=== PATIENT | male | born 1945 | race Caucasian/White ===

== ENCOUNTER 2016-11-05 11:45 | Inpatient (IN) ==
--- NOTE | 2016-11-05 15:08 | Emergency Department Note ---
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 Return to the emergency department if there is bleeding of any type, fever, chest pain, shortness of breath, abdominal pain, increasing redness or swelling in your left foot or leg, coughing up blood, passing out, weakness, any trouble walking talking hearing seeing or speaking, coldness blueness numbness or weakness of any extremity, if the areas of redness in your foot are not improving within 24 hours, blistering of the skin or rapidly spreading redness on the leg, burke discolored toes, worsening or any other concern. Prescriptions: Levofloxacin [Levaquin] 750 mg PO DAILY #4 tablet Referrals: Jun Shah MD [Primary Care Provider] - Forms: ED Satisfaction Letter General Adult HPI - General Chief complaint: ED Extremity Problem,Nontraumatic Stated complaint: left foot/leg swelling Time Seen by Provider: 11/05/16 12:19 Source: patient Limitations: no limitations - History of Present Illness HPI Narrative: 71-year-old male with a history of diabetes mellitus reports emergency department complaining of left foot swelling and redness. His third and fourth toes have become more discolored and now his whole foot is somewhat reddened, he reports it feels hot. There is no history of trauma. There is no history of leg pain. The foot is not been cold blue numb or weak. The patient takes Coumadin for previous DVT, he reports his last INR is 1.7. There is been no calf swelling or tenderness. No chest pain shortness of breath or coughing up blood. No abdominal pain vomiting or bleeding of any type. No trouble walking talking hearing seeing or speaking there is no history of acute headache or back pain. The patient is worried about his left foot, there is concern for potential infection. Pain Scale: 0 - Related Data Home Medications Medication Instructions Recorded Confirmed Alprazolam [Xanax 0.25 MG Tablet] 0.25 mg PO TID PRN 11/16/15 11/05/16 Atenolol [Tenormin] 50 mg PO DAILY 11/16/15 11/05/16 Glimepiride [Amaryl] 2 mg PO DAILY 11/16/15 11/05/16 Indinavir Sulfate [Crixivan] 800 mg PO TID 11/16/15 11/05/16 Lamivudine/Zidovudine [Combivir] 1 tab PO BID 11/16/15 11/05/16 RX: Lisinopril [Zestril] 20 mg PO DAILY 11/16/15 11/05/16 RX: Omeprazole 20 mg PO DAILY 11/16/15 11/05/16 Venlafaxine HCl [Venlafaxine HCl 75 mg PO DAILY 11/16/15 11/05/16 ER] Ergocalciferol (VITAMIN D2) 50,000 unit PO WE 11/05/16 11/05/16 [Vitamin D2] Nut.tx.gluc.intoler,Lac-Fr,Soy 1 can PO BID 11/05/16 11/05/16 [Glucerna] Warfarin [Coumadin] 3 mg PO 1800 11/05/16 11/05/16 Previous Rx's Medication Instructions Recorded Levofloxacin [Levaquin] 750 mg PO DAILY #4 tablet 11/05/16 Allergies Allergy/AdvReac Type Severity Reaction Status Date / Time Sulfa (Sulfonamide Allergy Flushing Verified 11/05/16 12:06 Antibiotics) All systems ED: reviewed and negative except as stated. Past Medical History - Past Medical History Medical history: Reports: diabetes, HIV/AIDS, hypertension, myocardial infarction Surgical history: Reports: other Psychiatric history: Reports: anxiety - Social History Smoking Status: Never smoker Smokeless Tobacco Status: No Alcohol use: Reports: rarely Drug use: Reports: none Physical Exam - General Limitations: no limitations General appearance: alert, in no apparent distress - Head Head exam: atraumatic, normocephalic, normal inspection - Eye Eye exam: Present: normal appearance, PERRL, EOMI. Absent: scleral icterus, conjunctival injection, miosis, mydriasis - ENT ENT exam: normal exam, normal oropharynx, mucous membranes moist, TM's normal bilaterally, normal external ear exam - Neck Neck exam: Present: normal inspection, full ROM, trachea midline - Chest Chest inspection: Present: symmetric chest wall rise. Absent: tenderness - Respiratory Respiratory exam: Present: normal lung sounds bilaterally. Absent: respiratory distress, wheezes, accessory muscle use, prolonged expiratory phase - Cardiovascular Cardiovascular exam: Present: regular rate, normal rhythm, normal heart sounds - Abdominal Exam Abdominal exam: Present: soft, Non-Tender, normal bowel sounds. Absent: tenderness, distention, guarding, rebound, rigidity, pulsatile mass - Extremities Exam Extremities exam: Present: full ROM, normal capillary refill, other (The upper extremities and right lower extremities are supple and warm and well-perfused without acute trauma or acute defect. The left lower extremity shows a good range of motion of the hip knee and ankle, left foot is erythematous and warm to touch. No crepitance of the skin or blackening, toes 3 and 4 the left foot show edema with some slight flaky skin. The dorsalis pedis pulse is easily palpable. All 4 extremities are warm and well perfused without cyanosis.). Absent: tenderness, joint swelling, calf tenderness - Expanded Lower Extremity Exam Hip/Pelvis exam: Present: full ROM. Absent: tenderness Upper leg exam: Present: full ROM. Absent: tenderness Knee exam: Present: full ROM. Absent: tenderness Lower leg exam: Present: full ROM. Absent: tenderness, swelling, abrasion, Homans' sign Ankle exam: Present: full ROM. Absent: tenderness Foot/toe exam: Present: full ROM, tenderness, swelling, erythema. Absent: ecchymosis, deformity, amputation, puncture wound, foreign body, nail avulsion Neurovascular/Tendon exam: Present: normal capillary refill. Absent: pulse deficit, motor deficit, sensory deficit, tendon deficit, extremity cold to touch , pallor - Back Exam Back exam: Present: normal inspection, full ROM. Absent: tenderness, CVA tenderness (R), CVA tenderness (L), vertebral tenderness - Neurological Exam Neurological exam: Present: alert, oriented X3, CN II-XII intact. Absent: motor sensory deficit - Psychiatric Psychiatric exam: Present: normal affect - Skin Skin exam: Present: warm, dry, intact, normal color, other (Skin changes on left foot as described.). Absent: rash, cyanosis, diaphoresis, erythema, pallor , mottled Course Vital Signs Temperature 97.5 F L 11/05/16 12:01 Pulse Rate 84 11/05/16 12:01 Respiratory Rate 16 11/05/16 12:01 Blood Pressure 129/87 11/05/16 12:01 O2 Sat by Pulse Oximetry 95 11/05/16 12:01 Temperature 97.5 F L 11/05/16 12:01 Pulse Rate 84 11/05/16 12:01 Respiratory Rate 16 11/05/16 12:01 Blood Pressure 163/96 11/05/16 15:07 O2 Sat by Pulse Oximetry 95 11/05/16 12:01 Oxygen Delivery Oxygen Delivery Room Air Medical Decision Making - MDM Narrative Medical decision making narrative: The patient appears to be stable, he is known to have HIV, his CBC is normal, lactic acid negative, no evidence of osteomyelitis, acute neurovascular compromise, trauma, or teresa tissue necrosis. The patient preferred to go home and be treated with outpatient antibiotics versus be admitted. I did offer him admission for further evaluation and treatment but he declined. His INR is therapeutic. The patient had a dose of Levaquin IV here. A prescription for Levaquin 750 mg one by mouth daily beginning tomorrow #4 was given. He declined the need for pain medications. He is here with his male car tracer who can monitor him. The patient is ambulatory. He and his male car tracer seem very reliable, they were given detailed verbal and written instructions regarding cellulitis and precautions. He was discharged in stable condition with specific return to ER and follow-up instructions. - Lab Data Lab results reviewed: Yes I reviewed the patient's lab results. Result diagrams: 11/05/16 15:51 11/05/16 17:17 Lab Results 11/05/16 11/05/16 11/05/16 Range/Units 15:51 17:17 17:17 WBC 6.0 (4.3-11.1) K/mcL RBC 4.30 (4.19-5.50) M/mcL Hgb 14.1 (12.9-16.9) g/dL Hct 42.3 (37.5-50.1) % MCV 98.4 (83.0-100.0) fL MCH 32.8 (28.0-33.3) pg MCHC 33.3 (31.6-35.5) g/dL RDW 14.3 (11.5-14.5) % Plt Count 180 (140-400) K/mcL MPV 10.1 (9.4-12.4) fL Immature Gran % 0.2 (0-4) % Seg Neutrophils % 55.0 % Lymphocytes % 32.6 % Monocytes % 9.2 % Eosinophils % 2.7 % Basophils % 0.3 % Neutrophils # 3.3 (1.6-8.9) K/mcL Lymphocytes # 2.0 (0.6-4.6) K/mcL Monocytes # 0.6 (0.0-1.3) K/mcL Eosinophils # 0.2 (0.0-0.6) K/mcL Basophils # 0.0 (0.0-0.2) K/mcL Immature Plt Fraction 5.1 (1.1-6.1) % PT (9.4-12.1) Seconds INR APTT (26.0-36.0) Seconds Sodium 138 (136-145) mEq/L Potassium 4.0 (3.5-4.5) mEq/L Chloride 103 (98-109) mEq/L Carbon Dioxide 26 (19-29) mEq/L BUN 16 (8-26) mg/dL Creatinine 0.85 (0.72-1.25) mg/dL Est GFR ( Amer) > 60 (> 60) Est GFR (Non-Af Amer) > 60 (> 60) BUN/Creatinine Ratio 19 (6-26) Glucose 156 H (70-99) mg/dL Calculated Osmolality 290 (280-300) Lactic Acid 1.5 (0.5-2.2) mmol/L Calcium 9.1 (8.6-10.8) mg/dL C-Reactive Protein 37 H (Less than 5) mg/L 11/05/16 Range/Units 17:17 WBC (4.3-11.1) K/mcL RBC (4.19-5.50) M/mcL Hgb (12.9-16.9) g/dL Hct (37.5-50.1) % MCV (83.0-100.0) fL MCH (28.0-33.3) pg MCHC (31.6-35.5) g/dL RDW (11.5-14.5) % Plt Count (140-400) K/mcL MPV (9.4-12.4) fL Immature Gran % (0-4) % Seg Neutrophils % % Lymphocytes % % Monocytes % % Eosinophils % % Basophils % % Neutrophils # (1.6-8.9) K/mcL Lymphocytes # (0.6-4.6) K/mcL Monocytes # (0.0-1.3) K/mcL Eosinophils # (0.0-0.6) K/mcL Basophils # (0.0-0.2) K/mcL Immature Plt Fraction (1.1-6.1) % PT 21.7 H (9.4-12.1) Seconds INR 2.0 APTT 44.1 H (26.0-36.0) Seconds Sodium (136-145) mEq/L Potassium (3.5-4.5) mEq/L Chloride (98-109) mEq/L Carbon Dioxide (19-29) mEq/L BUN (8-26) mg/dL Creatinine (0.72-1.25) mg/dL Est GFR ( Amer) (> 60) Est GFR (Non-Af Amer) (> 60) BUN/Creatinine Ratio (6-26) Glucose (70-99) mg/dL Calculated Osmolality (280-300) Lactic Acid (0.5-2.2) mmol/L Calcium (8.6-10.8) mg/dL C-Reactive Protein (Less than 5) mg/L - Radiology Data Radiology results reviewed: Yes I reviewed the patient's radiology results.
[2016-11-05 16:06] LABS: Basophils % 0.3 %; Eosinophils # 0.2 K/mcL (0.0-0.6); Eosinophils % 2.7 %; Hematocrit 42.3 % (37.5-50.1); Hemoglobin 14.1 g/dL (12.9-16.9); Immature Granulocytes % 0.2 % (0-4); Immature Platelets 5.1 % (1.1-6.1); Lymphocytes % 32.6 %; Mean Corpuscular HGB Conc 33.3 g/dL (31.6-35.5); Mean Corpuscular Hemoglobin 32.8 pg (28.0-33.3); Mean Corpuscular Volume 98.4 fL (83.0-100.0); Mean Platelet Volume 10.1 fL (9.4-12.4); Monocytes # 0.6 K/mcL (0.0-1.3); Monocytes % 9.2 %; Neutrophils # 3.3 K/mcL (1.6-8.9); Platelet Count 180 K/mcL (140-400); Red Cell Distribution Width 14.3 % (11.5-14.5)
[2016-11-05 17:42] LABS: BUN/Creatinine Ratio 19 (6-26); Blood Urea Nitrogen 16 mg/dL (8-26); Calcium 9.1 mg/dL (8.6-10.8); Carbon Dioxide 26 mEq/L (19-29); Chloride 103 mEq/L (98-109); Glucose 156 mg/dL (70-99); Osmolality,Calculated 290 (280-300); Sodium 138 mEq/L (136-145); eGFR For African Americans > 60 (> 60); eGFR For Non-African Americans > 60 (> 60)
[2016-11-05 17:59] LABS: Prothrombin Time 21.7 Seconds (9.4-12.1)
[2016-11-05 18:05] LABS: C-Reactive Protein 37 mg/L (Less than 5)
[2016-11-05 18:07] LABS: Activated Partial Thrombo Time 44.1 Seconds (26.0-36.0)
[2016-11-05] MEDS ORDERED: Levofloxacin 750 MG/150 ML 750 MG/150 ML BAG IVPB ONE (18:39)
--- NOTE | 2016-11-05 22:12 | Internal Med History&Physical ---
Date of Encounter: 11/05/16 Time of Encounter: 22:11 Assessment and Plan (1) Cellulitis Current visit: Yes Status: Acute patient with a history of diabetes who comes in after self induced trauma to his toe starts off a cellulitis, we will admit for observation on Abx due to his multiple co-morbidities mostly HIV/DM, we will cover for MRSA and pseudomonas with Vancomycin and Zosyn respectively we will do pain management and foot elevation, we will get podiatry to weigh in , currently imaging does not suggest osteomyelitis Qualifiers: Site of cellulitis: extremity Site of cellulitis of extremity: toe Laterality: left Qualified Code(s): L03.032 - Cellulitis of left toe (2) Factor V Leiden Current visit: Yes Status: Chronic he developed Left LLE DVT in 12/2002 and found at the time to have factor V gene mutation so has been on lifelong anticoagulation with warfarin since then , his INR is subtherapeutic at 1.7, we will continue warfarin and follow INR, no need for bridging (3) Hypertension Current visit: Yes Status: Chronic will continue atenolol and lisinopril with BP monitoring Qualifiers: Hypertension type: essential hypertension Qualified Code(s): I10 - Essential (primary) hypertension (4) Diabetes mellitus type II, non insulin dependent Current visit: Yes Status: Chronic hx of type 2 DM, on oral hypoglycemic, we will hold that and do SSI insulin should he have to go for surgery (5) HIV (human immunodeficiency virus infection) Current visit: Yes Status: Chronic he does not recall his last CD4 count but reports compliance with his medications and undetectable viral load, we will continue this medications Internal Medicine - H&P: HPI Chief complaint: left 3rd toe redness and pain Admitted From: Emergency Dept Plans for Post Hospital Care: Home History of present illness: Mr. Ramesh is a 71 year old male with a history of well controlled DM type 2/ HIV with undetectable viral load/well controlled HTN/hammer toes was brought in today for left 3rd toe redness and swelling. Patient reports that he was in his usual state of health until about a week ago when he picked off callus on the left 3rd toe and it bled for a little bit. Since then the toe has been increasingly painful and red but on Friday it started getting swollen and the pain is getting worse so he reported to the ER of [facility] for further care. He denies fever, chills, nausea or vomiting, but reports pain with use of the toe and when he ambulates. No swelling noted in his calves. He reports that he already has an appointment to see Dr Lehman, the independent producer, on Friday. Past Med Surg Social Fam HX - Past Medical History Source: patient Medical history: DVT (LLE DVT 12/2002), diabetes, GERD, HIV/AIDS (in ), hypertension, myocardial infarction (NSTEMI in 03/2004, s/p PCI with stents), other (factor V leiden deficiency) Psychiatric history: anxiety, depression - Past Surgical History Surgical History: angioplasty/stent (1 stent in 03/2004 for NSTEMI) - Social History Smoking Status: Never smoker Smokeless Tobacco Status: No Alcohol use: rarely Drug use: none Current living situation: Home - Independent Activity Level: Independent ambulation - Family History Mother Hx Family Cardiac Disorders: No Hx Family Respiratory Disorders: No Hx Family Cancer: Yes (Uterine cancer) Hx Family GI Disorders: No Hx Family Endocrine Disorder: No Hx Family Neuromuscular Disorders: No Hx Family Neurologic Disorders: No Hx Family HEENT Disorders: No Hx Family Autoimmune Disorders: No Sister Hx Family Cardiac Disorders: No Hx Family Respiratory Disorders: No Hx Family Cancer: Yes (Uterine) Hx Family GI Disorders: No Hx Family Endocrine Disorder: No Hx Family Neuromuscular Disorders: No Hx Family Neurologic Disorders: No Hx Family HEENT Disorders: No Hx Family Autoimmune Disorders: No - Additional Family History Additional family history: He does not know about his father's medical history, mother in her 20's of ovarian cancer, his daughter has factor V leiden mutation Internal Medicine - H&P: Meds Alprazolam [Xanax 0.25 MG Tablet] 0.25 mg PO TID PRN 11/16/15 [History] Atenolol [Tenormin] 50 mg PO DAILY 11/16/15 [History] Glimepiride [Amaryl] 2 mg PO DAILY 11/16/15 [History] Indinavir Sulfate [Crixivan] 800 mg PO TID 11/16/15 [History] Lamivudine/Zidovudine [Combivir] 1 tab PO BID 11/16/15 [History] Lisinopril [Zestril] 20 mg PO DAILY 11/16/15 [History] Omeprazole 20 mg PO DAILY 11/16/15 [History] Venlafaxine HCl [Venlafaxine HCl ER] 75 mg PO DAILY 11/16/15 [History] Ergocalciferol (VITAMIN D2) [Vitamin D2] 50,000 unit PO WE 11/05/16 [History] Levofloxacin [Levaquin] 750 mg PO DAILY #4 tablet 11/05/16 [Rx] Nut.tx.gluc.intoler,Lac-Fr,Soy [Glucerna] 1 can PO BID 11/05/16 [History] Warfarin [Coumadin] 3 mg PO 1800 11/05/16 [History] Allergies Sulfa (Sulfonamide Antibiotics) Allergy (Verified 11/05/16 12:06) Flushing All Systems PM: A 10-system review of systems was performed and is negative for pertinent findings except as documented above in the HPI. - Constitutional Vitals: Temp Pulse Resp BP Pulse Ox 97.6 F 67 16 146/74 95 11/05/16 21:39 11/05/16 21:39 11/05/16 21:39 11/05/16 21:39 11/05/16 21:39 - General General appearance: Elderly male, frail looking, alert, in no apparent distress - Head Head exam: atraumatic, normocephalic, prominent check bones - Eye Eye exam: normal appearance, PERRL, EOMI. Absent: scleral icterus, conjunctival injection, miosis, mydriasis - ENT ENT exam: normal oropharynx, mucous membranes moist, TM's normal bilaterally, normal external ear exam - Neck Neck exam: normal inspection, full ROM, trachea midline - Respiratory Respiratory exam: normal lung sounds bilaterally, no wheeze or crackles heard - Cardiovascular Cardiovascular exam: regular rate, normal rhythm, normal heart sounds, no ankle edema - Abdominal Exam Abdominal exam: soft, Non-Tender, normal bowel sounds, no masses palpable, - Extremities Exam Extremities exam: left 3rd toe ulceration and redness noted, mildly tender to touch, minor 2nd toe involvement noted - Neurological Exam Neurological exam: alert, oriented X3, CN II-XII intact, non focal motor exam but diminished sensation in stocking pattern - Psychiatric Psychiatric exam: Present: normal affect - Skin Skin exam: skin changes per foot exam Internal Med - H&P Results - Labs CBC & Chem 7: 11/06/16 03:29 11/06/16 03:29 - Diagnostic Studies Other Images Status: image reviewed by me (Xray of foot)
[2016-11-05] MEDS ORDERED: Naloxone 0.4 MG/ML INJ IVP PRN (22:19)
[2016-11-05] MEDS ORDERED: Acetaminophen 325 MG TABLET PO PRN (22:19)
[2016-11-05] MEDS ORDERED: ALPRAZolam 0.25 MG TABLET PO PRN (22:21)
[2016-11-05] MEDS ORDERED: Dextrose Gel 15 GM PO PRN ×2 (22:23)
[2016-11-05] MEDS ORDERED: *HR* Dextrose 50 % in Water (Syg) 50 ML SYRINGE IVP PRN (22:23)
[2016-11-05] MEDS ORDERED: D5% in Water 1,000 ML IVC PRN (22:23)
[2016-11-05] MEDS ORDERED: NON-FORMULARY MEDICATION 1 EACH EACH (Nut.Tx.Gluc.Intoler,Lac-Fr,Soy [Glucerna] 1 CAN) PO SCH (22:30)
[2016-11-06] MEDS: *HR* Warfarin 3 MG TABLET PO SCH ×2 (03:00→18:06)
[2016-11-06] MEDS: Insulin LISPRO 300 UNITS/3 ML VIAL SQ SCH ×5 (03:00→21:21)
[2016-11-06] MEDS: [UNRECOGNIZED DRUG - OTHER] PO SCH ×4 (03:00→21:15)
[2016-11-06] MEDS: Vancomycin 1,000 MG in D5% in Water 250 ML IVPB SCH ×3 (03:01→22:34)
[2016-11-06] MEDS: 0.9 % Sodium Chloride 1,000 ML IVC SCH ×4 (03:02→21:15)
[2016-11-06] MEDS: Piperacillin/Tazobactam 3.375 GM in D5% in Water (Mini-Bag+) 100 ML IVPB SCH ×3 (03:21→15:29)
[2016-11-06 04:34] LABS: Basophils % 0.4 %; Eosinophils # 0.2 K/mcL (0.0-0.6); Eosinophils % 3.9 %; Hematocrit 40.3 % (37.5-50.1); Hemoglobin 13.4 g/dL (12.9-16.9); INR 2.1; Immature Granulocytes % 0.2 % (0-4); Lymphocytes # 2.2 K/mcL (0.6-4.6); Lymphocytes % 38.5 %; Mean Corpuscular HGB Conc 33.3 g/dL (31.6-35.5); Mean Corpuscular Hemoglobin 32.7 pg (28.0-33.3); Mean Corpuscular Volume 98.3 fL (83.0-100.0); Mean Platelet Volume 10.2 fL (9.4-12.4); Monocytes # 0.6 K/mcL (0.0-1.3); Monocytes % 9.6 %; Neutrophils # 2.7 K/mcL (1.6-8.9); Platelet Count 163 K/mcL (140-400); Prothrombin Time 23.2 Seconds (9.4-12.1); Red Cell Distribution Width 13.9 % (11.5-14.5); Segmented Neutrophils % 47.4 %
[2016-11-06 04:42] LABS: BUN/Creatinine Ratio 25 (6-26); Blood Urea Nitrogen 18 mg/dL (8-26); Carbon Dioxide 26 mEq/L (19-29); Chloride 105 mEq/L (98-109); Glucose 58 mg/dL (70-99); Magnesium 1.6 mg/dL (1.6-2.6); Osmolality,Calculated 286 (280-300); Phosphorous 3.3 mg/dL (2.3-4.7); Potassium 3.8 mEq/L (3.5-4.5); Sodium 138 mEq/L (136-145); eGFR For African Americans > 60 (> 60); eGFR For Non-African Americans > 60 (> 60)
[2016-11-06] MEDS ORDERED: Vancomycin 1,000 MG in D5% in Water 250 ML IVPB SCH (06:00)
[2016-11-06] MEDS ORDERED: *HR* Glimepiride 2 MG TABLET PO SCH (09:00)
[2016-11-06] MEDS: Venlafaxine XR (24 HR) 75 MG CAP.ER.24H PO SCH (09:15)
[2016-11-06] MEDS: Lisinopril 20 MG TABLET PO SCH (09:18)
--- NOTE | 2016-11-06 12:23 | Podiatry Consult Note ---
Date of Encounter: 11/06/16 Time of Encounter: 11:00 Assessment and Plan (1) Ulcer Current visit: Yes Status: Acute Assessment complete at bedside Xray shows evidence of osteomyelitis to tip of distal phalanx toe #3 Will obtain wound cultures today Will plan for amputation of distal phalanx tomorrow 11/07 per Continue IV antibiotics Scab to toe #2 shows no clinical signs of infection NPO after midnight Call with any questions or concerns (2) Diabetes mellitus type II, non insulin dependent Current visit: Yes Status: Chronic (3) Cellulitis Current visit: Yes Status: Acute Qualifiers: Site of cellulitis: extremity Site of cellulitis of extremity: toe Laterality: left Qualified Code(s): L03.032 - Cellulitis of left toe History of Present Illness HPI: Mr. Ramesh is a 71 year old male with a history of well controlled DM type 2/ HIV with undetectable viral load/well controlled HTN/hammer toes. Patient had scheduled appointment on 11/08 with for issue of digit #3 left foot, however presented to ED stating that toe was more red and swollen than previously noted. Patient states about 2 weeks ago he picked a callus from the distal aspect of toe #3 left foot. Patient states he has hammertoes and callus formation to this area is very common, patient states that since then it has continued to turn darker to the distal aspect and has progressive redness to the toe. He denies fever, chills, nausea or vomiting. States he has pain to toe with ambulation. Patient also reports scab to top of toe #2 left foot, states this appeared after wearing dress shoes on friday but appears to be healing. Patient denies any calf pain. Past Med Surg Social Fam HX - Past Medical History Medical history: DVT (LLE DVT 12/2002), diabetes, GERD, HIV/AIDS (in ), hypertension, myocardial infarction (NSTEMI in 03/2004, s/p PCI with stents), other (factor V leiden deficiency) Psychiatric history: anxiety, depression - Past Surgical History Surgical History: angioplasty/stent (1 stent in 03/2004 for NSTEMI) - Social History Smoking Status: Never smoker Smokeless Tobacco Status: No Alcohol use: rarely Drug use: none - Family History Mother Hx Family Cardiac Disorders: No Hx Family Respiratory Disorders: No Hx Family Cancer: Yes (Uterine cancer) Hx Family GI Disorders: No Hx Family Endocrine Disorder: No Hx Family Neuromuscular Disorders: No Hx Family Neurologic Disorders: No Hx Family HEENT Disorders: No Hx Family Autoimmune Disorders: No Sister Hx Family Cardiac Disorders: No Hx Family Respiratory Disorders: No Hx Family Cancer: Yes (Uterine) Hx Family GI Disorders: No Hx Family Endocrine Disorder: No Hx Family Neuromuscular Disorders: No Hx Family Neurologic Disorders: No Hx Family HEENT Disorders: No Hx Family Autoimmune Disorders: No Medications and Allergies Alprazolam [Xanax 0.25 MG Tablet] 0.25 mg PO TID PRN 11/16/15 [History] Atenolol [Tenormin] 50 mg PO DAILY 11/16/15 [History] Glimepiride [Amaryl] 2 mg PO DAILY 11/16/15 [History] Indinavir Sulfate [Crixivan] 800 mg PO TID 11/16/15 [History] Lamivudine/Zidovudine [Combivir] 1 tab PO BID 11/16/15 [History] Lisinopril [Zestril] 20 mg PO DAILY 11/16/15 [History] Omeprazole 20 mg PO DAILY 11/16/15 [History] Venlafaxine HCl [Venlafaxine HCl ER] 75 mg PO DAILY 11/16/15 [History] Ergocalciferol (VITAMIN D2) [Vitamin D2] 50,000 unit PO WE 11/05/16 [History] Levofloxacin [Levaquin] 750 mg PO DAILY #4 tablet 11/05/16 [Rx] Nut.tx.gluc.intoler,Lac-Fr,Soy [Glucerna] 1 can PO BID 11/05/16 [History] Warfarin [Coumadin] 3 mg PO 1800 11/05/16 [History] Allergies Sulfa (Sulfonamide Antibiotics) Allergy (Verified 11/05/16 12:06) Flushing All Systems Reviewed: A 10-system review of systems was performed and is negative for pertinent findings except as documented above in the HPI. Physical Exam - Constitutional Vitals: Temp Pulse Resp BP Pulse Ox 97.5 F L 64 16 150/82 94 11/06/16 11:02 11/06/16 11:02 11/06/16 11:02 11/06/16 11:02 11/06/16 11:02 - Ankle & Foot Appearance ankle: normal Foot swelling location: toes Foot pain worse with weight bearing: Yes Exam: General Examination: CONSTITUTIONAL: Alert, oriented, in no acute distress, non-toxic. EXTREMITIES: CFT 3 seconds all toes. Edema +1 and pedal pulses +2 DP/PT SKIN: Skin with decreased turgor, decreased subcutaneous tissue, skin thin and shiny with trophic changes associated with comorbidities as described in history.. NEUROLOGIC: Mildly diminished sensation Musculoskeletal: Hammertoe deformity of toes #2 #3 #4 bilaterally Hyperkeratotic/scabbed wet ulceration 1.4x1.4 noted to distal aspect of toe #3 left foot. Purulent drainage expressed with gentle palpation. Mild warmth and edema noted. Erythema noted, does not extend past MP joint of toe. Small 0.2cmx0.2cm scab noted to dorsal aspect of toe #2 left foot. Dry scab. No clinical signs of infection. No erythema, edema, warmth or drainage. Results - Labs Result Diagrams: 11/06/16 03:29 11/06/16 03:29 Labs: Abnormal lab results RBC 4.10 M/mcL (4.19-5.50) L 11/06/16 03:29 PT 23.2 Seconds (9.4-12.1) H 11/06/16 03:29 APTT 44.1 Seconds (26.0-36.0) H 11/05/16 17:17 Glucose 58 mg/dL (70-99) L 11/06/16 03:29 POC Glucose 133 (58-89) H 11/06/16 11:00 C-Reactive Protein 37 mg/L (Less than 5) H 11/05/16 17:17 H & H 11/06/16 Range/Units 03:29 Hgb 13.4 (12.9-16.9) g/dL Hct 40.3 (37.5-50.1) % All other labs normal. Consult Discharge Plan - Plan Referrals: Jun Shah MD [Primary Care Provider] -
--- NOTE | 2016-11-06 17:39 | Internal Med Progress Note ---
Date of Encounter: 11/06/16 Time of Encounter: 09:20 - Assessment and plan (1) Ulcer Current Visit: Yes Status: Acute Assessment and plan: Patient has ulcer to left third toe. Patient states that he had a callus and picked it and it evolved into cellulitis with necrotic tissue. Patient was seen by podiatry today. They have requested wound cultures and that we continue IV antibiotics. Patient will be nothing by mouth after midnight for surgical amputation of distal phalanx tomorrow per Dr. Lehman. Nothing by mouth after midnight Continue IV antibiotics Wound culture Surgery tomorrow. (2) Cellulitis Current Visit: Yes Status: Acute Assessment and plan: Plan as above. Qualifiers: Site of cellulitis: extremity Site of cellulitis of extremity: toe Laterality: left Qualified Code(s): L03.032 - Cellulitis of left toe (3) Factor V Leiden Current Visit: Yes Status: Chronic Assessment and plan: History of DVT. At that time was found to have DrNorberto Black mutation. He has been on Coumadin since 2002 at time of this incident. INR subtherapeutic at 1.7. We will continue warfarin and the follow the INR. Patient has surgery in the morning. (4) Hypertension Current Visit: Yes Status: Chronic Assessment and plan: Chronic. Continue home medications. Qualifiers: Hypertension type: essential hypertension Qualified Code(s): I10 - Essential (primary) hypertension (5) Diabetes mellitus type II, non insulin dependent Current Visit: Yes Status: Chronic Assessment and plan: Chronic. well controlled. A1c 6.6. Continue home medications. (6) HIV (human immunodeficiency virus infection) Current Visit: Yes Status: Chronic Assessment and plan: Patient sees Dr. Shah for HIV. He is not sure of his last T-cell count but states that he takes his medications regularly. Continue medications (7) DVT prophylaxis Current Visit: No Status: Acute Assessment and plan: Patient takes Coumadin. He is having foot surgery tomorrow. Will monitor. - Time Spent With Patient less than 15 minutes - Subjective Interval history: Patient is a very pleasant and alert 71-year-old male who was seen at about 6 920 this morning. He is being seen for cellulitis and is on vancomycin and Zosyn. These antibiotics will be continued. He was seen by Dr. Lehman today as well. Planning for amputation of left third toe tomorrow due to diabetic ulcer. He had a callus and he picked it off and it became infected. He says he does not feel pain. He does have palpable pulses bilateral feet. Left toe wound is not draining or bleeding. It is red and scaly with necrotic tissue on the plantar surface of toe. - Constitutional Vitals: Temp Pulse Resp BP Pulse Ox 98.3 F 76 15 145/81 95 11/06/16 14:59 11/06/16 14:59 11/06/16 14:59 11/06/16 14:59 11/06/16 14:59 General appearance: Present: cooperative, A&O X 3, pleasant, answers questions appropriately - Head Head exam: Present: normal inspection - Eye Eye exam: Present: normal appearance, conjuntiva pink - ENT ENT exam: Present: mucous membranes moist, normal exam - Neck Neck exam general surgery: Present: normal inspection. Absent: lymphadenopathy , tenderness - Respiratory Respiratory exam: Present: decreased breath sounds, CTAB. Absent: respiratory distress, rhonchi, stridor, wheezes - Cardiovascular Cardiovascular exam: Present: RRR, +S1, +S2. Absent: diastolic murmur, systolic murmur - GI/Abdominal GI/Abdominal exam: Present: normal bowel sounds, soft. Absent: distended, hepatomegaly, tenderness - Extremities Exam Extremities exam: Present: full ROM, normal capillary refill, warm, radial pulses palpable and symetrical. Absent: pedal edema, tenderness - Expanded Lower Extremities Exam Foot/Toe exam: Present: erythema, swelling, tenderness - Neurological Exam Neurological exam: Present: alert, oriented X3, no focal deficits, strengths equal and symetr throughout. Absent: facial droop, speech deficit Internal Medicine: Result - Labs CBC & Chem 7: 11/06/16 03:29 11/06/16 03:29 Labs: Short CBC 11/06/16 Range/Units 03:29 WBC 5.7 (4.3-11.1) K/mcL Hgb 13.4 (12.9-16.9) g/dL Hct 40.3 (37.5-50.1) % Plt Count 163 (140-400) K/mcL Neutrophils # 2.7 (1.6-8.9) K/mcL BMP 11/06/16 03:29 Sodium 138 Potassium 3.8 Chloride 105 Carbon Dioxide 26 BUN 18 Creatinine 0.73 Glucose 58 L Calcium 9.0 - ABG Interpretation ABG results: PT/INR, D-dimer PT 23.2 Seconds (9.4-12.1) H 11/06/16 03:29 Consult Discharge Plan - Plan Referrals: Jun Shah MD [Primary Care Provider] -
--- NOTE | 2016-11-06 19:49 | Anesthesia Evaluation PreOp ---
Date of Encounter: 11/06/16 Time of Encounter: 19:47 - Past History Planned Operation: L-foot toe #3 Amputation Cardiac History: ID (NSTEMI 03/2004 s/p stents), HTN (maintained on Atenolol, Lisinopril), Cardiac Stent (stnets x 1 03/2004), Other (ECHO 08/2015 - LVEF 55-60 %, NO SWMA. 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) Alcohol Use: rarely Drug use: none Medications and Allergies ALPRAZolam [Xanax 0.25 MG Tablet] 0.25 mg PO TID PRN 11/16/15 [History] Atenolol [Tenormin] 50 mg PO DAILY 11/16/15 [History] Glimepiride [Amaryl] 2 mg PO DAILY 11/16/15 [History] Indinavir Sulfate [Crixivan] 800 mg PO TID 11/16/15 [History] Lamivudine/Zidovudine [Combivir] 1 tab PO BID 11/16/15 [History] Lisinopril [Zestril] 20 mg PO DAILY 11/16/15 [History] Omeprazole 20 mg PO DAILY 11/16/15 [History] Venlafaxine HCl [Venlafaxine HCl ER] 75 mg PO DAILY 11/16/15 [History] Ergocalciferol (VITAMIN D2) [Vitamin D2] 50,000 unit PO WE 11/05/16 [History] Levofloxacin [Levaquin] 750 mg PO DAILY #4 tablet 11/05/16 [Rx] Nut.tx.gluc.intoler,Lac-Fr,Soy [Glucerna] 1 can PO BID 11/05/16 [History] Warfarin [Coumadin] 3 mg PO 1800 11/05/16 [History] Allergies Sulfa (Sulfonamide Antibiotics) Allergy (Verified 11/05/16 12:06) Flushing - Meds/Allergy Pre-op Review Medications Reviewed: Yes Allergies Reviewed: Yes Beta Blockers on Current Med List: Yes (Atenolol) If Beta Blockers taken, Date/Time (Last Dose taken): 11/06/16 @ 0918 Anesthesia Results - Labs 11/06/16 03:29 11/06/16 03:29 Laboratory Tests 07/16/16 07/16/16 11/05/16 09:35 09:35 17:17 PT INR APTT 44.1 H Est GFR (Non-Af Amer) POC Glucose Est Mean Plasma Glucose 143 Hemoglobin A1c 6.6 H % CD3 Cells 81 Absolute CD3 Count 1841 % CD4 Cells 51 Absolute CD4 Count 1169 T-Lymph CD4/CD8 Ratio 1.76 % CD8 Cells 29 Absolute CD8 Count 660 HCV RNA (PCR) Interp DETECTED A HIV-1 RNA copies/mL <20 11/06/16 11/06/16 11/06/16 03:29 03:29 16:37 PT 23.2 H INR 2.1 APTT Est GFR (Non-Af Amer) > 60 POC Glucose 122 H Est Mean Plasma Glucose Hemoglobin A1c % CD3 Cells Absolute CD3 Count % CD4 Cells Absolute CD4 Count T-Lymph CD4/CD8 Ratio % CD8 Cells Absolute CD8 Count HCV RNA (PCR) Interp HIV-1 RNA copies/mL Laboratory Results Impressions Foot X-Ray 11/05/16 16:25 IMPRESSION: No radiographic evidence of osteomyelitis. D/ / 11/05/2016 17:07:06 Nirav Marshall MD / elise Interpreting Provider: Nirav Marshall MD - Imaging EKG: image reviewed (77bpm SR w/occasional Supraventric premature complexes, LVH , non-specific T-wave abnl) Anesthesia Exam Vital Signs Temp Pulse Resp BP Pulse Ox 11/06/16 18:25 98.7 F 74 16 156/91 96 11/06/16 14:59 98.3 F 76 15 145/81 95 11/06/16 11:02 97.5 F L 64 16 150/82 94 11/06/16 09:15 93 11/06/16 07:55 97.9 F 66 15 93 11/06/16 04:12 97.6 F 68 14 131/69 95 11/05/16 21:39 97.6 F 67 16 146/74 95 11/05/16 20:43 16 140/84 11/05/16 20:24 66 16 142/80 96 Intake and Output 11/06/16 11/06/16 11/06/16 07:59 15:59 23:59 Intake Total 350 / 350 1820 / 1820 240 / 240 Output Total 500 / 500 1100 / 1100 Balance -150 / -150 720 / 720 240 / 240 Intake: IV Fluids 350 / 350 1100 / 1100 0.9 % Sodium Chloride 1, 1000 / 1000 000 ML @ 125 mls/hr IVC . Q8H BETZAIDA Rx#:[id number] Zosyn 3.375 GM In 100 / 100 100 / 100 Dextrose 5% (Minibag+) 100 ML 100 ML @ 25 mls/hr IVPB Q8HR BETZAIDA Rx#: [id number] Vancocin 1,000 MG In 250 / 250 Dextrose 5% 250 ML @ 166. 667 mls/hr IVPB Q12H BETZAIDA Rx#:[id number] Oral 720 / 720 240 / 240 Output: Urine 500 / 500 1100 / 1100 Other: Meal Lunch Dinner Percent of Meal Consumed 100% 75% Weight 72 kg Blood Glucose* 86 133 100 Patient Weight 11/06/16 23:59 Weight 72 kg - HEENT Pupil (Motor): Pupils equal, EOMI Mallampati: II Teeth: Poor dentition Oral Opening: Greater than 3 - CALL CENTER REPRESENTATIVE LOC: Oriented CALL CENTER REPRESENTATIVE Motor: Normal RUE, Normal LUE, Normal RLE, Normal LLE, Normal Face CALL CENTER REPRESENTATIVE Sensory: Normal: RUE, LUE, RLE, LLE, Face - Cardiac Rhythm: Regular Murmur: None - Pulmonary Breath Sounds: bilateral Clear Respiratory Effort: Symmetrical Anesthesia Assess/Plan ASA Score: 3 (HIV, DM, HTN, Factor V Leiden) Modified [place] Scale for Level of Consciousness: Cooperative, oriented, and tranquil Anesthetic Plan: General Monitoring Plan: Standard Monitors Recovery Plan: PACU Anes Supervising Prov Stmt: Pt seen/evaluated, R&B Discussed questions answered and consent obtained. - MD Chris
[2016-11-07] MEDS: Piperacillin/Tazobactam 3.375 GM in D5% in Water (Mini-Bag+) 100 ML IVPB SCH ×3 (00:26→16:22)
[2016-11-07 05:18] LABS: INR 1.9; Prothrombin Time 21.2 Seconds (9.4-12.1)
[2016-11-07 05:24] LABS: Basophils % 0.4 %; Eosinophils # 0.2 K/mcL (0.0-0.6); Eosinophils % 2.8 %; Hematocrit 38.6 % (37.5-50.1); Hemoglobin 12.7 g/dL (12.9-16.9); Immature Granulocytes % 0.4 % (0-4); Lymphocytes # 2.1 K/mcL (0.6-4.6); Lymphocytes % 39.5 %; Mean Corpuscular HGB Conc 32.9 g/dL (31.6-35.5); Mean Corpuscular Hemoglobin 32.4 pg (28.0-33.3); Mean Corpuscular Volume 98.5 fL (83.0-100.0); Mean Platelet Volume 10.1 fL (9.4-12.4); Monocytes # 0.5 K/mcL (0.0-1.3); Neutrophils # 2.5 K/mcL (1.6-8.9); Platelet Count 158 K/mcL (140-400); Red Blood Count 3.92 M/mcL (4.19-5.50); Red Cell Distribution Width 14.1 % (11.5-14.5); Segmented Neutrophils % 47.9 %
[2016-11-07] MEDS: 0.9 % Sodium Chloride 1,000 ML IVC SCH (05:44)
[2016-11-07 05:45] LABS: BUN/Creatinine Ratio 18 (6-26); Blood Urea Nitrogen 14 mg/dL (8-26); Calcium 8.4 mg/dL (8.6-10.8); Carbon Dioxide 23 mEq/L (19-29); Chloride 107 mEq/L (98-109); Glucose 96 mg/dL (70-99); Osmolality,Calculated 290 (280-300); Potassium 3.6 mEq/L (3.5-4.5); Sodium 140 mEq/L (136-145); eGFR For African Americans > 60 (> 60); eGFR For Non-African Americans > 60 (> 60)
[2016-11-07] MEDS: Insulin LISPRO 300 UNITS/3 ML VIAL SQ SCH ×4 (08:43→21:56)
[2016-11-07] MEDS: Venlafaxine XR (24 HR) 75 MG CAP.ER.24H PO SCH (09:09)
[2016-11-07] MEDS: [UNRECOGNIZED DRUG - OTHER] PO SCH ×2 (09:09→21:57)
[2016-11-07] MEDS: Lisinopril 20 MG TABLET PO SCH (09:09)
[2016-11-07] MEDS ORDERED: *HR* FentaNYL (PF) 100 MCG/2 ML VIAL ONE (13:15)
[2016-11-07] MEDS ORDERED: Bupivacaine/Clonidine Syringe 1 EACH SYRINGE ONE (13:37)
--- NOTE | 2016-11-07 14:48 | Orthopedic Operative Note ---
Date of procedure: 11/07/16 Pre-op diagnosis: Necrotic toe #3 left foot Post-op diagnosis: other (Osteomyelitis distal phalanx) Procedure: 11/07/16 14:43 #1 Amputation toe #3 left Implants: None Complications: None Anesthesia: MAC Local Anesthetics: 0.25% Sensorcaine HCL SubQ (cc) Surgeon: Rajat Lehman Estimated blood loss (cc): 5 Tourniquet Time (Minutes): 0 Specimen: Toe #3 left Condition: stable Disposition: floor Procedure in Detail: 11/07/16 14:48 Details in summary of procedure: Patient brought to surgical suite. Sign in procedure performed. Patient transferred the surgical table and positioned properly safely and securely. Left foot elevated on foam block. Anesthetic timeout taken. Left foot prepped with alcohol 3 times. The block carried out at distal shaft of the third metatarsal left foot with local anesthetic no difficulties. Left foot then prepped in the usual sterile manner. Surgical timeout taken. Inspection of the third toe revealed necrosis of the distal tip with seropurulent drainage. It was cultured aerobic and anaerobic. The distal one third of the toe was necrotic and was advancing plantarly to the sulcus. It was then decided to perform a more proximal amputation to avoid compromising the closure. At that juncture a medial incision was begun at the junction of the medial plantar skin of the third toe and brought distally to the PIPJ and then transversely to the lateral plantar skin and then proximally at that juncture lateral incision was then begun at the level of the PIPJ and brought laterally to the sulcus laterally and medially. The toe was then disarticulated at the DIPJ and sent for gross and microscopic after culture of the bone/distal phalanx. The middle phalanx was exposed and the joint was found to be compromised. The bone was not of normal color texture density it was then divided at the level of the PIPJ and sent for gross and microscopic. We are than left with the distal one third of the proximal phalanx exposed with adequate coverage of soft tissue but would be under tension. Therefore at the level of periosteum dissection was continued proximally to the base of the proximal phalanx which was then divided in a transverse fashion using a bone forceps. The remainder bone was then remodeled using a rongeur and a rasp. Wound was flushed with copious amounts of sterile saline finding no bone chips or debris a dorsal flap was then fashioned and the plantar flap was remodeled to allow the dorsal flap to lay over the wound without tension. It was then closed with 4-0 Prolene. Prior to closure the wound was thoroughly inspected and found to be without any evidence of necrotic or nonviable tissue remaining tissue is pink healthy and was noted to bleed freely without necessitating use of Bovie ligature. Closure was uneventful using 4-0 interrupted sutures of Prolene. Capillary refill time was noted to be less than 3 seconds dorsal flap and the plantar sulcus. Complications, none S. Blood loss less than 5 mL. A dry sterile dressing consisting of Adaptic with Betadine 4 x 4's and Kerlix and a mild compressive dressing was achieved without difficulty. Note that no tourniquet was used. Patient tolerated procedure and was sent to holding room in good condition with vital signs stable.
[2016-11-07] MEDS ORDERED: D5% in Water 1,000 ML IVC PRN (15:14)
[2016-11-07] MEDS ORDERED: Naloxone 0.4 MG/ML INJ IVP PRN (15:14)
[2016-11-07] MEDS ORDERED: Dextrose Gel 15 GM PO PRN ×2 (15:14)
[2016-11-07] MEDS ORDERED: ALPRAZolam 0.25 MG TABLET PO PRN (15:14)
[2016-11-07] MEDS ORDERED: *HR* Dextrose 50 % in Water (Syg) 50 ML SYRINGE IVP PRN (15:14)
[2016-11-07] MEDS ORDERED: Acetaminophen 325 MG TABLET PO PRN (15:14)
--- NOTE | 2016-11-07 18:01 | Internal Med Progress Note ---
Date of Encounter: 11/07/16 Time of Encounter: 10:00 - Assessment and plan (1) Necrosis of toe Current Visit: Yes Status: Acute Assessment and plan: Left third toe distal necrosis with surrounded cellulitis. Blood cultures negative so far. Wound culture growing group G Streptococcus. Appreciate podiatry input. Continue IV Zosyn. Plan for surgery today. (2) Cellulitis Current Visit: Yes Status: Acute Assessment and plan: Plan as above. Qualifiers: Site of cellulitis: extremity Site of cellulitis of extremity: toe Laterality: left Qualified Code(s): L03.032 - Cellulitis of left toe (3) Diabetes mellitus type II, non insulin dependent Current Visit: Yes Status: Chronic Assessment and plan: Chronic. well controlled. A1c 6.6. holding oral medications. continue sliding scale and diabetic diet. (4) Hypertension Current Visit: Yes Status: Chronic Assessment and plan: well-Controlled. Continue home medications. Qualifiers: Hypertension type: essential hypertension Qualified Code(s): I10 - Essential (primary) hypertension (5) HIV (human immunodeficiency virus infection) Current Visit: Yes Status: Chronic Assessment and plan: Patient sees Dr. Shah for HIV. He is not sure of his last T-cell count but states that he takes his medications regularly. Continue home medications - Subjective Interval history: patient denies any pain in left foot. - Constitutional Vitals: Temp Pulse Resp BP Pulse Ox 98.0 F 76 15 117/76 95 11/07/16 15:10 11/07/16 15:10 11/07/16 15:10 11/07/16 15:10 11/07/16 15:10 General appearance: Present: cooperative, A&O X 3, pleasant, no acute distress, answers questions appropriately - Eye Eye exam: Present: PERRL, sclera anicteric - Neck Neck exam general surgery: Present: supple, trachea midline. Absent: lymphadenopathy - Respiratory Respiratory exam: Present: CTAB - Cardiovascular Cardiovascular exam: Present: RRR - GI/Abdominal GI/Abdominal exam: Present: normal bowel sounds, soft. Absent: distended, tenderness - Extremities Exam Additional comments: left foot: third digit has a necrotic ulceration with surrounding cellulitis. - Neurological Exam Neurological exam: Present: alert, oriented X3, no focal deficits, strengths equal and symetr throughout. Absent: facial droop, speech deficit - Skin Skin exam: Absent: rash Internal Medicine: Result - Labs CBC & Chem 7: 11/07/16 04:36 11/07/16 04:36 Labs: Short CBC 11/07/16 Range/Units 04:36 WBC 5.3 (4.3-11.1) K/mcL Hgb 12.7 L (12.9-16.9) g/dL Hct 38.6 (37.5-50.1) % Plt Count 158 (140-400) K/mcL Neutrophils # 2.5 (1.6-8.9) K/mcL BMP 11/07/16 04:36 Sodium 140 Potassium 3.6 Chloride 107 Carbon Dioxide 23 BUN 14 Creatinine 0.77 Glucose 96 Calcium 8.4 L - ABG Interpretation ABG results: PT/INR, D-dimer PT 21.2 Seconds (9.4-12.1) H 11/07/16 04:36 Consult Discharge Plan - Plan Referrals: Jun Shah MD [Primary Care Provider] -
[2016-11-07] MEDS: Vancomycin 1,000 MG in D5% in Water 250 ML IVPB SCH (23:59)
[2016-11-08 03:37] LABS: Basophils % 0.3 %; Eosinophils # 0.1 K/mcL (0.0-0.6); Eosinophils % 2.3 %; Hematocrit 37.5 % (37.5-50.1); Hemoglobin 12.7 g/dL (12.9-16.9); Immature Granulocytes % 0.5 % (0-4); Lymphocytes % 33.5 %; Mean Corpuscular HGB Conc 33.9 g/dL (31.6-35.5); Mean Corpuscular Hemoglobin 32.8 pg (28.0-33.3); Mean Corpuscular Volume 96.9 fL (83.0-100.0); Monocytes # 0.6 K/mcL (0.0-1.3); Monocytes % 10.2 %; Neutrophils # 3.2 K/mcL (1.6-8.9); Platelet Count 148 K/mcL (140-400); Red Blood Count 3.87 M/mcL (4.19-5.50); Red Cell Distribution Width 14.1 % (11.5-14.5); Segmented Neutrophils % 53.2 %
[2016-11-08 03:50] LABS: BUN/Creatinine Ratio 16 (6-26); Blood Urea Nitrogen 12 mg/dL (8-26); Calcium 8.5 mg/dL (8.6-10.8); Carbon Dioxide 26 mEq/L (19-29); Chloride 104 mEq/L (98-109); Glucose 89 mg/dL (70-99); Magnesium 1.7 mg/dL (1.6-2.6); Osmolality,Calculated 287 (280-300); Potassium 3.9 mEq/L (3.5-4.5); Sodium 139 mEq/L (136-145); eGFR For African Americans > 60 (> 60); eGFR For Non-African Americans > 60 (> 60)
[2016-11-08] MEDS: Insulin LISPRO 300 UNITS/3 ML VIAL SQ SCH ×4 (08:14→21:54)
[2016-11-08] MEDS: Piperacillin/Tazobactam 3.375 GM in D5% in Water (Mini-Bag+) 100 ML IVPB SCH ×2 (08:26)
[2016-11-08] MEDS: Lisinopril 20 MG TABLET PO SCH (08:27)
[2016-11-08] MEDS: Venlafaxine XR (24 HR) 75 MG CAP.ER.24H PO SCH (08:27)
[2016-11-08] MEDS: [UNRECOGNIZED DRUG - OTHER] PO SCH ×3 (08:30→21:56)
[2016-11-08] MEDS: Vancomycin 1,000 MG in D5% in Water 250 ML IVPB SCH (11:15)
--- NOTE | 2016-11-08 17:04 | Internal Med Progress Note ---
Date of Encounter: 11/08/16 Time of Encounter: 17:00 - Assessment and plan (1) Necrosis of toe Current Visit: Yes Status: Acute Assessment and plan: Left third toe distal necrosis with surrounded cellulitis. S/p amputation by Dr Lehman Blood cultures negative so far. Wound culture growing group G Streptococcus. Discontinue vancomycin and IV Zosyn day 4 start Unasyn , may dicharge on augmentin to complete 7 days . (2) Factor V Leiden Current Visit: Yes Status: Chronic Assessment and plan: History of DVT. At that time was found to have factor V mutation. He has been on Coumadin since 2002 at time of this incident. INR subtherapeutic at 1.9. We will continue warfarin and the follow the INR. (3) Hypertension Current Visit: Yes Status: Chronic Assessment and plan: add hydralazine PRN Qualifiers: Hypertension type: essential hypertension Qualified Code(s): I10 - Essential (primary) hypertension (4) Diabetes mellitus type II, non insulin dependent Current Visit: Yes Status: Chronic Assessment and plan: Chronic. well controlled. A1c 6.6. holding oral medications. continue sliding scale and diabetic diet. (5) HIV (human immunodeficiency virus infection) Current Visit: Yes Status: Chronic Assessment and plan: Patient sees Dr. Shah for HIV. He is not sure of his last T-cell count but states that he takes his medications regularly. Continue home medications - Subjective Interval history: has only rajat discomfort over the left foot , denies CP or SOB, no fever, no abdominal pain , no dysuria , no cough - Constitutional Vitals: Temp Pulse Resp BP Pulse Ox 98.8 F 91 16 154/87 94 11/08/16 10:23 11/08/16 10:23 11/08/16 10:23 11/08/16 10:23 11/08/16 10:23 General appearance: Present: cachectic, cooperative, A&O X 3, pleasant, no acute distress, answers questions appropriately - Head Head exam: Present: atraumatic, normocephalic - Eye Eye exam: Present: PERRL, conjuntiva pink, sclera anicteric Pupils: Present: PERRL - Neck Neck exam general surgery: Present: supple, trachea midline. Absent: lymphadenopathy - Respiratory Respiratory exam: Present: CTAB. Absent: accessory muscle use, rales, rhonchi, wheezes - Cardiovascular Cardiovascular exam: Present: RRR, +S1, +S2. Absent: diastolic murmur, gallop, rubs, systolic murmur - GI/Abdominal GI/Abdominal exam: Present: normal bowel sounds, soft, no peritoneal signs. Absent: distended, tenderness - Extremities Exam Extremities exam: Present: warm, radial pulses palpable and symetrical. Absent : calf tenderness, cyanotic, pedal edema - Neurological Exam Neurological exam: Present: CN II-XII intact, oriented X3, no focal deficits. Absent: pronater drift, facial droop, speech deficit - Skin Skin exam: Present: dry. Absent: intact (left 3rd toe amputation wound with minimal erythema) Internal Medicine: Result - Labs CBC & Chem 7: 11/08/16 03:21 11/08/16 03:21 Labs: Short CBC 11/08/16 Range/Units 03:21 WBC 6.1 (4.3-11.1) K/mcL Hgb 12.7 L (12.9-16.9) g/dL Hct 37.5 (37.5-50.1) % Plt Count 148 (140-400) K/mcL Neutrophils # 3.2 (1.6-8.9) K/mcL BMP 11/08/16 03:21 Sodium 139 Potassium 3.9 Chloride 104 Carbon Dioxide 26 BUN 12 Creatinine 0.75 Glucose 89 Calcium 8.5 L - ABG Interpretation ABG results: PT/INR, D-dimer PT 21.2 Seconds (9.4-12.1) H 11/07/16 04:36 Consult Discharge Plan - Plan Referrals: Jun Shah MD [Primary Care Provider] -
--- NOTE | 2016-11-08 17:30 | Podiatry Progress Note ---
Date of Encounter: 11/08/16 Time of Encounter: 12:00 - Assessment and Plan (1) Ulcer Current Visit: Yes Status: Acute Dressing changed at bedside Cleansed with saline Adaptic, 4x4 and kerlex applied Daily dressing changes Will order post op shoe for ambulation Antibiotic coverage per internal med- appears wound + Group G Strep, surgical cultures pending May be discharged per podiatry standpoint Will need to be seen in office in 1 week Patient going to [facility]. Call with any issues or concerns, fevers, chills, n/v or flu like symptoms. (2) Diabetes mellitus type II, non insulin dependent Current Visit: Yes Status: Chronic (3) Cellulitis Current Visit: Yes Status: Acute Qualifiers: Site of cellulitis: extremity Site of cellulitis of extremity: toe Laterality: left Qualified Code(s): L03.032 - Cellulitis of left toe Subjective Interval history: 1 day s/p #1 Amputation toe #3 left. Upon arrival to the room, patient resting comfortably. Patient denies any pain at this time. Dressing intact to foot. Patient has been ambulating in room with pressure to heel. Patient denies any fevers, chills, n/v or flu like symptoms. Patient will go to [facility] for 2 weeks. Objective - Vital Signs Vital Signs: Vital Signs Temp Pulse Resp BP Pulse Ox 11/08/16 14:21 98.5 F 86 18 147/83 93 11/08/16 10:23 98.8 F 91 16 154/87 94 11/08/16 06:37 98.5 F 86 16 149/83 95 11/08/16 04:14 98.7 F 80 15 153/85 94 11/07/16 23:23 98.6 F 83 15 158/83 95 11/07/16 20:14 98.5 F 85 17 154/78 98 Intake and Output 11/08/16 11/08/16 11/08/16 07:59 15:59 23:59 Intake Total 250 / 250 200 / 200 250 / 250 Output Total 950 / 950 500 / 500 Balance -700 / -700 -300 / -300 250 / 250 Intake: IV Fluids 250 / 250 200 / 200 250 / 250 Zosyn 3.375 GM In 200 / 200 Dextrose 5% (Minibag+) 100 ML 100 ML @ 25 mls/hr IVPB Q8H BETZAIDA Rx#: [id number] Vancocin 1,000 MG In 250 / 250 250 / 250 Dextrose 5% 250 ML @ 166. 667 mls/hr IVPB Q12H BETZAIDA Rx#:[id number] Output: Urine 950 / 950 500 / 500 Other: Blood Glucose* 81 145 104 - Exam Exam: General Examination: CONSTITUTIONAL: Alert, oriented, in no acute distress, non-toxic. EXTREMITIES: CFT 3 seconds all toes. Edema +1 and pedal pulses palpable. SKIN: Skin with decreased turgor, decreased subcutaneous tissue, skin thin and shiny with trophic changes associated with comorbidities as described in history.. NEUROLOGIC: Grossly intact epicritic and vibratory sensation from toes to tibia, evidenced with use of monofilament 5.07 and tuning fork at 128 CPS. Patient complains of paresthesias and dysesthesias. Significant loss of sensation Dressing removed, site cleaned, sutures intact, mild erythema to surgical site. Appears to be healing without issue. No bleeding or drainage. Expected mild edema noted. Minimal sensation due to neuropathy. No calf pain with manual compression - Lab Result Diagrams: 11/08/16 03:21 11/08/16 03:21 Labs: Abnormal lab results RBC 3.87 M/mcL (4.19-5.50) L 11/08/16 03:21 Hgb 12.7 g/dL (12.9-16.9) L 11/08/16 03:21 PT 21.2 Seconds (9.4-12.1) H 11/07/16 04:36 APTT 44.1 Seconds (26.0-36.0) H 11/05/16 17:17 POC Glucose 145 (58-89) H 11/08/16 11:15 Calcium 8.5 mg/dL (8.6-10.8) L 11/08/16 03:21 C-Reactive Protein 37 mg/L (Less than 5) H 11/05/16 17:17 Microbiology, Last 48 Hours 11/07/16 19:01 Surgical Biopsy Culture - Preliminary Left Third Toe 11/07/16 19:01 Gram Stain - Final Left Third Toe 11/06/16 18:00 Wound Culture - Final Left Third Toe Group G Streptococcus 11/06/16 18:00 Gram Stain - Final Left Third Toe Consult Discharge Plan - Plan Referrals: Jun Shah MD [Primary Care Provider] -
[2016-11-08] MEDS: Ampicillin/Sulbactam 1,500 MG in 0.9 % Sodium Chloride Mini Bag 100 ML IVPB SCH ×2 (19:01→23:27)
[2016-11-09 05:26] LABS: Hematocrit 38.6 % (37.5-50.1); Hemoglobin 12.7 g/dL (12.9-16.9); Mean Corpuscular HGB Conc 32.9 g/dL (31.6-35.5); Mean Corpuscular Hemoglobin 32.3 pg (28.0-33.3); Mean Corpuscular Volume 98.2 fL (83.0-100.0); Mean Platelet Volume 10.2 fL (9.4-12.4); Platelet Count 155 K/mcL (140-400); Red Blood Count 3.93 M/mcL (4.19-5.50); Red Cell Distribution Width 13.6 % (11.5-14.5)
[2016-11-09] MEDS: Ampicillin/Sulbactam 1,500 MG in 0.9 % Sodium Chloride Mini Bag 100 ML IVPB SCH (05:37)
[2016-11-09 05:40] LABS: BUN/Creatinine Ratio 19 (6-26); Blood Urea Nitrogen 14 mg/dL (8-26); Calcium 8.9 mg/dL (8.6-10.8); Carbon Dioxide 27 mEq/L (19-29); Chloride 105 mEq/L (98-109); Glucose 84 mg/dL (70-99); Osmolality,Calculated 288 (280-300); Potassium 3.8 mEq/L (3.5-4.5); Sodium 139 mEq/L (136-145); eGFR For African Americans > 60 (> 60); eGFR For Non-African Americans > 60 (> 60)
[2016-11-09 07:02] VITALS: BP 156/85
--- NOTE | 2016-11-09 08:15 | Discharge Summary ---
Date of Encounter: 11/09/16 Time of Encounter: 08:13 - Discharge Diagnosis (1) Necrosis of toe Priority: Primary Status: Acute Comments: Left third toe distal necrosis with surrounded cellulitis. (2) Factor V Leiden Priority: Secondary Status: Chronic (3) Hypertension Priority: Secondary Status: Chronic Qualifiers: Hypertension type: essential hypertension Qualified Code(s): I10 - Essential (primary) hypertension (4) Diabetes mellitus type II, non insulin dependent Priority: Secondary Status: Chronic (5) HIV (human immunodeficiency virus infection) Priority: Secondary Status: Chronic - Discharge Medications Prescriptions: ALPRAZolam [Xanax 0.25 MG Tablet] 0.25 mg PO TID PRN #20 tablet PRN Reason: Anxiety Amoxicillin/Clavulanate [Augmentin] 875 mg PO BID #7 tablet Home Medications: Atenolol [Tenormin] 50 mg PO DAILY 11/16/15 [History] Glimepiride [Amaryl] 2 mg PO DAILY 11/16/15 [History] Indinavir Sulfate [Crixivan] 800 mg PO TID 11/16/15 [History] Lamivudine/Zidovudine [Combivir] 1 tab PO BID 11/16/15 [History] Lisinopril [Zestril] 20 mg PO DAILY 11/16/15 [History] Omeprazole 20 mg PO DAILY 11/16/15 [History] Venlafaxine HCl [Venlafaxine HCl ER] 75 mg PO DAILY 11/16/15 [History] Ergocalciferol (VITAMIN D2) [Vitamin D2] 50,000 unit PO WE 11/05/16 [History] Levofloxacin [Levaquin] 750 mg PO DAILY #4 tablet 11/05/16 [Rx] Nut.tx.gluc.intoler,Lac-Fr,Soy [Glucerna] 1 can PO BID 11/05/16 [History] Warfarin [Coumadin] 3 mg PO 1800 11/05/16 [History] ALPRAZolam [Xanax 0.25 MG Tablet] 0.25 mg PO TID PRN #20 tablet 11/09/16 [Rx] Acetaminophen [Tylenol] 650 mg PO Q6HR PRN #0 tablet 11/09/16 [Rx] Amoxicillin/Clavulanate [Augmentin] 875 mg PO BID #7 tablet 11/09/16 [Rx] Allergies/Adverse Reactions: Allergies Sulfa (Sulfonamide Antibiotics) Allergy (Verified 11/05/16 12:06) [place] Date of admission: 11/06/16 17:49 Primary care physician: Jun Shah MD - Patient Status Disposition: Transfer SNF Condition: Good Overall status at discharge: patient is progressing back to baseline - Discharge Instructions Follow Up With: Jun Shah MD [Primary Care Provider] - Additional Instructions: Follow with primary care physician after being discharged from rehabilitation facility. Follow-up with Dr. Lehman within the next week. Continue Augmentin. - Diet and Activity Activity: increase activity as tolerated Diet: diabetic diet Hospital course: Mr. Ramesh is a 71 year old male with a history of well controlled DM type 2/ HIV with undetectable viral load/well controlled HTN/hammer toes was brought in to the ER for left 3rd toe redness and swelling. Patient reported that he was in his usual state of health until about a week ago when he picked off callus on the left 3rd toe and it bled for a little bit. Since then the toe became increasingly painful and red but on Friday it started getting swollen and the pain is getting worse so he reported to the ER of [facility] for further care. Was evaluated by Dr Lehman and was recommended to undergo an amputation as the x- ray showed evidence of osteomyelitis in the tip of the distal phalanx. Upon admission the patient was started on vancomycin and Zosyn. Blood cultures negative so far. First Wound culture grew group G Streptococcus for which the patient was started on Unasyn. The second wound culture is possibly growing Staphylococcus, I called the lab and they informed me that most likely it is not MRSA for which Augmentin should be useful as well. The wound is appearing a lot better and the patient is okay with the radio being discharged to [facility]. I will review them second culture myself within the next day or 2 and will call the facility if a different antibiotic therapy would need to be started. - Time Spent with Patient Total time spent providing and/or coordinating discharge services: Greater than 30 minutes (40 min) - Constitutional Vitals: Temp Pulse Resp BP Pulse Ox 97.7 F 74 14 156/85 97 11/09/16 06:56 11/09/16 06:56 11/09/16 06:56 11/09/16 06:56 11/09/16 06:56 General appearance: Present: cachectic, cooperative, A&O X 3, pleasant, no acute distress, answers questions appropriately - Head Head exam: Present: atraumatic, normocephalic - Eye Eye exam: Present: PERRL, conjuntiva pink, sclera anicteric Pupils: Present: PERRL - Neck Neck exam general surgery: Present: supple, trachea midline. Absent: lymphadenopathy - Respiratory Respiratory exam: Present: CTAB. Absent: accessory muscle use, rales, rhonchi, wheezes - Cardiovascular Cardiovascular exam: Present: RRR, +S1, +S2. Absent: diastolic murmur, gallop, rubs, systolic murmur - GI/Abdominal GI/Abdominal exam: Present: normal bowel sounds, soft, no peritoneal signs. Absent: distended, tenderness - Extremities Exam Extremities exam: Present: warm, radial pulses palpable and symetrical. Absent : calf tenderness, cyanotic, pedal edema - Neurological Exam Neurological exam: Present: CN II-XII intact, oriented X3, no focal deficits. Absent: pronater drift, facial droop, speech deficit - Skin Skin exam: Present: dry. Absent: intact (Left foot third toe amputation wound without erythema)
--- NOTE | 2016-11-09 08:28 | Physician Discharge Referral ---
ExtendedCare Referral Info Provider in Charge after Transfer: PCP Institutional Level of Care: Skilled - Diagnosis (1) Necrosis of toe Status: Acute (2) Factor V Leiden Status: Chronic (3) Hypertension Status: Chronic (4) Diabetes mellitus type II, non insulin dependent Status: Chronic (5) HIV (human immunodeficiency virus infection) Status: Chronic - Transfer Medications Prescriptions: ALPRAZolam [Xanax 0.25 MG Tablet] 0.25 mg PO TID PRN #20 tablet PRN Reason: Anxiety Amoxicillin/Clavulanate [Augmentin] 875 mg PO BID #7 tablet Home Medications: Atenolol [Tenormin] 50 mg PO DAILY 11/16/15 [History] Glimepiride [Amaryl] 2 mg PO DAILY 11/16/15 [History] Indinavir Sulfate [Crixivan] 800 mg PO TID 11/16/15 [History] Lamivudine/Zidovudine [Combivir] 1 tab PO BID 11/16/15 [History] Lisinopril [Zestril] 20 mg PO DAILY 11/16/15 [History] Omeprazole 20 mg PO DAILY 11/16/15 [History] Venlafaxine HCl [Venlafaxine HCl ER] 75 mg PO DAILY 11/16/15 [History] Ergocalciferol (VITAMIN D2) [Vitamin D2] 50,000 unit PO WE 11/05/16 [History] Levofloxacin [Levaquin] 750 mg PO DAILY #4 tablet 11/05/16 [Rx] Nut.tx.gluc.intoler,Lac-Fr,Soy [Glucerna] 1 can PO BID 11/05/16 [History] Warfarin [Coumadin] 3 mg PO 1800 11/05/16 [History] ALPRAZolam [Xanax 0.25 MG Tablet] 0.25 mg PO TID PRN #20 tablet 11/09/16 [Rx] Acetaminophen [Tylenol] 650 mg PO Q6HR PRN #0 tablet 11/09/16 [Rx] Amoxicillin/Clavulanate [Augmentin] 875 mg PO BID #7 tablet 11/09/16 [Rx] Allergies/Adverse Reactions: Allergies Sulfa (Sulfonamide Antibiotics) Allergy (Verified 11/05/16 12:06) [place] - Respiratory Orders Smoking Cessation: Smoking cessation has been advised. For more information, call the [place] Tobacco Quit Line at 1-986-KDFA-NOW. - Advance Directives Code Status: Full Code - Treatments List/Other: Follow with primary care physician after being discharged from rehabilitation facility. Follow-up with Dr. Lehman within the next week. Continue Augmentin. CERTIFICATION: I certify that the transfer of the above named patient to an Extended Care Facility is necessary for the continuing treatment of the diagnosis listed. The above information is true and accurate reflection of patient's current condition. Confidential - Redisclosure prohibited without a patient's written consent.
[2016-11-09] MEDS: Insulin LISPRO 300 UNITS/3 ML VIAL SQ SCH (08:32)
[2016-11-09] MEDS: Lisinopril 20 MG TABLET PO SCH (09:44)
[2016-11-09] MEDS: Venlafaxine XR (24 HR) 75 MG CAP.ER.24H PO SCH (09:44)
[2016-11-09] MEDS: [UNRECOGNIZED DRUG - OTHER] PO SCH (09:45)
[2016-11-09] MEDS ORDERED: Aminoglycoside Consult 1 EACH MC ONE (10:48)
== END 2016-11-09 10:49 | DRG 616 ==
LOC: 3BNU 11:45 → EMEROO 11:45 → 3BNU 21:17 → SUATTDRO 11-06 17:49 → 3NENU 11-07 15:05
PROVIDERS: ADMIT Pediatrics; ATTEND Internal Medicine

== ENCOUNTER 2017-01-24 13:38 | Inpatient (IN) ==
[2017-01-24 14:33] LABS: Basophils % 0.3 %; Eosinophils # 0.1 K/mcL (0.0-0.6); Eosinophils % 1.3 %; Hematocrit 47.5 % (37.5-50.1); Hemoglobin 15.9 g/dL (12.9-16.9); Immature Granulocytes % 0.3 % (0-4); Lymphocytes % 27.7 %; Mean Corpuscular HGB Conc 33.5 g/dL (31.6-35.5); Mean Corpuscular Hemoglobin 32.9 pg (28.0-33.3); Mean Corpuscular Volume 98.1 fL (83.0-100.0); Mean Platelet Volume 10.3 fL (9.4-12.4); Monocytes # 1.4 K/mcL (0.0-1.3); Monocytes % 12.8 %; Neutrophils # 6.2 K/mcL (1.6-8.9); Platelet Count 192 K/mcL (140-400); Red Blood Count 4.84 M/mcL (4.19-5.50); Red Cell Distribution Width 14.6 % (11.5-14.5); Segmented Neutrophils % 57.6 %
[2017-01-24 14:48] LABS: Alanine Aminotransferase 27 Units/L (0-55); Albumin/Globulin Ratio 0.9 (1.1-2.2); Alkaline Phosphatase 67 Units/L (38-126); Aspartate Amino Transferase 47 Units/L (5-34); BUN/Creatinine Ratio 14 (6-26); Bilirubin,Total 2.8 mg/dL (0.2-1.2); Blood Urea Nitrogen 13 mg/dL (8-26); Calcium 9.6 mg/dL (8.6-10.8); Carbon Dioxide 30 mEq/L (19-29); Chloride 101 mEq/L (98-109); Globulin 4.4 g/dL (2.4-3.5); Glucose 116 mg/dL (70-99); Osmolality,Calculated 291 (280-300); Potassium 4.4 mEq/L (3.5-4.5); Sodium 140 mEq/L (136-145); Total Protein 8.4 g/dL (6.0-8.3); eGFR For African Americans > 60 (> 60); eGFR For Non-African Americans > 60 (> 60)
[2017-01-24] MEDS ORDERED: GI Cocktail 40 ML EACH PO ONE (14:55)
--- NOTE | 2017-01-24 15:02 | Emergency Department Note ---
Disposition Clinical Impression: Chest pain, rule out acute myocardial infarction, HIV (human immunodeficiency virus infection) Chest pain Qualifiers: Chest pain type: unspecified Qualified Code(s): R07.9 - Chest pain, unspecified Diabetes Qualifiers: Diabetes mellitus type: type 2 Diabetes mellitus complication status: with unspecified complications Diabetes mellitus terminal carman insulin use: unspecified correction insulin use status Qualified Code(s): E11.8 - Type 2 diabetes mellitus with unspecified complications Cholelithiasis Qualifiers: Cholelithiasis location: gallbladder Cholecystitis presence: without cholecystitis Biliary obstruction: without biliary obstruction Qualified Code(s) : K80.20 - Calculus of gallbladder without cholecystitis without obstruction Disposition: Admitted As Inpatient Condition: Good Time of Disposition: 17:46 Chest Pain HPI - General Chief Complaint: ED Chest Pain Stated Complaint: C/P Time Seen by Provider: 01/24/17 14:11 Source: patient Mode of arrival: wheelchair Limitations: no limitations Vital Signs Reviewed: Yes Nursing Notes Reviewed: Yes - History of Present Illness HPI Narrative: Patient is a 71-year-old male with a past medical history of an LA in 2003 presents emergency Department with chest discomfort is located in the center of his chest. He states that this happened about one hour prior to arrival and states that lasted for about 5-10 minutes. This pain began while he was sitting in the lobby of his podiatry office. He states that when the pain was happening it was achy pain without radiation and rated as about a 3 out of 10. Patient currently states that he is at 0 out of 10 for pain. Patient denies any diaphoresis, shortness of breath, nausea. Severity scale (1-10): 0 - Related Data Home Medications Medication Instructions Recorded Confirmed Atenolol [Tenormin] 50 mg PO DAILY 11/16/15 01/24/17 Glimepiride [Amaryl] 2 mg PO DAILY 11/16/15 01/24/17 Lamivudine/Zidovudine [Combivir] 1 tab PO BID 11/16/15 01/24/17 Lisinopril [Zestril] 20 mg PO DAILY 11/16/15 01/24/17 Omeprazole 20 mg PO DAILY 11/16/15 01/24/17 Venlafaxine HCl [Venlafaxine HCl 75 mg PO DAILY 11/16/15 01/24/17 ER] Nut.tx.gluc.intoler,Lac-Fr,Soy 1 can PO BID 11/05/16 01/24/17 [Glucerna] Warfarin [Coumadin] 3 mg PO SUMOWETHFR 11/05/16 01/24/17 Aspirin [Lo-Dose Aspirin EC] 81 mg PO DAILY 01/09/17 01/24/17 Ergocalciferol (VITAMIN D2) 50,000 unit PO MO 01/09/17 01/24/17 [Vitamin D2] Fluorouracil [Carac] 1 appl TP BID 01/09/17 01/24/17 Indinavir [Crixivan] 800 mg PO TID 01/09/17 01/24/17 Warfarin [Coumadin] 4 mg PO TUSA 01/09/17 01/24/17 Cephalexin [Keflex] 500 mg PO BID 01/24/17 01/24/17 Desonide [Tridesilon] 1 appl TP DAILY PRN 01/24/17 01/24/17 Previous Rx's Medication Instructions Recorded ALPRAZolam [Xanax 0.25 MG Tablet] 0.25 mg PO TID PRN #20 tablet 11/09/16 Acetaminophen [Tylenol] 650 mg PO Q6HR PRN #0 tablet 11/09/16 Allergies Allergy/AdvReac Type Severity Reaction Status Date / Time Sulfa (Sulfonamide AdvReac SEE COMMENT Verified 01/24/17 13:40 Antibiotics) All systems ED: reviewed and negative except as stated. Constitutional: Denies: fever, chills Eyes: Denies: vision change ENT ED: Denies: hearing loss Cardiovascular: Reports: chest pain Respiratory: Denies: dyspnea Gastrointestinal: Denies: abdominal pain, nausea, vomiting Genitourinary: Denies: urgency, dysuria Chest Pain PMH - Past Medical History Medical history: Reports: DVT, diabetes, GERD, HIV/AIDS, hypertension, myocardial infarction, other Surgical history: Reports: angioplasty/stent Psychiatric history: Reports: anxiety, depression - Social History Smoking Status: Never smoker Alcohol use: Reports: rarely Drug use: Reports: none Physical Exam - General Limitations: no limitations General appearance: alert, in no apparent distress - Head Head exam: atraumatic, normocephalic - Neck Neck exam: Present: normal inspection, full ROM, trachea midline - Respiratory Respiratory exam: Present: normal lung sounds bilaterally. Absent: respiratory distress, wheezes - Cardiovascular Cardiovascular exam: Present: regular rate, normal rhythm, normal heart sounds, +S1, +S2 - Abdominal Exam Abdominal exam: Present: soft, Non-Tender, normal bowel sounds - Expanded Lower Extremity Exam Foot/toe exam: Present: amputation (Third digit on the foot.), other (Healing left second digit on the left foot after hammertoe surgery). Absent: tenderness - Neurological Exam Neurological exam: Present: alert, oriented X3 - Psychiatric Psychiatric exam: Present: normal affect, normal mood - Skin Skin exam: Present: warm, dry, intact Course - Reevaluation(s) Reevaluation #1: On reevaluation of the patient he states that he is not having any chest pain at this time and feels pretty good right now. Patient is currently stable and laying in bed. Time: 16:13 Vital Signs Temperature 97.9 F 01/24/17 13:42 Pulse Rate 82 01/24/17 13:42 Respiratory Rate 20 01/24/17 13:42 Blood Pressure 115/71 01/24/17 13:42 O2 Sat by Pulse Oximetry 97 01/24/17 13:42 Temperature 97.9 F 01/24/17 13:42 Pulse Rate 81 01/24/17 15:54 Respiratory Rate 18 01/24/17 19:56 Blood Pressure 146/86 01/24/17 19:56 O2 Sat by Pulse Oximetry 95 01/24/17 15:54 Oxygen Delivery Oxygen Delivery Room Air Chest Pain - MDM Narrative Medical decision making narrative: Due the patient's past medical history and symptoms. We have ordered laboratory testing as well as EKG and imaging. The patient had elevated bilirubin and liver enzymes so we have ordered an ultrasound of the right upper quadrant. Ultrasound showed cholelithiasis without sonographic evidence of acute cholecystitis. There is no evidence of acute myocardial infarction at this time. Due the patient's past cardiac history and having chest pain patient will be admitted to the hospital. I spoke with and he is accepted the patient to his service. - Lab Data Lab results reviewed: Yes I reviewed the patient's lab results. Result diagrams: 01/24/17 14:26 01/24/17 14:26 Lab Results 01/24/17 01/24/17 01/24/17 Range/Units 14:26 14:26 14:26 WBC 10.8 (4.3-11.1) K/mcL RBC 4.84 (4.19-5.50) M/mcL Hgb 15.9 (12.9-16.9) g/dL Hct 47.5 (37.5-50.1) % MCV 98.1 (83.0-100.0) fL MCH 32.9 (28.0-33.3) pg MCHC 33.5 (31.6-35.5) g/dL RDW 14.6 H (11.5-14.5) % Plt Count 192 (140-400) K/mcL MPV 10.3 (9.4-12.4) fL Immature Gran % 0.3 (0-4) % Seg Neutrophils % 57.6 % Lymphocytes % 27.7 % Monocytes % 12.8 % Eosinophils % 1.3 % Basophils % 0.3 % Neutrophils # 6.2 (1.6-8.9) K/mcL Lymphocytes # 3.0 (0.6-4.6) K/mcL Monocytes # 1.4 H (0.0-1.3) K/mcL Eosinophils # 0.1 (0.0-0.6) K/mcL Basophils # 0.0 (0.0-0.2) K/mcL Immature Plt Fraction 6.0 (1.1-6.1) % ESR 32 H (0-10) mm/hr PT (9.4-12.1) Seconds INR APTT (26.0-36.0) Seconds Sodium 140 (136-145) mEq/L Potassium 4.4 (3.5-4.5) mEq/L Chloride 101 (98-109) mEq/L Carbon Dioxide 30 H (19-29) mEq/L BUN 13 (8-26) mg/dL Creatinine 0.92 (0.72-1.25) mg/dL Est GFR ( Amer) > 60 (> 60) Est GFR (Non-Af Amer) > 60 (> 60) BUN/Creatinine Ratio 14 (6-26) Glucose 116 H (70-99) mg/dL Calculated Osmolality 291 (280-300) Calcium 9.6 (8.6-10.8) mg/dL Total Bilirubin 2.8 H (0.2-1.2) mg/dL AST 47 H (5-34) Units/L ALT 27 (0-55) Units/L Alkaline Phosphatase 67 (38-126) Units/L Troponin I (0-0.03) ng/mL C-Reactive Protein (Less than 5) mg/L Serum Total Protein 8.4 H (6.0-8.3) g/dL Albumin 4.0 (3.5-5.0) g/dL Globulin 4.4 H (2.4-3.5) g/dL Albumin/Globulin Ratio 0.9 L (1.1-2.2) 01/24/17 01/24/17 01/24/17 Range/Units 14:26 14:26 15:14 WBC (4.3-11.1) K/mcL RBC (4.19-5.50) M/mcL Hgb (12.9-16.9) g/dL Hct (37.5-50.1) % MCV (83.0-100.0) fL MCH (28.0-33.3) pg MCHC (31.6-35.5) g/dL RDW (11.5-14.5) % Plt Count (140-400) K/mcL MPV (9.4-12.4) fL Immature Gran % (0-4) % Seg Neutrophils % % Lymphocytes % % Monocytes % % Eosinophils % % Basophils % % Neutrophils # (1.6-8.9) K/mcL Lymphocytes # (0.6-4.6) K/mcL Monocytes # (0.0-1.3) K/mcL Eosinophils # (0.0-0.6) K/mcL Basophils # (0.0-0.2) K/mcL Immature Plt Fraction (1.1-6.1) % ESR (0-10) mm/hr PT 24.8 H (9.4-12.1) Seconds INR 2.2 APTT 47.6 H (26.0-36.0) Seconds Sodium (136-145) mEq/L Potassium (3.5-4.5) mEq/L Chloride (98-109) mEq/L Carbon Dioxide (19-29) mEq/L BUN (8-26) mg/dL Creatinine (0.72-1.25) mg/dL Est GFR ( Amer) (> 60) Est GFR (Non-Af Amer) (> 60) BUN/Creatinine Ratio (6-26) Glucose (70-99) mg/dL Calculated Osmolality (280-300) Calcium (8.6-10.8) mg/dL Total Bilirubin (0.2-1.2) mg/dL AST (5-34) Units/L ALT (0-55) Units/L Alkaline Phosphatase (38-126) Units/L Troponin I 0.00 (0-0.03) ng/mL C-Reactive Protein 152 H (Less than 5) mg/L Serum Total Protein (6.0-8.3) g/dL Albumin (3.5-5.0) g/dL Globulin (2.4-3.5) g/dL Albumin/Globulin Ratio (1.1-2.2) - Radiology Data Radiology results reviewed: Yes I reviewed the patient's radiology results. Chest X-Ray 01/24/17 13:41 IMPRESSION: 1. No acute cardiopulmonary process. 2. Stable asymmetric elevation of the right diaphragm, with atelectasis and scarring at the right base. D/ / 01/24/2017 14:40:55 Dereck Rossi MD / [facility] Interpreting Provider: Dereck Rossi MD Foot X-Ray 01/24/17 13:47 IMPRESSION: Previous osteotomy at the PIP joint of the 2nd toe with mild distraction and subluxation as outlined above. Otherwise no acute osseous findings. D/ / Dereck Patton MD / Dereck Patton MD Interpreting Provider: Dereck Patton MD - EKG Data EKG attestation: Yes I reviewed and interpreted this EKG. EKG results narrative: EKG shows a sinus rhythm at a rate of 81 bpm, IA interval 193, QRS duration 14, QTC [address] changes noted in comparison to previous EKG on there are no acute changes. Critical Care Time Total Critical Care Time: 35 Attestation: Greater than 35 minutes of critical care time was spent resuscitating this acutely ill male suffering from hepatic failure with elevated transaminases and bilirubin. He will be admitted to the hospital for further evaluation. He remains in critical condition with high potential for life-threatening deterioration critical care time was excluding billable procedures Attestation Statement - Attestation Attestation: I examined this patient and my medical decision-making was reviewed with the Resident Physician. I agree with the documented findings, disposition and treatment plan as described except to the extent set forth below. 71-year-old male with a history of LA, factor V Leiden, previous cardiac catheterization requiring stent placement now with nonspecific atypical chest pain. I do feel his symptoms are concerning for possible early ACS despite his normal EKG on arrival. Plan to admit for further trending of cardiac biomarkers. Aspirin was administered. Given his findings of transaminitis and elevated bilirubin I did proceed with evaluation of the gallbladder with ultrasound. Results are pending evaluation by our radiology department. Should he have evidence of acute cholecystitis surgical services will be notified.
[2017-01-24] MEDS ORDERED: Aspirin 81 MG TAB.CHEW PO STA (15:15)
[2017-01-24 15:40] LABS: INR 2.2; Prothrombin Time 24.8 Seconds (9.4-12.1)
[2017-01-24 15:43] LABS: Activated Partial Thrombo Time 47.6 Seconds (26.0-36.0)
[2017-01-24] MEDS ORDERED: Naloxone 0.4 MG/ML INJ IVP PRN (20:29)
[2017-01-24] MEDS ORDERED: Ondansetron 4 MG/2 ML VIAL IVP PRN (20:29)
--- NOTE | 2017-01-24 21:30 | Internal Med History&Physical ---
<Kitty Ferris - Last Filed: 01/24/17 22:25> Date of Encounter: 01/24/17 Time of Encounter: 20:30 Assessment and Plan (1) Chest pain Current visit: Yes Status: Acute 1 patient experiencing intermittent chest pain nonradiating that resolved on its own. He does have a past history of ME with stent placement as well as hypertension. His first troponin was 0 we will continue to trend troponins 2 continuous cardiac monitoring 3 we will obtain cardiac echo 4 continue with aspirin, beta derick and naeem 5 Will check lipid profile in a.m. 6. After midnight cardiac stress in the morning 7 nitroglycerin as needed for chest pain 8 oxygen as needed maintain SPO2 greater than 92% Qualifiers: Chest pain type: unspecified Qualified Code(s): R07.9 - Chest pain, unspecified (2) Factor V Leiden Current visit: No Status: Chronic 1 atrial fibrillation has a history of factor V Leiden we will continue with Coumadin INR presently 2.2 pharmacy to dose (3) Hypertension Current visit: No Status: Chronic 1 presently controlled we will continue with Naeem and beta derick Qualifiers: Hypertension type: essential hypertension Qualified Code(s): I10 - Essential (primary) hypertension (4) Diabetes mellitus type II, non insulin dependent Current visit: No Status: Chronic 1 we will hold oral antidiabetic Accu-Cheks before meals at bedtime with sliding scale insulin 2 diabetic diet (5) HIV (human immunodeficiency virus infection) Current visit: No Status: Chronic 1 patient unsure of CD4 count however he states his viral load is undetectable. He has been compliant with his medications we will continue with his home medications (6) DVT prophylaxis Current visit: No Status: Acute 1 patient is on Coumadin Internal Medicine - H&P: HPI Chief complaint: CP Admitted From: Emergency Dept Plans for Post Hospital Care: Home History of present illness: Mr. Ramesh is a 71 year old male past medical history of diabetes type 2 ME with stent placement in 2003 hypertension factor V Leiden HIV hepatitis C. Patient was sitting in the lobby of his maintenance helper's office today we began to experience achy midsternal chest pain nonradiating and intermittent. Associated symptoms of lightheadedness and dizziness. The symptoms continued off and on for approximately an hour. He did tell his maintenance helper who then had patient transported to the ER for evaluation. Upon arrival to the ER patient was pain-free however he did experience 2 more episodes while in the ER. Lab work was obtained which was unremarkable troponin was 0 patient is on Coumadin for factor V Leiden INR was 2.2. Chest x-ray was negative. He was admitted for further workup and evaluation. Presently patient denies any chest pain or shortness of breath. He does not appear to be any respiratory distress. Lung sounds are clear. Heart sounds are regular S1 and S2 with no rubs clicks, murmurs noted. Abdomen soft nontender. No pedal edema noted. Patient does have a dressing to his left foot surrounding tissue with erythema, nontender to touch. Patient did have a cardiac catheter in 2003 with stent placement to LAD. He does not recall when he last had a cardiac stress test. He did have an echo and August 2015 EF at that time 55-60% with mild diastolic dysfunction. EKG sinus rhythm with some nonspecific T-wave changes. He is hemodynamically stable this time. I reviewed this case with Dr. Zaragoza who agrees with plan. Past Med Surg Social Fam HX - Past Medical History Medical history: DVT, diabetes, GERD, HIV/AIDS, hypertension, myocardial infarction, other Psychiatric history: anxiety, depression - Past Surgical History Surgical History: angioplasty/stent - Social History Smoking Status: Never smoker Smokeless Tobacco Status: No Alcohol use: rarely Drug use: none - Family History Mother Hx Family Cardiac Disorders: No Hx Family Respiratory Disorders: No Hx Family Cancer: Yes (Uterine cancer) Hx Family GI Disorders: No Hx Family Endocrine Disorder: No Hx Family Neuromuscular Disorders: No Hx Family Neurologic Disorders: No Hx Family HEENT Disorders: No Hx Family Autoimmune Disorders: No Sister Hx Family Cardiac Disorders: No Hx Family Respiratory Disorders: No Hx Family Cancer: Yes (Uterine) Hx Family GI Disorders: No Hx Family Endocrine Disorder: No Hx Family Neuromuscular Disorders: No Hx Family Neurologic Disorders: No Hx Family HEENT Disorders: No Hx Family Autoimmune Disorders: No Internal Medicine - H&P: Meds Atenolol [Tenormin] 50 mg PO DAILY 11/16/15 [History] Glimepiride [Amaryl] 2 mg PO DAILY 11/16/15 [History] Lamivudine/Zidovudine [Combivir] 1 tab PO BID 11/16/15 [History] Lisinopril [Zestril] 20 mg PO DAILY 11/16/15 [History] Omeprazole 20 mg PO DAILY 11/16/15 [History] Venlafaxine HCl [Venlafaxine HCl ER] 75 mg PO DAILY 11/16/15 [History] Nut.tx.gluc.intoler,Lac-Fr,Soy [Glucerna] 1 can PO BID 11/05/16 [History] Warfarin [Coumadin] 3 mg PO SUMOWETHFR 11/05/16 [History] ALPRAZolam [Xanax 0.25 MG Tablet] 0.25 mg PO TID PRN #20 tablet 11/09/16 [Rx] Acetaminophen [Tylenol] 650 mg PO Q6HR PRN #0 tablet 11/09/16 [Rx] Aspirin [Lo-Dose Aspirin EC] 81 mg PO DAILY 01/09/17 [History] Ergocalciferol (VITAMIN D2) [Vitamin D2] 50,000 unit PO MO 01/09/17 [History] Fluorouracil [Carac] 1 appl TP BID 01/09/17 [History] Indinavir [Crixivan] 800 mg PO TID 01/09/17 [History] Warfarin [Coumadin] 4 mg PO TUSA 01/09/17 [History] Cephalexin [Keflex] 500 mg PO BID 01/24/17 [History] Desonide [Tridesilon] 1 appl TP DAILY PRN 01/24/17 [History] Allergies Sulfa (Sulfonamide Antibiotics) Adverse Reaction (Verified 01/24/17 13:40) SEE COMMENT PATIENT FEELS LIKE SKIN IS CRAWLING All Systems PM: A 10-system review of systems was performed and is negative for pertinent findings except as documented above in the HPI. - Constitutional Constitutional: no chills, no fever(s), no night sweats - EENT Eyes: no change in vision, no discharge, no pain, no photophobia Ears: no ear discharge, no ear pain, no tinnitus Nose, mouth and throat: no dysphagia, no nasal discharge, no neck pain, no sore throat - Cardiovascular Cardiovascular ROS IM: chest pain, no diaphoresis, no dyspnea, no lightheadedness, no palpitations, no syncope - Respiratory Respiratory: no cough, no dyspnea, no wheezing, no excessive phlegm production - Gastrointestinal Gastrointestinal: no abdominal pain, no diarrhea, no hematemesis, no hematochezia, no melena, no nausea, no vomiting - Musculoskeletal Musculoskeletal ROS IM: no numbness, no tingling - Integumentary Integumentary IM: no rash, no unusual bruising - Neurological Neurological ROS: no confusion, no convulsions, no focal weakness, no numbness, no tingling, no tremor(s) - Hematologic/Lymphatic Hematologic/Lymphatic: no easy bruising - Constitutional Vitals: Temp Pulse Resp BP Pulse Ox 97.8 F 67 16 149/84 95 01/24/17 21:10 01/24/17 21:10 01/24/17 21:10 01/24/17 21:10 01/24/17 21:10 General appearance: Present: cachectic, A&O X 3, answers questions appropriately - Head Head exam: Present: atraumatic, normocephalic - Eye Eye exam: Present: PERRL, conjuntiva pink, sclera anicteric Pupils: Present: PERRL - Neck Neck exam general surgery: Present: supple, trachea midline. Absent: lymphadenopathy - Respiratory Respiratory exam: Present: CTAB. Absent: accessory muscle use, rales, rhonchi, wheezes - Cardiovascular Cardiovascular exam: Present: RRR, +S1, +S2. Absent: diastolic murmur, gallop, rubs, systolic murmur - GI/Abdominal GI/Abdominal exam: Present: normal bowel sounds, soft, no peritoneal signs. Absent: distended, tenderness - Extremities Exam Extremities exam: Present: warm, radial pulses palpable and symetrical. Absent : calf tenderness, cyanotic, pedal edema - Neurological Exam Neurological exam: Present: CN II-XII intact, oriented X3, no focal deficits. Absent: pronater drift, facial droop, speech deficit - Skin Skin exam: Present: dry, intact Internal Med - H&P Results - Labs CBC & Chem 7: 01/24/17 14:26 01/24/17 14:26 - EKG Data EKG shows normal: sinus rhythm - Diagnostic Studies Other Images Additional comments: Chest X-Ray 01/24/17 13:41 IMPRESSION: 1. No acute cardiopulmonary process. 2. Stable asymmetric elevation of the right diaphragm, with atelectasis and scarring at the right base. D/ / 01/24/2017 14:40:55 Dereck Rossi MD / hoa Interpreting Provider: Dereck Rossi MD Foot X-Ray 01/24/17 13:47 IMPRESSION: Previous osteotomy at the PIP joint of the 2nd toe with mild distraction and subluxation as outlined above. Otherwise no acute osseous findings. D/ / Dereck Patton MD / Dereck Patton MD Interpreting Provider: Dereck Patton MD Gallbladder Ultrasound 01/24/17 15:56 IMPRESSION: Cholelithiasis without sonographic evidence acute cholecystitis. D/ / Joe Newman MD / Joe Newman MD Interpreting Provider: Joe Newman MD <Hiram Zaragoza - Last Filed: 01/24/17 23:00> Date of Encounter: 01/24/17 Internal Medicine - H&P: HPI History of present illness: Mr. Ramesh is a 71 year old male All Systems PM: A 10-system review of systems was performed and is negative for pertinent findings except as documented above in the HPI. - Constitutional Vitals: Temp Pulse Resp BP Pulse Ox 98.2 F 67 18 133/77 97 01/24/17 22:27 01/24/17 22:27 01/24/17 22:27 01/24/17 22:27 01/24/17 22:27 Internal Med - H&P Results - Labs CBC & Chem 7: 01/24/17 14:26 01/24/17 14:26 Labs: Cardiac Enzymes 01/24/17 Range/Units 21:14 Troponin I 0.00 (0-0.03) ng/mL - Attending Attestation I independently obtained history and examined this patient and my medical decision-making was reviewed with the nurse practitioner, Kitty Ferris. I agree with the documented findings, disposition and treatment plan as described. My findings are summarized below: Patient presented with sudden onset mild chest pain described as pressure. He has a history of CAD status post stent to the LAD. On exam he is in no acute distress. Heart is regular, lungs are clear. Plan: Heart monitor. Trend troponin. Stress test and echocardiogram in the morning. I will consult podiatry to evaluate the left foot.
[2017-01-24] MEDS: *HR* Warfarin 3 MG TABLET PO SCH (22:57)
[2017-01-24] MEDS: cephALEXin 500 MG CAPSULE PO SCH (22:58)
[2017-01-24] MEDS: FLUOROURACIL APPL TP SCH (22:58)
[2017-01-24] MEDS: [UNRECOGNIZED DRUG - OTHER] PO SCH (22:58)
[2017-01-25] MEDS ORDERED: *HR* Dextrose 50 % in Water (Syg) 50 ML SYRINGE IVP PRN (03:17)
[2017-01-25] MEDS ORDERED: Dextrose Gel 15 GM PO PRN ×2 (03:17)
[2017-01-25] MEDS ORDERED: D5% in Water 1,000 ML IVC PRN (03:17)
[2017-01-25 03:25] LABS: Basophils % 0.3 %; Eosinophils # 0.1 K/mcL (0.0-0.6); Eosinophils % 1.7 %; Hematocrit 43.7 % (37.5-50.1); Hemoglobin 14.3 g/dL (12.9-16.9); Immature Granulocytes % 0.4 % (0-4); Immature Platelets 5.3 % (1.1-6.1); Lymphocytes # 2.6 K/mcL (0.6-4.6); Lymphocytes % 36.8 %; Mean Corpuscular HGB Conc 32.7 g/dL (31.6-35.5); Mean Corpuscular Hemoglobin 32.8 pg (28.0-33.3); Mean Corpuscular Volume 100.2 fL (83.0-100.0); Mean Platelet Volume 10.4 fL (9.4-12.4); Monocytes # 0.9 K/mcL (0.0-1.3); Monocytes % 12.2 %; Neutrophils # 3.4 K/mcL (1.6-8.9); Platelet Count 143 K/mcL (140-400); Red Blood Count 4.36 M/mcL (4.19-5.50); Red Cell Distribution Width 14.6 % (11.5-14.5); Segmented Neutrophils % 48.6 %
[2017-01-25 03:28] LABS: INR 2.3; Prothrombin Time 25.7 Seconds (9.4-12.1)
[2017-01-25 03:38] LABS: BUN/Creatinine Ratio 20 (6-26); Blood Urea Nitrogen 17 mg/dL (8-26); Calcium 9.2 mg/dL (8.6-10.8); Carbon Dioxide 30 mEq/L (19-29); Chloride 104 mEq/L (98-109); Chol/HDL Ratio 5.3 (0-4.9); Cholesterol 133 mg/dL (< 200); Glucose 130 mg/dL (70-99); HDL Cholesterol 25 mg/dL (40-59); LDL Cholesterol,Calculated 76 mg/dL (0-99); Osmolality,Calculated 297 (280-300); Phosphorous 2.5 mg/dL (2.3-4.7); Potassium 4.9 mEq/L (3.5-4.5); Sodium 142 mEq/L (136-145); Triglycerides 158 mg/dL (< 150); eGFR For African Americans > 60 (> 60); eGFR For Non-African Americans > 60 (> 60)
[2017-01-25] MEDS ORDERED: Regadenoson 0.4 MG/5 ML SYRINGE IVP ONE (06:05)
[2017-01-25] MEDS: Insulin LISPRO 300 UNITS/3 ML VIAL SQ SCH ×3 (06:09→17:32)
[2017-01-25] MEDS: Aspirin Enteric Coated 81 MG Tablet PO SCH (11:54)
[2017-01-25] MEDS: Lisinopril 20 MG TABLET PO SCH (11:54)
[2017-01-25] MEDS: Venlafaxine XR (24 HR) 75 MG CAP.ER.24H PO SCH (11:54)
[2017-01-25] MEDS: cephALEXin 500 MG CAPSULE PO SCH ×2 (11:54→20:33)
[2017-01-25] MEDS: [UNRECOGNIZED DRUG - OTHER] PO SCH ×3 (11:54→20:34)
[2017-01-25] MEDS: FLUOROURACIL APPL TP SCH ×2 (12:01→20:35)
--- NOTE | 2017-01-25 12:14 | Nuclear Medicine Stress Report ---
Regadenoson Nuclear Stress Name: Jame Ramesh Date of Study: 01/25/2017 Date: 1945 Ht: 72.0 in Medical Record#: [id number] Age: 71 Wt: 160.0 lb Gender: Male Order #: [id number] Location: [facility] Room: [facility] Supervising Provider: Jamil Davis CNP Reading Physician: Deshaun Alex MD, [facility] Ordering Physician: Dinora Willis CNP Primary Care Physician: None Stress Technologist: Kalani Sexton, RAJI Seo Expert: Anmol Guerrero Indications: Chest Pain Impression: Perfusion imaging was negative for ischemia or infarct. SDS 0 Mild inferoapical defect that improves with stress consistent with artifact Pharmacologic ECG was negative for ischemia at the level of heart rate achieved. Baseline LVH with strain pattern not markedly worsened with stress Patient had no chest pain with stress. No arrhythmias noted with stress. Gated EF = 53%. There is no evidence of TID. History: Hypertension Diabetes Prior PCI Stress Test Summary: Stress Test Type: Pharmacologic Regadenoson 0.4mg/5ml given IV Baseline Information: Initial Heart Rate: 76 Blood Pressure: 142/80 Stress Information: Test Terminated Due to (primary): As per protocol Maximum Blood Pressure: 128/74 Maximum Heart Rate: 98 Percent Maximum Heart Rate Achieved: 66 Double Product: [id number] METS Reached: 1 Symptoms: No chest symptoms Nuclear Summary: SPECT myocardial perfusion imaging using Tc99m Sestamibi given intravenously was performed at rest and following cardiac stress testing. The resting images were obtained following initial dose of 11.7 mCi. Following stress an additional dose of 33.3 mCi was given at peak exercise or 30 seconds post regadenoson infusion. Medication Given: Time Medication Dose Units Route Findings: Stress Note * Resting ECG demonstrated normal sinus rhythm with LVH * No baseline arrhythmias were noted. * Pharmacologic stress ECG is non diagnostic for ischemia due to failure to reach target heartrate. * No chest pain or arrhythmias during stress. Hemodynamic responses * The patient demonstrated a hypotensive blood pressure response. Study Quality * Study quality is average. Gated EF % * Gated EF = 53%. Left Ventricle * The left ventricle is not dilated. NORMALS * Normal wall motion. * All other segmental perfusion normal in stress. * All other segmental perfusion normal in rest. TID * There is transient ischemic dilatation. Inferior Perfusion Rest * The apical inferior segment shows a mild reduction in perfusion. Inferior Perfusion Stress * The apical inferior segment shows a mild reduction in perfusion. Updated by Deshaun Alex MD, FACC on 01/25/2017 12:07:28 PM electronically signed on 01/25/2017 12:09:22 PM with status of Final
--- NOTE | 2017-01-25 17:24 | Internal Med Progress Note ---
Date of Encounter: 01/25/17 Time of Encounter: 09:00 - Assessment and plan (1) Diastolic CHF Current Visit: Yes Status: Acute Assessment and plan: Echo shows diastolic dysfunction. No signs of exacerbation. Appears euvolemic. Qualifiers: Congestive heart failure chronicity: chronic Qualified Code(s): I50.32 - Chronic diastolic (congestive) heart failure (2) Factor V Leiden Current Visit: No Status: Chronic Assessment and plan: Patient is chronically on Coumadin. Continue Coumadin. INR is therapeutic. (3) Hypertension Current Visit: No Status: Chronic Assessment and plan: Continue home medications. Monitor blood pressure. Qualifiers: Hypertension type: essential hypertension Qualified Code(s): I10 - Essential (primary) hypertension (4) Diabetes mellitus type II, non insulin dependent Current Visit: No Status: Chronic Assessment and plan: Cover patient with sliding scale. (5) DVT prophylaxis Current Visit: No Status: Acute Assessment and plan: Patient is on Coumadin. (6) Chest pain Current Visit: Yes Status: Acute Assessment and plan: Chest the patient has resolved. Patient has a history of CAD S/P stent. Nuclear stress test and negative. 3 sets of troponin negative. - We will continue aspirin, beta derick - Closely Monitor patient. Qualifiers: Chest pain type: precordial pain Qualified Code(s): R07.2 - Precordial pain (7) HIV (human immunodeficiency virus infection) Current Visit: Yes Status: Acute Assessment and plan: Continue home medications. Patient follow-up with PCP as outpatient. (8) Cholelithiasis Current Visit: Yes Status: Acute Assessment and plan: No abdominal pain. US SHOWS NO SIGNS OF CHOLECYSTITIS. Qualifiers: Cholelithiasis location: gallbladder Cholecystitis presence: without cholecystitis Biliary obstruction: without biliary obstruction Qualified Code(s): K80.20 - Calculus of gallbladder without cholecystitis without obstruction (9) Left foot infection Current Visit: Yes Status: Acute Assessment and plan: Patient has a history of diabetic foot infection. Had recent foot surgery. Signs of infection right now. - Podiatry consult appreciated. Recommend IV antibiotic. - Old culture results reviewed together with podiatry Dr. Farris. IV vancomycin started. - Patient has no systemic symptoms like fever or white count at this point. Patient is at high risk because he is on vancomycin, need close monitoring. - Time Spent With Patient Greater than 35 minutes - Subjective Interval history: Patient is a 71-year-old male admitted for intermittent chest pain which happened in podiatry clinic. Patient also has left-sided foot surgery, with infection. Past medical history is significant for diabetes, hypertension, factor V Leinden on Coumadin. Patient was seen and examined. He denies chest pain today. No shortness of breath. Vitals are stable. Stress test negative for ischemia. Echo shows diastolic dysfunction. Patient has left the foot surgery with signs of infection. Podiatry consult appreciated, recommend start IV antibiotic. - Constitutional Vitals: Temp Pulse Resp BP Pulse Ox 98.2 F 70 16 149/80 94 01/25/17 15:28 01/25/17 15:28 01/25/17 15:28 01/25/17 15:28 01/25/17 15:28 General appearance: Present: cachectic, A&O X 3, answers questions appropriately - Head Head exam: Present: atraumatic, normocephalic - Eye Eye exam: Present: PERRL, conjuntiva pink, sclera anicteric Pupils: Present: PERRL - Neck Neck exam general surgery: Present: supple, trachea midline. Absent: lymphadenopathy - Respiratory Respiratory exam: Present: CTAB. Absent: accessory muscle use, rales, rhonchi, wheezes - Cardiovascular Cardiovascular exam: Present: RRR, +S1, +S2. Absent: diastolic murmur, gallop, rubs, systolic murmur - GI/Abdominal GI/Abdominal exam: Present: normal bowel sounds, soft, no peritoneal signs. Absent: distended, tenderness - Extremities Exam Extremities exam: Present: warm, radial pulses palpable and symetrical. Absent : calf tenderness, cyanotic, pedal edema Additional comments: Left foot S/P surgery, dressed. - Neurological Exam Neurological exam: Present: CN II-XII intact, oriented X3, no focal deficits. Absent: pronater drift, facial droop, speech deficit - Skin Skin exam: Present: dry, intact Internal Medicine: Result - Labs CBC & Chem 7: 01/25/17 02:54 01/25/17 02:54 Labs: Short CBC 01/25/17 Range/Units 02:54 WBC 7.0 (4.3-11.1) K/mcL Hgb 14.3 D (12.9-16.9) g/dL Hct 43.7 (37.5-50.1) % Plt Count 143 (140-400) K/mcL Neutrophils # 3.4 (1.6-8.9) K/mcL BMP 01/25/17 02:54 Sodium 142 Potassium 4.9 H Chloride 104 Carbon Dioxide 30 H BUN 17 Creatinine 0.87 Glucose 130 H Calcium 9.2 Cardiac Enzymes 01/24/17 01/25/17 01/25/17 Range/Units 21:14 02:54 09:12 Troponin I 0.00 0.00 0.02 (0-0.03) ng/mL - ABG Interpretation ABG results: PT/INR, D-dimer PT 25.7 Seconds (9.4-12.1) H 01/25/17 02:54 Consult Discharge Plan - Plan
[2017-01-25] MEDS ORDERED: *HR* Warfarin 4 MG TABLET PO SCH (18:00)
[2017-01-25] MEDS ORDERED: Warfarin perPT PO PRN (18:00)
[2017-01-25] MEDS ORDERED: Vancomycin 1,000 MG in D5% in Water 250 ML IVPB SCH (18:00)
[2017-01-25] MEDS: Vancomycin 1,000 MG in D5% in Water 250 ML IVPB SCH (20:05)
[2017-01-26] MEDS: Insulin LISPRO 300 UNITS/3 ML VIAL SQ SCH ×4 (00:16→20:42)
[2017-01-26 05:38] LABS: Basophils % 0.3 %; Eosinophils # 0.2 K/mcL (0.0-0.6); Eosinophils % 2.4 %; Hematocrit 43.9 % (37.5-50.1); Hemoglobin 14.4 g/dL (12.9-16.9); Immature Granulocytes % 0.3 % (0-4); Lymphocytes # 2.4 K/mcL (0.6-4.6); Lymphocytes % 33.1 %; Mean Corpuscular HGB Conc 32.8 g/dL (31.6-35.5); Mean Corpuscular Hemoglobin 32.7 pg (28.0-33.3); Mean Corpuscular Volume 99.8 fL (83.0-100.0); Mean Platelet Volume 10.7 fL (9.4-12.4); Monocytes # 0.8 K/mcL (0.0-1.3); Monocytes % 10.8 %; Neutrophils # 3.8 K/mcL (1.6-8.9); Platelet Count 146 K/mcL (140-400); Red Cell Distribution Width 14.4 % (11.5-14.5); Segmented Neutrophils % 53.1 %
[2017-01-26 05:41] LABS: Prothrombin Time 21.9 Seconds (9.4-12.1)
[2017-01-26 05:49] LABS: BUN/Creatinine Ratio 18 (6-26); Blood Urea Nitrogen 14 mg/dL (8-26); Calcium 9.3 mg/dL (8.6-10.8); Carbon Dioxide 27 mEq/L (19-29); Chloride 104 mEq/L (98-109); Glucose 78 mg/dL (70-99); Osmolality,Calculated 283 (280-300); Sodium 137 mEq/L (136-145); eGFR For African Americans > 60 (> 60); eGFR For Non-African Americans > 60 (> 60)
[2017-01-26] MEDS: Vancomycin 1,000 MG in D5% in Water 250 ML IVPB SCH ×2 (06:04→17:49)
[2017-01-26] MEDS ORDERED: ALPRAZolam 0.25 MG TABLET PO PRN (08:16)
[2017-01-26] MEDS: Venlafaxine XR (24 HR) 75 MG CAP.ER.24H PO SCH (10:12)
[2017-01-26] MEDS: Lisinopril 20 MG TABLET PO SCH (10:12)
[2017-01-26] MEDS: Aspirin Enteric Coated 81 MG Tablet PO SCH (10:12)
[2017-01-26] MEDS: cephALEXin 500 MG CAPSULE PO SCH ×2 (10:12→20:36)
[2017-01-26] MEDS: FLUOROURACIL APPL TP SCH ×2 (10:13→20:38)
[2017-01-26] MEDS: [UNRECOGNIZED DRUG - OTHER] PO SCH ×3 (10:13→20:37)
--- NOTE | 2017-01-26 16:08 | Internal Med Progress Note ---
Date of Encounter: 01/26/17 Time of Encounter: 10:00 - Assessment and plan (1) Diastolic CHF Current Visit: Yes Status: Acute Assessment and plan: Echo shows diastolic dysfunction. No signs of exacerbation. Appears euvolemic. Qualifiers: Congestive heart failure chronicity: chronic Qualified Code(s): I50.32 - Chronic diastolic (congestive) heart failure (2) Factor V Leiden Current Visit: No Status: Chronic Assessment and plan: Patient is chronically on Coumadin. Continue Coumadin. INR is therapeutic. (3) Hypertension Current Visit: No Status: Chronic Assessment and plan: Continue home medications. Monitor blood pressure. Qualifiers: Hypertension type: essential hypertension Qualified Code(s): I10 - Essential (primary) hypertension (4) Diabetes mellitus type II, non insulin dependent Current Visit: No Status: Chronic Assessment and plan: Cover patient with sliding scale. (5) DVT prophylaxis Current Visit: No Status: Acute Assessment and plan: Patient is on Coumadin. (6) Chest pain Current Visit: Yes Status: Acute Assessment and plan: Chest pain has resolved. Patient has a history of CAD S/P stent. Nuclear stress test and negative. 3 sets of troponin negative. - We will continue aspirin, beta derick - Closely Monitor patient. Qualifiers: Chest pain type: precordial pain Qualified Code(s): R07.2 - Precordial pain (7) HIV (human immunodeficiency virus infection) Current Visit: Yes Status: Acute Assessment and plan: Continue home medications. Patient follow-up with PCP as outpatient. HIV virus undetectable, CD4 count 1169, on 07/16/16 (8) Cholelithiasis Current Visit: Yes Status: Acute Assessment and plan: No abdominal pain. US SHOWS NO SIGNS OF CHOLECYSTITIS. Qualifiers: Cholelithiasis location: gallbladder Cholecystitis presence: without cholecystitis Biliary obstruction: without biliary obstruction Qualified Code(s): K80.20 - Calculus of gallbladder without cholecystitis without obstruction (9) Left foot infection Current Visit: Yes Status: Acute Assessment and plan: Patient has a history of diabetic foot infection. Had recent foot surgery. Signs of infection right now. - Podiatry consult appreciated. Recommend IV antibiotic. - IV vancomycin started. - Patient has no systemic symptoms like fever or white count at this point. Patient is at high risk because he is on vancomycin, need close monitoring. - Time Spent With Patient Greater than 35 minutes - Subjective Interval history: Patient is a 71-year-old male admitted for intermittent chest pain which happened in podiatry clinic. Patient also has left-sided foot surgery, with infection. Past medical history is significant for diabetes, hypertension, factor V Leinden on Coumadin. Patient was seen and examined. He denies further chest pain today. No shortness of breath. Vitals are stable. Patient has left the foot surgery with signs of infection. Podiatry consult on case, cont IV antibiotic. - Constitutional Vitals: Temp Pulse Resp BP Pulse Ox 98.4 F 78 20 140/85 94 01/26/17 15:19 01/26/17 15:19 01/26/17 15:19 01/26/17 15:19 01/26/17 11:33 General appearance: Present: cachectic, A&O X 3, answers questions appropriately - Head Head exam: Present: atraumatic, normocephalic - Eye Eye exam: Present: PERRL, conjuntiva pink, sclera anicteric Pupils: Present: PERRL - Neck Neck exam general surgery: Present: supple, trachea midline. Absent: lymphadenopathy - Respiratory Respiratory exam: Present: CTAB. Absent: accessory muscle use, rales, rhonchi, wheezes - Cardiovascular Cardiovascular exam: Present: RRR, +S1, +S2. Absent: diastolic murmur, gallop, rubs, systolic murmur - GI/Abdominal GI/Abdominal exam: Present: normal bowel sounds, soft, no peritoneal signs. Absent: distended, tenderness - Extremities Exam Extremities exam: Present: warm, radial pulses palpable and symetrical. Absent : calf tenderness, cyanotic, pedal edema Additional comments: Left foot wound, well dressed. - Neurological Exam Neurological exam: Present: CN II-XII intact, oriented X3, no focal deficits. Absent: pronater drift, facial droop, speech deficit - Skin Skin exam: Present: dry, intact Internal Medicine: Result - Labs CBC & Chem 7: 01/26/17 04:33 01/26/17 04:33 Labs: Short CBC 01/26/17 Range/Units 04:33 WBC 7.1 (4.3-11.1) K/mcL Hgb 14.4 (12.9-16.9) g/dL Hct 43.9 (37.5-50.1) % Plt Count 146 (140-400) K/mcL Neutrophils # 3.8 (1.6-8.9) K/mcL BMP 01/26/17 04:33 Sodium 137 Potassium 5.0 H Chloride 104 Carbon Dioxide 27 BUN 14 Creatinine 0.79 Glucose 78 Calcium 9.3 - ABG Interpretation ABG results: PT/INR, D-dimer PT 21.9 Seconds (9.4-12.1) H 01/26/17 04:33 Consult Discharge Plan - Plan Referrals: Jun Shah MD [Primary Care Provider] -
[2017-01-26] MEDS: *HR* Warfarin 3 MG TABLET PO SCH (17:49)
--- NOTE | 2017-01-26 18:01 | Electrocardiograph Report ---
[address] [address] Test Date: 2017-01-24 Pat Name: Jame Ramesh Department: 102 Room: 3B45 Gender: M [employer]: : 1945 Requested By: Bert Tejada Order Number: [id number] Reading MD: Deshaun Alex MD Measurements Intervals [place] Rate: 81 P: -1 NC: 193 QRS: -16 QRSD: 104 T: 66 QT: 363 QTc: 400 Interpretive Statements SINUS RHYTHM VOLTAGE CRITERIA FOR LVH Electronically Signed On 01-26-2017 17:59:30 EDT by Deshaun Alex MD
--- NOTE | 2017-01-26 21:20 | Podiatry Consult Note ---
Date of Encounter: 01/25/17 Time of Encounter: 21:18 Assessment and Plan (1) Cellulitis Current visit: No Status: Acute At this time due to the fact that there is a pin maintaining the stability of his toe and would be beneficial to receive antibiotics intravenously until the erythema resolves. The patient may require a prison after his discharge due to the fact that he has been unable to care for himself at home. At this time surgery can be avoided and we will try intravenous antibiotics and monitor the site. We will leave the pin intact as it is maintaining the structure of the toe and consider removal only if it looks infected at the site of the pin. Currently the tip of the toe appears to be free of infection and there is no purulence noted. Due to the elevated ESR and CRP will continue monitoring the site. The patient needs to minimize weightbearing and will have daily dressing changes. Qualifiers: Site of cellulitis: extremity Site of cellulitis of extremity: toe Laterality: left Qualified Code(s): L03.032 - Cellulitis of left toe History of Present Illness Chief complaint: Toe infection HPI: Mr. Ramesh is a 71 year old male who recently had hammertoe surgery. The patient relates slightly increased redness since the time of surgery. Patient relates concerned about going home and inability to care for himself. Patient states that he got his dressings wet while showering. Patient relates that after that he shower 2 more times with no dressings on his foot. Patient states that he thinks that is why he has the infection. Patient denies any fever and just relates swelling in his foot. Past Med Surg Social Fam HX - Past Medical History Medical history: DVT, diabetes, GERD, HIV/AIDS, hypertension, myocardial infarction, other Psychiatric history: anxiety, depression - Past Surgical History Surgical History: angioplasty/stent - Social History Smoking Status: Never smoker Smokeless Tobacco Status: No Alcohol use: rarely Drug use: none - Family History Mother History Unknown: Yes Hx Family Cardiac Disorders: No Hx Family Respiratory Disorders: No Hx Family Cancer: Yes (Uterine cancer) Hx Family GI Disorders: No Hx Family Endocrine Disorder: No Hx Family Neuromuscular Disorders: No Hx Family Neurologic Disorders: No Hx Family HEENT Disorders: No Hx Family Autoimmune Disorders: No Sister History Unknown: Yes Hx Family Cardiac Disorders: No Hx Family Respiratory Disorders: No Hx Family Cancer: Yes (Uterine) Hx Family GI Disorders: No Hx Family Endocrine Disorder: No Hx Family Neuromuscular Disorders: No Hx Family Neurologic Disorders: No Hx Family HEENT Disorders: No Hx Family Autoimmune Disorders: No Medications and Allergies Atenolol [Tenormin] 50 mg PO DAILY 11/16/15 [History] Glimepiride [Amaryl] 2 mg PO DAILY 11/16/15 [History] Lamivudine/Zidovudine [Combivir] 1 tab PO BID 11/16/15 [History] Lisinopril [Zestril] 20 mg PO DAILY 11/16/15 [History] Omeprazole 20 mg PO DAILY 11/16/15 [History] Venlafaxine HCl [Venlafaxine HCl ER] 75 mg PO DAILY 11/16/15 [History] Nut.tx.gluc.intoler,Lac-Fr,Soy [Glucerna] 1 can PO BID 11/05/16 [History] Warfarin [Coumadin] 3 mg PO SUMOWETHFR 11/05/16 [History] ALPRAZolam [Xanax 0.25 MG Tablet] 0.25 mg PO TID PRN #20 tablet 11/09/16 [Rx] Acetaminophen [Tylenol] 650 mg PO Q6HR PRN #0 tablet 11/09/16 [Rx] Aspirin [Lo-Dose Aspirin EC] 81 mg PO DAILY 01/09/17 [History] Ergocalciferol (VITAMIN D2) [Vitamin D2] 50,000 unit PO MO 01/09/17 [History] Fluorouracil [Carac] 1 appl TP BID 01/09/17 [History] Indinavir [Crixivan] 800 mg PO TID 01/09/17 [History] Warfarin [Coumadin] 4 mg PO TUSA 01/09/17 [History] Cephalexin [Keflex] 500 mg PO BID 01/24/17 [History] Desonide [Tridesilon] 1 appl TP DAILY PRN 01/24/17 [History] Allergies Sulfa (Sulfonamide Antibiotics) Adverse Reaction (Verified 01/24/17 13:40) SEE COMMENT PATIENT FEELS LIKE SKIN IS CRAWLING All Systems Reviewed: A 10-system review of systems was performed and is negative for pertinent findings except as documented above in the HPI. Physical Exam - Constitutional Vitals: Temp Pulse Resp BP Pulse Ox 98.7 F 80 16 155/73 97 01/26/17 18:47 01/26/17 18:47 01/26/17 18:47 01/26/17 18:47 01/26/17 20:48 Exam: No purulence noted from the pin site. There is minimal erythema near the site of the pin in the second digit. The majority of the erythema is at the base of the digit and near the second metatarsal on the dorsal aspect of the foot. There is slight warmth noted. No purulence or palpable abscess noted. Pedal pulses palpable. Capillary fill time intact to the digits. Sensation slightly decreased to light touch. ESR and CRP are elevated. White blood cell count within normal range. Results - Labs Result Diagrams: 01/26/17 04:33 01/26/17 04:33 Labs: Abnormal lab results ESR 32 mm/hr (0-10) H 01/24/17 14:26 PT 21.9 Seconds (9.4-12.1) H 01/26/17 04:33 APTT 47.6 Seconds (26.0-36.0) H 01/24/17 15:14 Potassium 5.0 mEq/L (3.5-4.5) H 01/26/17 04:33 POC Glucose 140 (58-89) H 01/26/17 16:21 Total Bilirubin 2.8 mg/dL (0.2-1.2) H 01/24/17 14:26 AST 47 Units/L (5-34) H 01/24/17 14:26 C-Reactive Protein 152 mg/L (Less than 5) H 01/24/17 14:26 Serum Total Protein 8.4 g/dL (6.0-8.3) H 01/24/17 14:26 Globulin 4.4 g/dL (2.4-3.5) H 01/24/17 14:26 Albumin/Globulin Ratio 0.9 (1.1-2.2) L 01/24/17 14:26 Triglycerides 158 mg/dL (< 150) H 01/25/17 02:54 VLDL Cholesterol, Calc 32 mg/dL (< 31) H 01/25/17 02:54 HDL Cholesterol 25 mg/dL (40-59) L 01/25/17 02:54 Cholesterol/HDL Ratio 5.3 (0-4.9) H 01/25/17 02:54 H & H 01/26/17 Range/Units 04:33 Hgb 14.4 (12.9-16.9) g/dL Hct 43.9 (37.5-50.1) % All other labs normal. Consult Discharge Plan - Plan Referrals: Jun Shah MD [Primary Care Provider] -
--- NOTE | 2017-01-26 21:25 | Podiatry Progress Note ---
Date of Encounter: 01/26/17 Time of Encounter: 15:24 - Assessment and Plan (1) Cellulitis Current Visit: No Status: Acute At this time due to the fact that there is a pin maintaining the stability of his toe and would be beneficial to receive antibiotics intravenously until the erythema resolves. The patient may require a retirement after his discharge due to the fact that he has been unable to care for himself at home. At this time surgery can be avoided and we will try intravenous antibiotics and monitor the site. We will leave the pin intact as it is maintaining the structure of the toe and consider removal only if it looks infected at the site of the pin. Currently the tip of the toe appears to be free of infection and there is no purulence noted. Due to the elevated ESR and CRP will continue monitoring the site. The patient needs to minimize weightbearing and will have daily dressing changes. Qualifiers: Site of cellulitis: extremity Site of cellulitis of extremity: toe Laterality: left Qualified Code(s): L03.032 - Cellulitis of left toe Subjective Principal diagnosis: Infection toe Interval history: Patient relates very little improvement. Patient states that it does not seem to be getting worse. Patient denies any new symptoms. Objective - Vital Signs Vital Signs: Vital Signs Temp Pulse Resp BP Pulse Ox 01/26/17 20:48 97 01/26/17 18:47 98.7 F 80 16 155/73 97 01/26/17 15:19 98.4 F 78 20 140/85 01/26/17 11:33 97.9 F 85 16 115/69 94 01/26/17 07:16 98.2 F 85 16 184/97 96 01/26/17 03:25 98.1 F 78 16 139/87 97 01/25/17 23:22 98.0 F 69 15 142/83 96 Intake and Output 01/26/17 01/26/17 01/26/17 07:59 15:59 23:59 Intake Total 250 / 250 420 / 420 Balance 250 / 250 420 / 420 Intake: IV Fluids 250 / 250 Vancocin 1,000 MG In 250 / 250 Dextrose 5% 250 ML @ 167 mls/hr IVPB Q12HR [facility] Rx# :[id number] Oral 420 / 420 Other: Meal Lunch Percent of Meal Consumed 100% Weight 70.307 kg Blood Glucose* 116 164 184 Patient Weight 01/26/17 23:59 Weight 70.307 kg - Exam Exam: Pedal pulses palpable. Capillary fill time intact to the digits. No increased erythema. Minimal decrease in erythema since yesterday. No palpable fluctuance or abscess. Sensation decreased to light touch. The patient can actively dorsiflex and plantarflex his ankles bilaterally. - Lab Result Diagrams: 01/26/17 04:33 01/26/17 04:33 Labs: Abnormal lab results ESR 32 mm/hr (0-10) H 01/24/17 14:26 PT 21.9 Seconds (9.4-12.1) H 01/26/17 04:33 APTT 47.6 Seconds (26.0-36.0) H 01/24/17 15:14 Potassium 5.0 mEq/L (3.5-4.5) H 01/26/17 04:33 POC Glucose 140 (58-89) H 01/26/17 16:21 Total Bilirubin 2.8 mg/dL (0.2-1.2) H 01/24/17 14:26 AST 47 Units/L (5-34) H 01/24/17 14:26 C-Reactive Protein 152 mg/L (Less than 5) H 01/24/17 14:26 Serum Total Protein 8.4 g/dL (6.0-8.3) H 01/24/17 14:26 Globulin 4.4 g/dL (2.4-3.5) H 01/24/17 14:26 Albumin/Globulin Ratio 0.9 (1.1-2.2) L 01/24/17 14:26 Triglycerides 158 mg/dL (< 150) H 01/25/17 02:54 VLDL Cholesterol, Calc 32 mg/dL (< 31) H 01/25/17 02:54 HDL Cholesterol 25 mg/dL (40-59) L 01/25/17 02:54 Cholesterol/HDL Ratio 5.3 (0-4.9) H 01/25/17 02:54 Consult Discharge Plan - Plan Referrals: Jun Shah MD [Primary Care Provider] -
[2017-01-27 04:56] LABS: Basophils % 0.1 %; Eosinophils # 0.1 K/mcL (0.0-0.6); Hemoglobin 14.8 g/dL (12.9-16.9); Immature Granulocytes % 0.3 % (0-4); Lymphocytes % 27.5 %; Mean Corpuscular HGB Conc 34.4 g/dL (31.6-35.5); Mean Corpuscular Hemoglobin 33.3 pg (28.0-33.3); Mean Corpuscular Volume 96.8 fL (83.0-100.0); Mean Platelet Volume 10.3 fL (9.4-12.4); Monocytes # 0.9 K/mcL (0.0-1.3); Monocytes % 12.7 %; Neutrophils # 4.1 K/mcL (1.6-8.9); Platelet Count 167 K/mcL (140-400); Red Blood Count 4.44 M/mcL (4.19-5.50); Segmented Neutrophils % 57.4 %
[2017-01-27 04:58] LABS: Prothrombin Time 21.6 Seconds (9.4-12.1)
[2017-01-27 05:10] LABS: BUN/Creatinine Ratio 18 (6-26); Blood Urea Nitrogen 15 mg/dL (8-26); Calcium 9.5 mg/dL (8.6-10.8); Carbon Dioxide 27 mEq/L (19-29); Chloride 102 mEq/L (98-109); Glucose 112 mg/dL (70-99); Osmolality,Calculated 284 (280-300); Potassium 4.6 mEq/L (3.5-4.5); Sodium 136 mEq/L (136-145); eGFR For African Americans > 60 (> 60); eGFR For Non-African Americans > 60 (> 60)
[2017-01-27] MEDS: Vancomycin 1,250 MG in D5% in Water 250 ML IVPB SCH ×2 (05:54→19:09)
[2017-01-27] MEDS: cephALEXin 500 MG CAPSULE PO SCH ×2 (08:03→20:51)
[2017-01-27] MEDS: Venlafaxine XR (24 HR) 75 MG CAP.ER.24H PO SCH (08:03)
[2017-01-27] MEDS: Insulin LISPRO 300 UNITS/3 ML VIAL SQ SCH ×4 (08:03→20:50)
[2017-01-27] MEDS: Lisinopril 20 MG TABLET PO SCH (08:04)
[2017-01-27] MEDS: FLUOROURACIL APPL TP SCH ×2 (08:04→20:51)
[2017-01-27] MEDS: Aspirin Enteric Coated 81 MG Tablet PO SCH (08:04)
[2017-01-27] MEDS: [UNRECOGNIZED DRUG - OTHER] PO SCH ×3 (08:04→20:51)
--- NOTE | 2017-01-27 17:08 | Podiatry Progress Note ---
Date of Encounter: 01/27/17 Time of Encounter: 16:30 - Assessment and Plan (1) Diabetes mellitus type II, non insulin dependent Current Visit: No Status: Chronic (2) Cellulitis Current Visit: No Status: Acute S/p excision of ulceration, correct hammertoe #[address] Lehman on . Decreased erythema and swelling to left foot. WBC: 7.1 a febrile. Currently on IV Vancomycin from previous wound cultures that isolated Staph Aureus, Group C Strep, and Enterococcus faecalis. Recommend switching to oral Clindamycin and Ampicillin. Continue wound care as ordered. Patient to continue use of post op shoe while out of bed. Patient will need to f/u in Podiatry clinic with in 7 days of discharge from the hospital. Qualifiers: Site of cellulitis: extremity Site of cellulitis of extremity: toe Laterality: left Qualified Code(s): L03.032 - Cellulitis of left toe (3) HIV (human immunodeficiency virus infection) Current Visit: Yes Status: Acute Subjective Principal diagnosis: Infection toe Interval history: Patient is status post excision of ulceration, correct hammertoe #[address] Lehman on 01/09/17. Patient is lying in bed with dressing intact to left foot, moderate amount of drainage observed to dressing. Patient was started on IV Vancomycin from previous wound cultures that isolated Staph Aureus, Group C Strep, and Enterococcus faecalis. No complaints of pain, no fever, no chills, no nausea. Objective - Exam Exam: General appearance: alert, awake, oriented X 3, calm and pleasant. . Vascular: Pedal pulses + 1/4 DP/PT. No evidence of cyanosis, pallor or rubor. Edema graded at 1+/4. Skin Temperature warm to warm from toes to tibia. Capillary refill time is immediate to digits.. Neurologic: Sensation intact with light touch to left foot. . Musculoskeletal: Muscle strength 5/5 and equal bilaterally. s/p amputation of distal phalanx toe #3 left foot. . Postop Exam: S/P sutures intact to incision line with k-wire intact, periwound erythema from the base of the 2nd toe and 3rd proximal phalanx ascending to the forefoot , no streaking. Toe is globally edematous with moderate amount of serous drainage observed to dressing. No no ascending cellulitis, no pus, no odor. . - Lab Result Diagrams: 01/27/17 04:31 01/27/17 04:31 Labs: Abnormal lab results ESR 32 mm/hr (0-10) H 01/24/17 14:26 PT 21.6 Seconds (9.4-12.1) H 01/27/17 04:31 APTT 47.6 Seconds (26.0-36.0) H 01/24/17 15:14 Potassium 4.6 mEq/L (3.5-4.5) H 01/27/17 04:31 Glucose 112 mg/dL (70-99) H 01/27/17 04:31 POC Glucose 184 (58-89) H 01/26/17 19:33 Total Bilirubin 2.8 mg/dL (0.2-1.2) H 01/24/17 14:26 AST 47 Units/L (5-34) H 01/24/17 14:26 C-Reactive Protein 152 mg/L (Less than 5) H 01/24/17 14:26 Serum Total Protein 8.4 g/dL (6.0-8.3) H 01/24/17 14:26 Globulin 4.4 g/dL (2.4-3.5) H 01/24/17 14:26 Albumin/Globulin Ratio 0.9 (1.1-2.2) L 01/24/17 14:26 Triglycerides 158 mg/dL (< 150) H 01/25/17 02:54 VLDL Cholesterol, Calc 32 mg/dL (< 31) H 01/25/17 02:54 HDL Cholesterol 25 mg/dL (40-59) L 01/25/17 02:54 Cholesterol/HDL Ratio 5.3 (0-4.9) H 01/25/17 02:54 Vancomycin Trough 9.2 mcg/mL (10-20) L 01/27/17 04:31 Consult Discharge Plan - Plan Referrals: Jun Shah MD [Primary Care Provider] -
--- NOTE | 2017-01-27 18:54 | Internal Med Progress Note ---
Date of Encounter: 01/27/17 Time of Encounter: 10:00 - Assessment and plan (1) Diastolic CHF Current Visit: Yes Status: Acute Assessment and plan: Echo shows diastolic dysfunction. No signs of exacerbation. Appears euvolemic. Qualifiers: Congestive heart failure chronicity: chronic Qualified Code(s): I50.32 - Chronic diastolic (congestive) heart failure (2) Factor V Leiden Current Visit: No Status: Chronic Assessment and plan: Patient is chronically on Coumadin. Continue Coumadin. INR is therapeutic. (3) Hypertension Current Visit: No Status: Chronic Assessment and plan: Continue home medications. Monitor blood pressure. Qualifiers: Hypertension type: essential hypertension Qualified Code(s): I10 - Essential (primary) hypertension (4) Diabetes mellitus type II, non insulin dependent Current Visit: No Status: Chronic Assessment and plan: Cover patient with sliding scale. (5) DVT prophylaxis Current Visit: No Status: Acute Assessment and plan: Patient is on Coumadin. (6) Chest pain Current Visit: Yes Status: Acute Assessment and plan: Chest pain has resolved. Patient has a history of CAD S/P stent. Nuclear stress test and negative. 3 sets of troponin negative. - We will continue aspirin, beta derick - Closely Monitor patient. Qualifiers: Chest pain type: precordial pain Qualified Code(s): R07.2 - Precordial pain (7) HIV (human immunodeficiency virus infection) Current Visit: Yes Status: Acute Assessment and plan: Continue home medications. Patient follow-up with PCP as outpatient. HIV virus undetectable, CD4 count 1169, on 07/16/16 (8) Cholelithiasis Current Visit: Yes Status: Acute Assessment and plan: No abdominal pain. US SHOWS NO SIGNS OF CHOLECYSTITIS. Qualifiers: Cholelithiasis location: gallbladder Cholecystitis presence: without cholecystitis Biliary obstruction: without biliary obstruction Qualified Code(s): K80.20 - Calculus of gallbladder without cholecystitis without obstruction (9) Left foot infection Current Visit: Yes Status: Acute Assessment and plan: Patient has a history of diabetic foot infection. Had recent foot surgery. Signs of infection right now. - Podiatry consult appreciated. - IV vancomycin started. will switch to po per podiatry recommendation. - Patient has no systemic symptoms like fever or white count at this point. - Time Spent With Patient 25 - 35 minutes - Subjective Interval history: Patient is a 71-year-old male admitted for intermittent chest pain which happened in podiatry clinic. Patient also has left-sided foot surgery, with infection. Past medical history is significant for diabetes, hypertension, factor V Leinden on Coumadin. Patient was seen and examined. He denies further chest pain today. No shortness of breath. Vitals are stable. Patient has left the foot surgery with signs of infection. Podiatry consult on case, cont antibiotic. - Constitutional Vitals: Temp Pulse Resp BP Pulse Ox 98.6 F 74 15 136/77 97 01/27/17 16:02 01/27/17 16:02 01/27/17 16:02 01/27/17 16:02 01/27/17 16:02 General appearance: Present: cachectic, A&O X 3, answers questions appropriately - Head Head exam: Present: atraumatic, normocephalic - Eye Eye exam: Present: PERRL, conjuntiva pink, sclera anicteric Pupils: Present: PERRL - Neck Neck exam general surgery: Present: supple, trachea midline. Absent: lymphadenopathy - Respiratory Respiratory exam: Present: CTAB. Absent: accessory muscle use, rales, rhonchi, wheezes - Cardiovascular Cardiovascular exam: Present: RRR, +S1, +S2. Absent: diastolic murmur, gallop, rubs, systolic murmur - GI/Abdominal GI/Abdominal exam: Present: normal bowel sounds, soft, no peritoneal signs. Absent: distended, tenderness - Extremities Exam Extremities exam: Present: warm, radial pulses palpable and symetrical. Absent : calf tenderness, cyanotic, pedal edema Additional comments: Left foot s/p surgery, well dressed - Neurological Exam Neurological exam: Present: CN II-XII intact, oriented X3, no focal deficits. Absent: pronater drift, facial droop, speech deficit - Skin Skin exam: Present: dry, intact Internal Medicine: Result - Labs CBC & Chem 7: 01/27/17 04:31 01/27/17 04:31 - ABG Interpretation ABG results: PT/INR, D-dimer PT 21.6 Seconds (9.4-12.1) H 01/27/17 04:31 Consult Discharge Plan - Plan Referrals: Jun Shah MD [Primary Care Provider] -
[2017-01-27] MEDS: *HR* Warfarin 3 MG TABLET PO SCH (19:09)
[2017-01-28 04:36] LABS: INR 1.6; Prothrombin Time 17.4 Seconds (9.4-12.1)
[2017-01-28] MEDS: Vancomycin 1,250 MG in D5% in Water 250 ML IVPB SCH (06:10)
[2017-01-28] MEDS: Insulin LISPRO 300 UNITS/3 ML VIAL SQ SCH ×2 (09:58→12:51)
[2017-01-28] MEDS: Aspirin Enteric Coated 81 MG Tablet PO SCH (10:47)
[2017-01-28] MEDS: Venlafaxine XR (24 HR) 75 MG CAP.ER.24H PO SCH (10:47)
[2017-01-28] MEDS: cephALEXin 500 MG CAPSULE PO SCH (10:47)
[2017-01-28] MEDS: Lisinopril 20 MG TABLET PO SCH (10:47)
[2017-01-28] MEDS: FLUOROURACIL APPL TP SCH (10:48)
[2017-01-28] MEDS: [UNRECOGNIZED DRUG - OTHER] PO SCH ×2 (12:51→16:07)
--- NOTE | 2017-01-28 12:54 | Podiatry Progress Note ---
Date of Encounter: 01/28/17 Time of Encounter: 12:00 - Assessment and Plan (1) Diabetes mellitus type II, non insulin dependent Current Visit: No Status: Chronic (2) HIV (human immunodeficiency virus infection) Current Visit: No Status: Chronic (3) Cellulitis Current Visit: No Status: Acute 01/27/17 S/p excision of ulceration, correct hammertoe #[address] Lehman on . Decreased erythema and swelling to left foot. WBC: 7.1 a febrile. Currently on IV Vancomycin from previous wound cultures that isolated Staph Aureus, Group C Strep, and Enterococcus faecalis. Recommend switching to oral Clindamycin and Ampicillin. Continue wound care as ordered. Patient to continue use of post op shoe while out of bed. Patient will need to f/u in Podiatry clinic with in 7 days of discharge from the hospital 01/28/17 Dressing of surgical incision removed at bedside Cleansed with saline and alcohol All sutures removed at bedside. Patient tolerated well. Scant amount of bleeding which was self limited Adaptic, 4x4 and kerlex was applied at bedside Pin remains and will remain until patient is reevaluated per Patient states there is a possibility that he will go home today Patient to go home with post op shoe he arrived with, wear at all times, limit weight bearing as much as possible Patient already has scheduled appointment for the 4th with , patient may leave dressing intact until this time Antibiotic coverage recommendations as listed above, patient will need PO coverage at home Patient to call with any fevers, chills, n/v, flu like symptoms or worsening in appearance of foot Qualifiers: Site of cellulitis: extremity Site of cellulitis of extremity: toe Laterality: left Qualified Code(s): L03.032 - Cellulitis of left toe Subjective Principal diagnosis: Infection toe Interval history: Patient is status post excision of ulceration, correct hammertoe #[address] Lehman on 01/09/17. Patient sleeping on arrival. Dressing is intact at this time. There is no noted drainage. Patient was started on IV Vancomycin from previous wound cultures that isolated Staph Aureus, Group C Strep, and Enterococcus faecalis. No complaints of pain, no fever, no chills, no nausea. Patient states he has been up with assistance to ambulate, states he is tolerating this well. Patient states he believes he may go home today. Objective - Vital Signs Vital Signs: Vital Signs Temp Pulse Resp BP Pulse Ox 01/28/17 10:52 97.5 F L 78 15 122/66 93 01/28/17 07:22 97.8 F 66 15 142/86 95 01/28/17 03:41 97.7 F 85 16 128/75 99 01/27/17 23:11 97.8 F 78 16 140/78 92 01/27/17 20:40 98.9 F 72 16 119/43 97 Intake and Output 01/27/17 01/28/17 01/28/17 23:59 07:59 15:59 Intake Total 250 / 250 360 / 360 Balance 250 / 250 360 / 360 Intake: IV Fluids 250 / 250 Vancocin 1,250 MG In 250 / 250 Dextrose 5% 250 ML @ 166. 667 mls/hr IVPB Q12H [facility] Rx#:[id number] Oral 360 / 360 Other: Meal Breakfast Percent of Meal Consumed 100% Weight 74.843 kg Blood Glucose* 168 127 209 Patient Weight 01/28/17 23:59 Weight 74.843 kg - Exam Exam: Patient is awake alert and oriented Pulses are palpable DP/PT Cap refill time is <3 seconds Sensation intact to moderate touch Movement of toes intact There is good alignment of surgical toe and surgical amputation of toe #3 left foot There is a pin to toe as well as sutures. There is dried serous drainage to incision line Area of cellulitis was marked to monitor, there has been a slight regression of erythema and a marked decrease in edema. There is no warmth or drainage noted to toe at this time. There is no odor Sutures to surgical line were removed without incidence. Sutures were embedded due to dried drainage of foot, this was softened with alcohol and removed gently as to not damage underlying skin. Patient tolerated well No calf pain with palpation - Lab Result Diagrams: 01/27/17 04:31 01/27/17 04:31 Labs: Abnormal lab results ESR 32 mm/hr (0-10) H 01/24/17 14:26 PT 17.4 Seconds (9.4-12.1) H 01/28/17 03:36 APTT 47.6 Seconds (26.0-36.0) H 01/24/17 15:14 Potassium 4.6 mEq/L (3.5-4.5) H 01/27/17 04:31 Glucose 112 mg/dL (70-99) H 01/27/17 04:31 POC Glucose 168 (58-89) H 01/27/17 20:39 Total Bilirubin 2.8 mg/dL (0.2-1.2) H 01/24/17 14:26 AST 47 Units/L (5-34) H 01/24/17 14:26 C-Reactive Protein 152 mg/L (Less than 5) H 01/24/17 14:26 Serum Total Protein 8.4 g/dL (6.0-8.3) H 01/24/17 14:26 Globulin 4.4 g/dL (2.4-3.5) H 01/24/17 14:26 Albumin/Globulin Ratio 0.9 (1.1-2.2) L 01/24/17 14:26 Triglycerides 158 mg/dL (< 150) H 01/25/17 02:54 VLDL Cholesterol, Calc 32 mg/dL (< 31) H 01/25/17 02:54 HDL Cholesterol 25 mg/dL (40-59) L 01/25/17 02:54 Cholesterol/HDL Ratio 5.3 (0-4.9) H 01/25/17 02:54 Vancomycin Trough 9.2 mcg/mL (10-20) L 01/27/17 04:31 Consult Discharge Plan - Plan Referrals: Jun Shah MD [Primary Care Provider] -
[2017-01-28 15:41] VITALS: BP 124/72
--- NOTE | 2017-01-28 16:16 | Discharge Summary ---
Date of Encounter: 01/28/17 Time of Encounter: 16:09 - Discharge Diagnosis (1) Left foot infection Priority: Primary Status: Acute (2) Chest pain, rule out acute myocardial infarction Priority: Primary Status: Acute (3) Factor V Leiden Priority: Secondary Status: Chronic (4) Hypertension Priority: Secondary Status: Chronic Qualifiers: Hypertension type: essential hypertension Qualified Code(s): I10 - Essential (primary) hypertension (5) Diabetes mellitus type II, non insulin dependent Priority: Secondary Status: Chronic (6) HIV (human immunodeficiency virus infection) Priority: Secondary Status: Acute - Discharge Medications Prescriptions: Ampicillin Trihydrate 500 mg PO TID #21 capsule Clindamycin HCl 300 mg PO TID #21 capsule Saccharomyces Boulardii [Florastor] 250 mg PO TID #21 capsule Home Medications: Atenolol [Tenormin] 50 mg PO DAILY 11/16/15 [History] Glimepiride [Amaryl] 2 mg PO DAILY 11/16/15 [History] Lamivudine/Zidovudine [Combivir] 1 tab PO BID 11/16/15 [History] Lisinopril [Zestril] 20 mg PO DAILY 11/16/15 [History] Omeprazole 20 mg PO DAILY 11/16/15 [History] Venlafaxine HCl [Venlafaxine HCl ER] 75 mg PO DAILY 11/16/15 [History] Nut.tx.gluc.intoler,Lac-Fr,Soy [Glucerna] 1 can PO BID 11/05/16 [History] Warfarin [Coumadin] 3 mg PO SUMOWETHFR 11/05/16 [History] ALPRAZolam [Xanax 0.25 MG Tablet] 0.25 mg PO TID PRN #20 tablet 11/09/16 [Rx] Acetaminophen [Tylenol] 650 mg PO Q6HR PRN #0 tablet 11/09/16 [Rx] Aspirin [Lo-Dose Aspirin EC] 81 mg PO DAILY 01/09/17 [History] Ergocalciferol (VITAMIN D2) [Vitamin D2] 50,000 unit PO MO 01/09/17 [History] Fluorouracil [Carac] 1 appl TP BID 01/09/17 [History] Indinavir [Crixivan] 800 mg PO TID 01/09/17 [History] Warfarin [Coumadin] 4 mg PO TUSA 01/09/17 [History] Desonide [Tridesilon] 1 appl TP DAILY PRN 01/24/17 [History] Ampicillin Trihydrate 500 mg PO TID #21 capsule 01/28/17 [Rx] Clindamycin HCl 300 mg PO TID #21 capsule 01/28/17 [Rx] Saccharomyces Boulardii [Florastor] 250 mg PO TID #21 capsule 01/28/17 [Rx] Allergies/Adverse Reactions: Allergies Sulfa (Sulfonamide Antibiotics) Adverse Reaction (Verified 01/24/17 13:40) SEE COMMENT PATIENT FEELS LIKE SKIN IS CRAWLING Date of admission: 01/27/17 16:54 Primary care physician: Jun Shah MD Consults: 01/27/17 19:04 Consult to Occupational Therapy [CONS] Routine Comment: Evaluate, develop and implement POC Reason for Consult: weakness Consult to Physical Therapy [CONS] Routine Comment: Evaluate, develop and implement POC Reason for Consult: weakness - Patient Status Disposition: Home, Self-Care Condition: Good - Discharge Instructions Follow Up With: Jun Shah MD [Primary Care Provider] - Rajat Hager [Non-Partnered Physician] - 01/31/17 3:15 pm Forms: ED Satisfaction Letter - Diet and Activity Activity: increase activity as tolerated Diet: advance to your usual diet Hospital course: Mr. Ramesh is a 71 year old male with known PMH of HTN, HLD, DM2, HIV who has s /o excision of left foot ulcer correct hammertoe left foot by Dr. Lehman on 01/09 he went to see him in his office on 01/24/2017 pt developed chest pain. So pt was sent to our and got admitted here for CP evaluation. Pt was placed on burial vault maker, we checked his serial troponin x 3 which were negative. However given his high risk factors pt went for cardiac stress test y/d, which came back as negative for any ischemia. Regarding his Left foot infection we consulted rapier insertion loom fixer who assessed the and cleared him to d/c home with PO Clindamycin and Ampicillin and f/u with them on Friday. Pt wound cx from growing MSSA, Group G strep, and Enteroccus fecalis susceptible for Clindamycin and Ampicillin. - Time Spent with Patient Total time spent providing and/or coordinating discharge services: - Constitutional Vitals: Temp Pulse Resp BP Pulse Ox 98.4 F 67 16 124/72 93 01/28/17 15:40 01/28/17 15:40 01/28/17 15:40 01/28/17 15:40 01/28/17 15:40 General appearance: Present: cachectic, A&O X 3, answers questions appropriately - Head Head exam: Present: atraumatic, normal inspection - Respiratory Respiratory exam: Present: decreased breath sounds. Absent: respiratory distress, rhonchi, stridor, wheezes - Cardiovascular Cardiovascular exam: Present: RRR, +S1, +S2. Absent: diastolic murmur, gallop, rubs, systolic murmur - Extremities Exam Additional comments: improving erythema and swelling over left ankle and left 2nd and 3rd toe. Clean incsion noticed over left 2nd toe dorsally - Neurological Exam Neurological exam: Present: alert, oriented X3 - Psychiatric Psychiatric exam: Present: normal affect, normal mood
[2017-01-28] MEDS ORDERED: Aminoglycoside Consult 1 EACH MC ONE (17:03)
[2017-01-28] MEDS ORDERED: *HR* Warfarin 2 MG TABLET PO ONE (18:00)
== END 2017-01-28 17:04 | disposition home or self-care (01) | DRG 313 ==
LOC: 3BNU 13:38 → EMEROO 13:38 → SUATTDRO 17:39 → 3BNU 20:03
PROVIDERS: ADMIT Family Medicine; ATTEND Internal Medicine

== ENCOUNTER 2019-03-22 05:43 | Observation (INO) ==
--- NOTE | 2019-03-22 06:22 | Emergency Department Note ---
Disposition Clinical Impression: Tachycardia Dyspnea Qualifiers: Dyspnea type: unspecified Qualified Code(s): R06.00 - Dyspnea, unspecified Disposition: Still a Patient Referrals: Jun Shah MD [Partnered Physician] - Forms: ED Satisfaction Letter Time of Disposition: 07:23 General Adult HPI - General Chief complaint: ED Shortness of Breath/Dyspnea Stated complaint: sob Time Seen by Provider: 03/22/19 05:43 Source: patient Mode of arrival: private vehicle Limitations: no limitations Nursing Notes Reviewed: Yes Vital Signs Reviewed: Yes - History of Present Illness HPI Narrative: 73M with Pmhx of HIV+, Factor V Leiden on warfarin, HTN, DM, that reports developing SOB on Friday and has been unable to lie flat since this started. He has a dry cough, but no fevers/chills and no chest pain. He is on MYERS for his HIV status and states that his disease levels are undetectable. Otherwise healthy and has not been in the hospital since 2016. No hx of afib. Pain Scale: 0 - Related Data Home Medications Medication Instructions Recorded Confirmed Atenolol [Tenormin] 50 mg PO DAILY 11/16/15 01/24/17 Glimepiride [Amaryl] 2 mg PO DAILY 11/16/15 01/24/17 Lamivudine/Zidovudine [Combivir] 1 tab PO BID 11/16/15 01/24/17 Lisinopril [Zestril] 20 mg PO DAILY 11/16/15 01/24/17 Omeprazole 20 mg PO DAILY 11/16/15 01/24/17 Venlafaxine HCl [Venlafaxine HCl 75 mg PO DAILY 11/16/15 01/24/17 ER] Nut.tx.gluc.intoler,Lac-Fr,Soy 1 can PO BID 11/05/16 01/24/17 [Glucerna] Warfarin [Coumadin] 3 mg PO SUMOWETHFR 11/05/16 01/24/17 Aspirin [Lo-Dose Aspirin EC] 81 mg PO DAILY 01/09/17 01/24/17 Ergocalciferol (VITAMIN D2) 50,000 unit PO MO 01/09/17 01/24/17 [Vitamin D2] Fluorouracil [Carac] 1 appl TP BID 01/09/17 01/24/17 Indinavir [Crixivan] 800 mg PO TID 01/09/17 01/24/17 Warfarin [Coumadin] 4 mg PO TUSA 01/09/17 01/24/17 Desonide [Tridesilon] 1 appl TP DAILY PRN 01/24/17 01/24/17 Previous Rx's Medication Instructions Recorded ALPRAZolam [Xanax 0.25 MG Tablet] 0.25 mg PO TID PRN #20 tablet 11/09/16 Acetaminophen [Tylenol] 650 mg PO Q6HR PRN #0 tablet 11/09/16 Ampicillin Trihydrate 500 mg PO TID #21 capsule 01/28/17 Clindamycin HCl 300 mg PO TID #21 capsule 01/28/17 Saccharomyces Boulardii [Florastor] 250 mg PO TID #21 capsule 01/28/17 Allergies Allergy/AdvReac Type Severity Reaction Status Date / Time Sulfa (Sulfonamide AdvReac SEE COMMENT Verified 03/22/19 05:43 Antibiotics) Review of Systems: In addition to that documented in the HPI above, the additional ROS was obtained: Constitutional: Denies fevers or chills Eyes: Denies vision changes ENMT: Denies sore throat CV: Denies chest pain Resp: Reports SOB GI: Denies vomiting or diarrhea : Denies painful urination MSK: Denies recent trauma Skin: Denies new rashes Neuro: Denies new numbness or tingling or weakness Endocrine: Denies unexpected weight loss Heme: Denies bleeding disorders Past Medical History - Past Medical History Attestation: Yes The following information was validated with the patient. Medical history: Reports: DVT, diabetes, GERD, HIV/AIDS, hypertension, myocardial infarction, other Surgical history: Reports: angioplasty/stent Psychiatric history: Reports: anxiety, depression - Social History Smoking Status: Never smoker Smokeless Tobacco Status: No Alcohol use: Reports: rarely Drug use: Reports: none Physical Exam General: A&O x 3. No acute distress. Cachetic. Head: atraumatic, normocephalic. ENT: No conjunctival injection, no scleral icterus. PERRLA. EOMI. Oropharynx non- erythematous. mucous membranes moist. Neuro: No focal deficits, no speech deficit, no facial droop, mentating well. BUE/BLE Str 5/5. Pulm: Bibasilar mild crackles, clear otherwise. Cardio: Tachycardia without m/r/g. Chest not tender to palpation. Abd: Soft, non-distended. Normoactive bowel sounds. Non-tender to palpation. Extremities: Radial pulses 2+ abigail, dorsalis pedis/posterior tibialis 2+ abigail. No LE edema. No cyanosis, clubbing. Skin: warm, dry, intact. No rashes. Psych: Appropriate mood and affect. Answers questions appropriately. Cooperative with exam. - General Limitations: no limitations General appearance: alert Course Vital Signs Temperature 97.3 F L 03/22/19 05:43 Pulse Rate 142 03/22/19 05:43 Respiratory Rate 16 03/22/19 05:43 Blood Pressure 134/92 03/22/19 05:43 O2 Sat by Pulse Oximetry 97 03/22/19 05:43 Temperature 97.3 F L 03/22/19 05:43 Pulse Rate 136 03/22/19 06:40 Respiratory Rate 14 03/22/19 06:40 Blood Pressure 114/97 03/22/19 06:40 O2 Sat by Pulse Oximetry 95 03/22/19 06:40 Oxygen Delivery Oxygen Delivery Room Air Medical Decision Making - MDM Narrative Medical decision making narrative: 73M with Pmhx of HIV+, HTN, Factor V Leiden, DM, that has been SOB since Friday and presents with tachycardia in 130's. Will administer 5mg metoprolol Q5 x 3 or until HR <100 or BP becomes unstable. After two doses of metoprolol, pt's BP was 104/88. Will administer NS bolus and then recommend cardiazem to day team. Pt was signed out to Dr. Joe Berry, Resident, and Dr. Derek Mejias, Attending. Please see their notes for full results of the workup and disposition. - Medical Records Medical records reviewed: Yes I reviewed the patient's medical records. - Lab Data Lab results reviewed: Yes I reviewed the patient's lab results. Result diagrams: 03/22/19 06:10 03/22/19 06:10 Lab Results 03/22/19 03/22/19 03/22/19 Range/Units 06:10 06:10 06:10 WBC 7.9 (4.3-11.1) K/mcL RBC 4.09 L (4.19-5.50) M/mcL Hgb 14.9 (12.9-16.9) g/dL Hct 43.2 (37.5-50.1) % MCV 105.6 H (83.0-100.0) fL MCH 36.4 H (28.0-33.3) pg MCHC 34.5 (31.6-35.5) g/dL RDW 14.0 (11.5-14.5) % Plt Count 172 (140-400) K/mcL MPV 10.5 (9.4-12.4) fL Immature Gran % 0.4 (0-4) % Seg Neutrophils % 46.1 % Lymphocytes % 42.7 % Monocytes % 8.5 % Eosinophils % 2.0 % Basophils % 0.3 % Neutrophils # 3.6 (1.6-8.9) K/mcL Lymphocytes # 3.4 (0.6-4.6) K/mcL Monocytes # 0.7 (0.0-1.3) K/mcL Eosinophils # 0.2 (0.0-0.6) K/mcL Basophils # 0.0 (0.0-0.2) K/mcL PT 34.0 H (9.4-12.1) Seconds INR 3.0 APTT 49.7 H (26.0-36.0) Seconds Sodium (136-145) mEq/L Potassium (3.5-5.1) mEq/L Chloride (98-107) mEq/L Carbon Dioxide (23-29) mEq/L BUN (8-23) mg/dL Creatinine (0.70-1.30) mg/dL Est GFR ( Amer) (> 60) Est GFR (Non-Af Amer) (> 60) BUN/Creatinine Ratio (6-26) Glucose (70-105) mg/dL Calculated Osmolality (280-300) Calcium (8.6-10.3) mg/dL Total Bilirubin (0.3-1.0) mg/dL Direct Bilirubin (0.0-0.2) mg/dL Indirect Bilirubin (0.0-1.2) mg/dL AST (13-39) Units/L ALT (7-52) Units/L Alkaline Phosphatase (34-104) Units/L Troponin I (< 0.04) ng/mL B-Natriuretic Peptide 246 H (Less than 100) pg/mL Serum Total Protein (6.4-8.9) g/dL Albumin (3.5-5.7) g/dL Globulin (2.4-3.5) g/dL Albumin/Globulin Ratio (1.1-2.2) Lipase (11-82) Units/L 03/22/ Range/Units 06:10 WBC (4.3-11.1) K/mcL RBC (4.19-5.50) M/mcL Hgb (12.9-16.9) g/dL Hct (37.5-50.1) % MCV (83.0-100.0) fL MCH (28.0-33.3) pg MCHC (31.6-35.5) g/dL RDW (11.5-14.5) % Plt Count (140-400) K/mcL MPV (9.4-12.4) fL Immature Gran % (0-4) % Seg Neutrophils % % Lymphocytes % % Monocytes % % Eosinophils % % Basophils % % Neutrophils # (1.6-8.9) K/mcL Lymphocytes # (0.6-4.6) K/mcL Monocytes # (0.0-1.3) K/mcL Eosinophils # (0.0-0.6) K/mcL Basophils # (0.0-0.2) K/mcL PT (9.4-12.1) Seconds INR APTT (26.0-36.0) Seconds Sodium 136 (136-145) mEq/L Potassium 3.8 (3.5-5.1) mEq/L Chloride 100 (98-107) mEq/L Carbon Dioxide 27 (23-29) mEq/L BUN 13 (8-23) mg/dL Creatinine 0.81 (0.70-1.30) mg/dL Est GFR ( Amer) > 60 (> 60) Est GFR (Non-Af Amer) > 60 (> 60) BUN/Creatinine Ratio 16 (6-26) Glucose 104 (70-105) mg/dL Calculated Osmolality 282 (280-300) Calcium 9.3 (8.6-10.3) mg/dL Total Bilirubin 2.5 H (0.3-1.0) mg/dL Direct Bilirubin 0.6 H (0.0-0.2) mg/dL Indirect Bilirubin 1.9 H (0.0-1.2) mg/dL AST 40 H (13-39) Units/L ALT 25 (7-52) Units/L Alkaline Phosphatase 61 (34-104) Units/L Troponin I < 0.03 (< 0.04) ng/mL B-Natriuretic Peptide (Less than 100) pg/mL Serum Total Protein 7.1 (6.4-8.9) g/dL Albumin 4.3 (3.5-5.7) g/dL Globulin 2.8 (2.4-3.5) g/dL Albumin/Globulin Ratio 1.5 (1.1-2.2) Lipase 5 L (11-82) Units/L - Radiology Data Radiology results reviewed: Yes I reviewed the patient's radiology results. Chest X-Ray 03/22/19 06:30 IMPRESSION: 1. Bibasilar bandlike densities, favored to be atelectasis. 2. Chronic elevation of the right hemidiaphragm. 3. Stable mild enlargement of the cardiac silhouette. D/ / Steve Inman MD / Steve Inman MD Interpreting Provider: Steve Inman MD - EKG Data EKG #1 EKG attestation: Yes I reviewed and interpreted this EKG. EKG results narrative: HT 137, rhythm sinus tachycardia, axis left. [place] 107 and shortened, QRS 120 and borderline prolonged, QTc 455. ST depression in leads V5 and V6 without ST elevation. Previous EKG dated 01/24/2017 shows sinus rhythm with criteria for LVH.
[2019-03-22 06:25] LABS: Basophils % 0.3 %; Eosinophils # 0.2 K/mcL (0.0-0.6); Hematocrit 43.2 % (37.5-50.1); Hemoglobin 14.9 g/dL (12.9-16.9); Immature Granulocytes % 0.4 % (0-4); Lymphocytes # 3.4 K/mcL (0.6-4.6); Lymphocytes % 42.7 %; Mean Corpuscular HGB Conc 34.5 g/dL (31.6-35.5); Mean Corpuscular Hemoglobin 36.4 pg (28.0-33.3); Mean Corpuscular Volume 105.6 fL (83.0-100.0); Mean Platelet Volume 10.5 fL (9.4-12.4); Monocytes # 0.7 K/mcL (0.0-1.3); Monocytes % 8.5 %; Neutrophils # 3.6 K/mcL (1.6-8.9); Platelet Count 172 K/mcL (140-400); Red Blood Count 4.09 M/mcL (4.19-5.50); Segmented Neutrophils % 46.1 %; White Blood Count 7.9 K/mcL (4.3-11.1)
[2019-03-22] MEDS: *HR* Metoprolol 5 MG/5 ML VIAL IVP PRN ×2 (06:35→06:41)
[2019-03-22 06:36] LABS: Activated Partial Thrombo Time 49.7 Seconds (26.0-36.0)
[2019-03-22] MEDS ORDERED: Aspirin 325 MG TABLET PO ONE (06:42)
[2019-03-22 06:46] LABS: Alanine Aminotransferase 25 Units/L (7-52); Albumin 4.3 g/dL (3.5-5.7); Albumin/Globulin Ratio 1.5 (1.1-2.2); Alkaline Phosphatase 61 Units/L (34-104); Aspartate Amino Transferase 40 Units/L (13-39); BUN/Creatinine Ratio 16 (6-26); Bilirubin,Direct 0.6 mg/dL (0.0-0.2); Bilirubin,Indirect 1.9 mg/dL (0.0-1.2); Bilirubin,Total 2.5 mg/dL (0.3-1.0); Blood Urea Nitrogen 13 mg/dL (8-23); Calcium 9.3 mg/dL (8.6-10.3); Carbon Dioxide 27 mEq/L (23-29); Chloride 100 mEq/L (98-107); Globulin 2.8 g/dL (2.4-3.5); Glucose 104 mg/dL (70-105); Lipase 5 Units/L (11-82); Osmolality,Calculated 282 (280-300); Potassium 3.8 mEq/L (3.5-5.1); Sodium 136 mEq/L (136-145); Total Protein 7.1 g/dL (6.4-8.9); Troponin I < 0.03 ng/mL (< 0.04); eGFR For African Americans > 60 (> 60); eGFR For Non-African Americans > 60 (> 60)
[2019-03-22] MEDS ORDERED: 0.9 % Sodium Chloride 1,000 ML IVC ONE (06:46)
--- NOTE | 2019-03-22 06:56 | Emergency Department Note ---
Disposition Clinical Impression: Tachycardia Dyspnea Qualifiers: Dyspnea type: unspecified Qualified Code(s): R06.00 - Dyspnea, unspecified Disposition: Still a Patient Forms: ED Satisfaction Letter Time of Disposition: 06:58 General Adult HPI - General Chief complaint: ED Shortness of Breath/Dyspnea Stated complaint: sob Time Seen by Provider: 03/22/19 05:43 Source: patient Mode of arrival: private vehicle Limitations: no limitations - History of Present Illness Pain Scale: 0 - Related Data Home Medications Medication Instructions Recorded Confirmed Atenolol [Tenormin] 50 mg PO DAILY 11/16/15 01/24/17 Glimepiride [Amaryl] 2 mg PO DAILY 11/16/15 01/24/17 Lamivudine/Zidovudine [Combivir] 1 tab PO BID 11/16/15 01/24/17 Lisinopril [Zestril] 20 mg PO DAILY 11/16/15 01/24/17 Omeprazole 20 mg PO DAILY 11/16/15 01/24/17 Venlafaxine HCl [Venlafaxine HCl 75 mg PO DAILY 11/16/15 01/24/17 ER] Nut.tx.gluc.intoler,Lac-Fr,Soy 1 can PO BID 11/05/16 01/24/17 [Glucerna] Warfarin [Coumadin] 3 mg PO SUMOWETHFR 11/05/16 01/24/17 Aspirin [Lo-Dose Aspirin EC] 81 mg PO DAILY 01/09/17 01/24/17 Ergocalciferol (VITAMIN D2) 50,000 unit PO MO 01/09/17 01/24/17 [Vitamin D2] Fluorouracil [Carac] 1 appl TP BID 01/09/17 01/24/17 Indinavir [Crixivan] 800 mg PO TID 01/09/17 01/24/17 Warfarin [Coumadin] 4 mg PO TUSA 01/09/17 01/24/17 Desonide [Tridesilon] 1 appl TP DAILY PRN 01/24/17 01/24/17 Previous Rx's Medication Instructions Recorded ALPRAZolam [Xanax 0.25 MG Tablet] 0.25 mg PO TID PRN #20 tablet 11/09/16 Acetaminophen [Tylenol] 650 mg PO Q6HR PRN #0 tablet 11/09/16 Ampicillin Trihydrate 500 mg PO TID #21 capsule 01/28/17 Clindamycin HCl 300 mg PO TID #21 capsule 01/28/17 Saccharomyces Boulardii [Florastor] 250 mg PO TID #21 capsule 01/28/17 Allergies Allergy/AdvReac Type Severity Reaction Status Date / Time Sulfa (Sulfonamide AdvReac SEE COMMENT Verified 03/22/19 05:43 Antibiotics) Past Medical History - Past Medical History Medical history: Reports: DVT, diabetes, GERD, HIV/AIDS, hypertension, myocardial infarction, other Surgical history: Reports: angioplasty/stent Psychiatric history: Reports: anxiety, depression - Social History Smoking Status: Never smoker Smokeless Tobacco Status: No Alcohol use: Reports: rarely Drug use: Reports: none Physical Exam - General Limitations: no limitations General appearance: alert Course Vital Signs Temperature 97.3 F L 03/22/19 05:43 Pulse Rate 142 03/22/19 05:43 Respiratory Rate 16 03/22/19 05:43 Blood Pressure 134/92 03/22/19 05:43 O2 Sat by Pulse Oximetry 97 03/22/19 05:43 Temperature 97.3 F L 03/22/19 05:43 Pulse Rate 136 03/22/19 06:40 Respiratory Rate 14 03/22/19 06:40 Blood Pressure 114/97 03/22/19 06:40 O2 Sat by Pulse Oximetry 95 03/22/19 06:40 Oxygen Delivery Oxygen Delivery Room Air Medical Decision Making - Lab Data Result diagrams: 03/22/19 06:10 03/22/19 06:10 Lab Results 03/22/19 03/22/19 03/22/19 Range/Units 06:10 06:10 06:10 WBC 7.9 (4.3-11.1) K/mcL RBC 4.09 L (4.19-5.50) M/mcL Hgb 14.9 (12.9-16.9) g/dL Hct 43.2 (37.5-50.1) % MCV 105.6 H (83.0-100.0) fL MCH 36.4 H (28.0-33.3) pg MCHC 34.5 (31.6-35.5) g/dL RDW 14.0 (11.5-14.5) % Plt Count 172 (140-400) K/mcL MPV 10.5 (9.4-12.4) fL Immature Gran % 0.4 (0-4) % Seg Neutrophils % 46.1 % Lymphocytes % 42.7 % Monocytes % 8.5 % Eosinophils % 2.0 % Basophils % 0.3 % Neutrophils # 3.6 (1.6-8.9) K/mcL Lymphocytes # 3.4 (0.6-4.6) K/mcL Monocytes # 0.7 (0.0-1.3) K/mcL Eosinophils # 0.2 (0.0-0.6) K/mcL Basophils # 0.0 (0.0-0.2) K/mcL PT 34.0 H (9.4-12.1) Seconds INR 3.0 APTT 49.7 H (26.0-36.0) Seconds Sodium (136-145) mEq/L Potassium (3.5-5.1) mEq/L Chloride (98-107) mEq/L Carbon Dioxide (23-29) mEq/L BUN (8-23) mg/dL Creatinine (0.70-1.30) mg/dL Est GFR ( Amer) (> 60) Est GFR (Non-Af Amer) (> 60) BUN/Creatinine Ratio (6-26) Glucose (70-105) mg/dL Calculated Osmolality (280-300) Calcium (8.6-10.3) mg/dL Total Bilirubin (0.3-1.0) mg/dL Direct Bilirubin (0.0-0.2) mg/dL Indirect Bilirubin (0.0-1.2) mg/dL AST (13-39) Units/L ALT (7-52) Units/L Alkaline Phosphatase (34-104) Units/L Troponin I (< 0.04) ng/mL B-Natriuretic Peptide 246 H (Less than 100) pg/mL Serum Total Protein (6.4-8.9) g/dL Albumin (3.5-5.7) g/dL Globulin (2.4-3.5) g/dL Albumin/Globulin Ratio (1.1-2.2) Lipase (11-82) Units/L 03/22/19 Range/Units 06:10 WBC (4.3-11.1) K/mcL RBC (4.19-5.50) M/mcL Hgb (12.9-16.9) g/dL Hct (37.5-50.1) % MCV (83.0-100.0) fL MCH (28.0-33.3) pg MCHC (31.6-35.5) g/dL RDW (11.5-14.5) % Plt Count (140-400) K/mcL MPV (9.4-12.4) fL Immature Gran % (0-4) % Seg Neutrophils % % Lymphocytes % % Monocytes % % Eosinophils % % Basophils % % Neutrophils # (1.6-8.9) K/mcL Lymphocytes # (0.6-4.6) K/mcL Monocytes # (0.0-1.3) K/mcL Eosinophils # (0.0-0.6) K/mcL Basophils # (0.0-0.2) K/mcL PT (9.4-12.1) Seconds INR APTT (26.0-36.0) Seconds Sodium 136 (136-145) mEq/L Potassium 3.8 (3.5-5.1) mEq/L Chloride 100 (98-107) mEq/L Carbon Dioxide 27 (23-29) mEq/L BUN 13 (8-23) mg/dL Creatinine 0.81 (0.70-1.30) mg/dL Est GFR ( Amer) > 60 (> 60) Est GFR (Non-Af Amer) > 60 (> 60) BUN/Creatinine Ratio 16 (6-26) Glucose 104 (70-105) mg/dL Calculated Osmolality 282 (280-300) Calcium 9.3 (8.6-10.3) mg/dL Total Bilirubin 2.5 H (0.3-1.0) mg/dL Direct Bilirubin 0.6 H (0.0-0.2) mg/dL Indirect Bilirubin 1.9 H (0.0-1.2) mg/dL AST 40 H (13-39) Units/L ALT 25 (7-52) Units/L Alkaline Phosphatase 61 (34-104) Units/L Troponin I < 0.03 (< 0.04) ng/mL B-Natriuretic Peptide (Less than 100) pg/mL Serum Total Protein 7.1 (6.4-8.9) g/dL Albumin 4.3 (3.5-5.7) g/dL Globulin 2.8 (2.4-3.5) g/dL Albumin/Globulin Ratio 1.5 (1.1-2.2) Lipase 5 L (11-82) Units/L Attestation Statement - Attestation Attestation: I reviewed the residents documentation and agree with the residents assessment and plan of care. I have personally had face to face time with the patient. (Brief History, Brief Exam, and MDM) I personally supervised and was present for the martin/critical portions of the following procedures completed by the resident: EKG 73 year old male presents to the Ed with complaints of dyspnea and tachycardia and appears to have V4-6 ST depressions which are otherwise new. Plan is to stabilize in the ED and ASA therapy has been given and will require admission to the hospital. D-dimer pending. will sign out to Dr. Mejias for followup on D-dimer in addition to continued stabilization.
--- NOTE | 2019-03-22 07:11 | Electrocardiograph Report ---
[place] [id number] Test Date: 2019-03-22 Pat Name: Jame Ramesh Department: EXAM3 Room: Gender: M [employer]: : 1945 Requested By: Kenna Turner Order Number: [id number] Reading MD: Isaiah Jones Measurements Intervals [place] Rate: 137 P: -25 [place]: 107 QRS: -35 QRSD: 120 T: 166 QT: 301 QTc: 455 Interpretive Statements Sinus tachycardia Incomplete left bundle branch block LVH with secondary repolarization abnormality ST depression, probably rate related Electronically Signed On 03-22-2019 7:09:11 EDT by Isaiah Jones
[2019-03-22] MEDS ORDERED: Isovue-370 500 ML BOTTLE IVP ONE (07:32)
--- NOTE | 2019-03-22 07:38 | Emergency Department Note ---
Disposition Clinical Impression: Tachycardia, Abnormal EKG, Pleural effusion, Orthopnea Disposition: Admitted As Inpatient Condition: Fair Time of Disposition: 09:07 SOB HPI - General Chief Complaint: ED Shortness of Breath/Dyspnea Stated Complaint: sob Time Seen by Provider: 03/22/19 05:43 Source: patient Mode of arrival: private vehicle Limitations: no limitations Nursing Notes Reviewed: Yes Vital Signs Reviewed: Yes - History of Present Illness Patient signed out to me by nighttime physician is Dr. Hannon and Dr. Turner pending further laboratory testing and reevaluation. Please see their note for further details. - Related Data Home Medications Medication Instructions Recorded Confirmed Glimepiride [Amaryl] 4 mg PO DAILY 11/16/15 03/22/19 Lamivudine/Zidovudine [Combivir] 1 tab PO BID 11/16/15 03/22/19 Lisinopril [Zestril] 20 mg PO DAILY 11/16/15 03/22/19 Omeprazole 20 mg PO DAILY 11/16/15 03/22/19 Venlafaxine HCl [Venlafaxine HCl 75 mg PO DAILY 11/16/15 03/22/19 ER] Warfarin [Coumadin] 3 mg PO SUMOWETHFR 11/05/16 03/22/19 Aspirin [Lo-Dose Aspirin EC] 81 mg PO DAILY 01/09/17 03/22/19 Ergocalciferol (VITAMIN D2) 50,000 unit PO MO 01/09/17 03/22/19 [Vitamin D2] Fluorouracil [Carac] 1 appl TP BID 01/09/17 01/24/17 Indinavir [Crixivan] 800 mg PO TID 01/09/17 03/22/19 Warfarin [Coumadin] 4 mg PO TUSA 01/09/17 03/22/19 Allergies Allergy/AdvReac Type Severity Reaction Status Date / Time Sulfa (Sulfonamide AdvReac SEE COMMENT Verified 03/22/19 05:43 Antibiotics) All systems ED: reviewed and negative except as stated. Review of Systems: As Per HPI Past Medical History - Past Medical History Medical history: Reports: DVT, diabetes, GERD, HIV/AIDS, hypertension, myocardial infarction, other Surgical history: Reports: angioplasty/stent Psychiatric history: Reports: anxiety, depression - Social History Smoking Status: Never smoker Smokeless Tobacco Status: No Alcohol use: Reports: rarely Drug use: Reports: none Physical Exam - General Limitations: no limitations General appearance: alert Course Course Narrative: Patient signed out to me by nighttime physician is Dr. Hannon and Dr. Turner pending further laboratory testing and reevaluation. Please see their note for further details. Jame is a 73-year-old male history of hypertension, HIV (diagnosis 1993) on HAART, Factor V Leiden on Coumadin, CAD presents emergency department for shortness of breath. Symptoms ongoing for the past 3 days or so. Last night was worse especially laying down. Reports nonproductive cough but denies any fevers. Denies any chest pain. No history of heart failure that he is aware of. On initial evaluation, patient was found to be tachycardic but not hypoxic. His EKG showed sinus tachycardia with lateral ST depressions. Repeat with similar. This appears changed from prior 2 years ago. On exam he did not appear in any respiratory distress. He is cachectic appearing. Diminished breath sounds in the bases with some rales. Otherwise clear. No pedal edema. Review of his labs did not reveal a leukocytosis. Chest x-ray otherwise unremarkable. Troponin negative. His BNP was elevated over 200. CT angiogram of the chest is pending at this time patient will likely require admission. Suspect component of possible heart failure. - Reevaluation(s) Reevaluation #1: CT scan did not reveal pulmonary embolism. He did reveal bilateral pleural effusion with possible infiltrate. Given his HIV status will empirically cover with antibiotics azithromycin and Rocephin. His BNP was elevated over 200. Lasix given here. Patient persistently tachycardic as high as 130. Will admit him for further evaluation. Patient is agreeable to this plan. Ms. pleural effusion, dyspnea, orthopnea with EKG changes. Time: 09:04 - Consultations Consultation #1: Spoke with on-call hospitalist daya Rodriguez to admit for pleural effusion, dys pnea, abnormal EKG with elevated BNP. No further orders at this time Vital Signs Temperature 97.3 F L 03/22/19 05:43 Pulse Rate 142 03/22/19 05:43 Respiratory Rate 16 03/22/19 05:43 Blood Pressure 134/92 03/22/19 05:43 O2 Sat by Pulse Oximetry 97 03/22/19 05:43 Temperature 97.3 F L 03/22/19 05:43 Pulse Rate 131 03/22/19 09:56 Respiratory Rate 23 03/22/19 09:56 Blood Pressure 132/106 03/22/19 09:56 O2 Sat by Pulse Oximetry 94 03/22/19 09:56 Oxygen Delivery Oxygen Delivery Room Air Shortness of Breath/Dyspnea - MDM Narrative Medical decision making narrative: Patient was discussed with my attending physician who agrees with ED management and final disposition. They independently evaluated the patient. Please refer to their attestation to this encounter for additional information. This note was generated by [employer] voice recognition software and as a result grammatical or spelling errors may occur using this program. - Medical Records Medical records reviewed: Yes I reviewed the patient's medical records. - Lab Data Lab results reviewed: Yes I reviewed the patient's lab results. Result diagrams: 03/22/19 06:10 03/22/19 06:10 Lab Results 03/22/19 03/22/19 03/22/19 Range/Units 06:10 06:10 06:10 WBC 7.9 (4.3-11.1) K/mcL RBC 4.09 L (4.19-5.50) M/mcL Hgb 14.9 (12.9-16.9) g/dL Hct 43.2 (37.5-50.1) % MCV 105.6 H (83.0-100.0) fL MCH 36.4 H (28.0-33.3) pg MCHC 34.5 (31.6-35.5) g/dL RDW 14.0 (11.5-14.5) % Plt Count 172 (140-400) K/mcL MPV 10.5 (9.4-12.4) fL Immature Gran % 0.4 (0-4) % Seg Neutrophils % 46.1 % Lymphocytes % 42.7 % Monocytes % 8.5 % Eosinophils % 2.0 % Basophils % 0.3 % Neutrophils # 3.6 (1.6-8.9) K/mcL Lymphocytes # 3.4 (0.6-4.6) K/mcL Monocytes # 0.7 (0.0-1.3) K/mcL Eosinophils # 0.2 (0.0-0.6) K/mcL Basophils # 0.0 (0.0-0.2) K/mcL PT 34.0 H (9.4-12.1) Seconds INR 3.0 APTT 49.7 H (26.0-36.0) Seconds D-Dimer 461 (0-500) ng/mLFEU Sodium (136-145) mEq/L Potassium (3.5-5.1) mEq/L Chloride (98-107) mEq/L Carbon Dioxide (23-29) mEq/L BUN (8-23) mg/dL Creatinine (0.70-1.30) mg/dL Est GFR ( Amer) (> 60) Est GFR (Non-Af Amer) (> 60) BUN/Creatinine Ratio (6-26) Glucose (70-105) mg/dL Calculated Osmolality (280-300) Calcium (8.6-10.3) mg/dL Total Bilirubin (0.3-1.0) mg/dL Direct Bilirubin (0.0-0.2) mg/dL Indirect Bilirubin (0.0-1.2) mg/dL AST (13-39) Units/L ALT (7-52) Units/L Alkaline Phosphatase (34-104) Units/L Troponin I (< 0.04) ng/mL B-Natriuretic Peptide 246 H (Less than 100) pg/mL Serum Total Protein (6.4-8.9) g/dL Albumin (3.5-5.7) g/dL Globulin (2.4-3.5) g/dL Albumin/Globulin Ratio (1.1-2.2) Lipase (11-82) Units/L 03/22/19 Range/Units 06:10 WBC (4.3-11.1) K/mcL RBC (4.19-5.50) M/mcL Hgb (12.9-16.9) g/dL Hct (37.5-50.1) % MCV (83.0-100.0) fL MCH (28.0-33.3) pg MCHC (31.6-35.5) g/dL RDW (11.5-14.5) % Plt Count (140-400) K/mcL MPV (9.4-12.4) fL Immature Gran % (0-4) % Seg Neutrophils % % Lymphocytes % % Monocytes % % Eosinophils % % Basophils % % Neutrophils # (1.6-8.9) K/mcL Lymphocytes # (0.6-4.6) K/mcL Monocytes # (0.0-1.3) K/mcL Eosinophils # (0.0-0.6) K/mcL Basophils # (0.0-0.2) K/mcL PT (9.4-12.1) Seconds INR APTT (26.0-36.0) Seconds D-Dimer (0-500) ng/mLFEU Sodium 136 (136-145) mEq/L Potassium 3.8 (3.5-5.1) mEq/L Chloride 100 (98-107) mEq/L Carbon Dioxide 27 (23-29) mEq/L BUN 13 (8-23) mg/dL Creatinine 0.81 (0.70-1.30) mg/dL Est GFR ( Amer) > 60 (> 60) Est GFR (Non-Af Amer) > 60 (> 60) BUN/Creatinine Ratio 16 (6-26) Glucose 104 (70-105) mg/dL Calculated Osmolality 282 (280-300) Calcium 9.3 (8.6-10.3) mg/dL Total Bilirubin 2.5 H (0.3-1.0) mg/dL Direct Bilirubin 0.6 H (0.0-0.2) mg/dL Indirect Bilirubin 1.9 H (0.0-1.2) mg/dL AST 40 H (13-39) Units/L ALT 25 (7-52) Units/L Alkaline Phosphatase 61 (34-104) Units/L Troponin I < 0.03 (< 0.04) ng/mL B-Natriuretic Peptide (Less than 100) pg/mL Serum Total Protein 7.1 (6.4-8.9) g/dL Albumin 4.3 (3.5-5.7) g/dL Globulin 2.8 (2.4-3.5) g/dL Albumin/Globulin Ratio 1.5 (1.1-2.2) Lipase 5 L (11-82) Units/L - Radiology Data Radiology results reviewed: Yes I reviewed the patient's radiology results. Chest X-Ray 03/22/19 06:30 IMPRESSION: 1. Bibasilar bandlike densities, favored to be atelectasis. 2. Chronic elevation of the right hemidiaphragm. 3. Stable mild enlargement of the cardiac silhouette. D/ / Steve Inman MD / Steve Inman MD Interpreting Provider: Steve Inman MD Chest CTA 03/22/19 08:26 IMPRESSION: No evidence of pulmonary embolism. Moderate lower lobe airspace disease which may represent pneumonia versus pulmonary edema. Small bilateral pleural effusions with associated low lung volumes. Cholelithiasis. D/ / 03/22/2019 08:37:37 Ben Olvera MD / jeremiah Interpreting Provider: Ben Olvera MD Attestation Statement - Attestation Attestation: I, Chris Mejias DO, examined this patient [id number] and my medical decision-making was reviewed with Joe Berry DO , Resident Physician. I agree with the documented findings, disposition and treatment plan as described except to the extent set forth below. I personally supervised and was present for the martin/critical portions of the procedures completed by the resident documented below. Please see my progress notes for details.
--- NOTE | 2019-03-22 08:06 | Emergency Department Note ---
Disposition Clinical Impression: Tachycardia, Abnormal EKG, Pleural effusion, Orthopnea Disposition: Admitted As Inpatient Condition: Fair Referrals: Jun Shah MD [Primary Care Provider] - Forms: ED Satisfaction Letter Time of Disposition: 09:58 General Adult HPI - General Chief complaint: ED Shortness of Breath/Dyspnea Stated complaint: sob Time Seen by Provider: 03/22/19 05:43 Source: patient Mode of arrival: private vehicle Limitations: no limitations - History of Present Illness Pain Scale: 0 - Related Data Home Medications Medication Instructions Recorded Confirmed Atenolol [Tenormin] 50 mg PO DAILY 11/16/15 01/24/17 Glimepiride [Amaryl] 2 mg PO DAILY 11/16/15 01/24/17 Lamivudine/Zidovudine [Combivir] 1 tab PO BID 11/16/15 01/24/17 Lisinopril [Zestril] 20 mg PO DAILY 11/16/15 01/24/17 Omeprazole 20 mg PO DAILY 11/16/15 01/24/17 Venlafaxine HCl [Venlafaxine HCl 75 mg PO DAILY 11/16/15 01/24/17 ER] Nut.tx.gluc.intoler,Lac-Fr,Soy 1 can PO BID 11/05/16 01/24/17 [Glucerna] Warfarin [Coumadin] 3 mg PO SUMOWETHFR 11/05/16 01/24/17 Aspirin [Lo-Dose Aspirin EC] 81 mg PO DAILY 01/09/17 01/24/17 Ergocalciferol (VITAMIN D2) 50,000 unit PO MO 01/09/17 01/24/17 [Vitamin D2] Fluorouracil [Carac] 1 appl TP BID 01/09/17 01/24/17 Indinavir [Crixivan] 800 mg PO TID 01/09/17 01/24/17 Warfarin [Coumadin] 4 mg PO TUSA 01/09/17 01/24/17 Desonide [Tridesilon] 1 appl TP DAILY PRN 01/24/17 01/24/17 Previous Rx's Medication Instructions Recorded ALPRAZolam [Xanax 0.25 MG Tablet] 0.25 mg PO TID PRN #20 tablet 11/09/16 Acetaminophen [Tylenol] 650 mg PO Q6HR PRN #0 tablet 11/09/16 Ampicillin Trihydrate 500 mg PO TID #21 capsule 01/28/17 Clindamycin HCl 300 mg PO TID #21 capsule 01/28/17 Saccharomyces Boulardii [Florastor] 250 mg PO TID #21 capsule 01/28/17 Allergies Allergy/AdvReac Type Severity Reaction Status Date / Time Sulfa (Sulfonamide AdvReac SEE COMMENT Verified 03/22/19 05:43 Antibiotics) Past Medical History - Past Medical History Medical history: Reports: DVT, diabetes, GERD, HIV/AIDS, hypertension, myocardial infarction, other Surgical history: Reports: angioplasty/stent Psychiatric history: Reports: anxiety, depression - Social History Smoking Status: Never smoker Smokeless Tobacco Status: No Alcohol use: Reports: rarely Drug use: Reports: none Physical Exam - General Limitations: no limitations General appearance: alert Course Vital Signs Temperature 97.3 F L 03/22/19 05:43 Pulse Rate 142 03/22/19 05:43 Respiratory Rate 16 03/22/19 05:43 Blood Pressure 134/92 03/22/19 05:43 O2 Sat by Pulse Oximetry 97 03/22/19 05:43 Temperature 97.3 F L 03/22/19 05:43 Pulse Rate 136 03/22/19 06:40 Respiratory Rate 14 03/22/19 06:40 Blood Pressure 114/97 03/22/19 06:40 O2 Sat by Pulse Oximetry 95 03/22/19 06:40 Oxygen Delivery Oxygen Delivery Room Air Medical Decision Making - Lab Data Result diagrams: 03/22/19 06:10 03/22/19 06:10 Lab Results 03/22/19 03/22/19 03/22/19 Range/Units 06:10 06:10 06:10 WBC 7.9 (4.3-11.1) K/mcL RBC 4.09 L (4.19-5.50) M/mcL Hgb 14.9 (12.9-16.9) g/dL Hct 43.2 (37.5-50.1) % MCV 105.6 H (83.0-100.0) fL MCH 36.4 H (28.0-33.3) pg MCHC 34.5 (31.6-35.5) g/dL RDW 14.0 (11.5-14.5) % Plt Count 172 (140-400) K/mcL MPV 10.5 (9.4-12.4) fL Immature Gran % 0.4 (0-4) % Seg Neutrophils % 46.1 % Lymphocytes % 42.7 % Monocytes % 8.5 % Eosinophils % 2.0 % Basophils % 0.3 % Neutrophils # 3.6 (1.6-8.9) K/mcL Lymphocytes # 3.4 (0.6-4.6) K/mcL Monocytes # 0.7 (0.0-1.3) K/mcL Eosinophils # 0.2 (0.0-0.6) K/mcL Basophils # 0.0 (0.0-0.2) K/mcL PT 34.0 H (9.4-12.1) Seconds INR 3.0 APTT 49.7 H (26.0-36.0) Seconds D-Dimer 461 (0-500) ng/mLFEU Sodium (136-145) mEq/L Potassium (3.5-5.1) mEq/L Chloride (98-107) mEq/L Carbon Dioxide (23-29) mEq/L BUN (8-23) mg/dL Creatinine (0.70-1.30) mg/dL Est GFR ( Amer) (> 60) Est GFR (Non-Af Amer) (> 60) BUN/Creatinine Ratio (6-26) Glucose (70-105) mg/dL Calculated Osmolality (280-300) Calcium (8.6-10.3) mg/dL Total Bilirubin (0.3-1.0) mg/dL Direct Bilirubin (0.0-0.2) mg/dL Indirect Bilirubin (0.0-1.2) mg/dL AST (13-39) Units/L ALT (7-52) Units/L Alkaline Phosphatase (34-104) Units/L Troponin I (< 0.04) ng/mL B-Natriuretic Peptide 246 H (Less than 100) pg/mL Serum Total Protein (6.4-8.9) g/dL Albumin (3.5-5.7) g/dL Globulin (2.4-3.5) g/dL Albumin/Globulin Ratio (1.1-2.2) Lipase (11-82) Units/L 03/22/19 Range/Units 06:10 WBC (4.3-11.1) K/mcL RBC (4.19-5.50) M/mcL Hgb (12.9-16.9) g/dL Hct (37.5-50.1) % MCV (83.0-100.0) fL MCH (28.0-33.3) pg MCHC (31.6-35.5) g/dL RDW (11.5-14.5) % Plt Count (140-400) K/mcL MPV (9.4-12.4) fL Immature Gran % (0-4) % Seg Neutrophils % % Lymphocytes % % Monocytes % % Eosinophils % % Basophils % % Neutrophils # (1.6-8.9) K/mcL Lymphocytes # (0.6-4.6) K/mcL Monocytes # (0.0-1.3) K/mcL Eosinophils # (0.0-0.6) K/mcL Basophils # (0.0-0.2) K/mcL PT (9.4-12.1) Seconds INR APTT (26.0-36.0) Seconds D-Dimer (0-500) ng/mLFEU Sodium 136 (136-145) mEq/L Potassium 3.8 (3.5-5.1) mEq/L Chloride 100 (98-107) mEq/L Carbon Dioxide 27 (23-29) mEq/L BUN 13 (8-23) mg/dL Creatinine 0.81 (0.70-1.30) mg/dL Est GFR ( Amer) > 60 (> 60) Est GFR (Non-Af Amer) > 60 (> 60) BUN/Creatinine Ratio 16 (6-26) Glucose 104 (70-105) mg/dL Calculated Osmolality 282 (280-300) Calcium 9.3 (8.6-10.3) mg/dL Total Bilirubin 2.5 H (0.3-1.0) mg/dL Direct Bilirubin 0.6 H (0.0-0.2) mg/dL Indirect Bilirubin 1.9 H (0.0-1.2) mg/dL AST 40 H (13-39) Units/L ALT 25 (7-52) Units/L Alkaline Phosphatase 61 (34-104) Units/L Troponin I < 0.03 (< 0.04) ng/mL B-Natriuretic Peptide (Less than 100) pg/mL Serum Total Protein 7.1 (6.4-8.9) g/dL Albumin 4.3 (3.5-5.7) g/dL Globulin 2.8 (2.4-3.5) g/dL Albumin/Globulin Ratio 1.5 (1.1-2.2) Lipase 5 L (11-82) Units/L Attestation Statement - Attestation Attestation: I, Chris Mejias DO, examined this patient [id number] and my medical decision-making was reviewed with Joe Berry DO , Resident Physician. I agree with the documented findings, disposition and treatment plan as described except to the extent set forth below. I personally supervised and was present for the martin/critical portions of the procedures completed by the resident documented below. Please see my progress notes for details. 73-year-old male presents emergency room for evaluation of shortness of breath and orthopnea. Patient has no specific history of congestive heart failure. He does have immunosuppression factor V Leiden secondary to HIV. Patient is having blood clots in the past. Patient denies any falls trauma or injury. Patient will sign out from the overnight physician Dr. Kenna Turner. Patient had pending laboratory evaluation as well as potential CT angiography the chest. Once that imaging workup and modality is completed and disposition will be admission at the request. Patient is otherwise been stable here. His heart rate continues to fluctuate between 130 and 100 bpm. Patient denies any chest pain fevers chills nausea vomiting or diarrhea. He has had intermittent shortness of breath lying flat but otherwise is resting comfortably in the bed. Repeat physical exam shows a well-appearing gentleman in no distress he is thin and frail. Lungs are clear heart is regular. Extremities membranes are slightly dry. He has no stridor no trismus. He has no auscultated abnormality in the chest wall or lung de jesus. Abdomen is soft. He does describe some slight distention to the abdomen but he has no point tenderness guarding rigidity or peritoneal symptoms at this time. Family is otherwise normal. No signs of edema or abnormality. Vital signs reviewed and are stable this point outside of the heart rate. Disposition to be determined. Repeat EKG was c ollected here and there is still lateral ischemia noted on the EKG but otherwise no acute signs of ST segment elevation. Initial troponin was negative. Patient is anticoagulated with Coumadin at 3.0. Patient will be monitored until disposition is determined. EKG was reviewed by myself and documented the resident physician's note. See detailed documentation the physical exam, medical intervention, medical decision-making disposition the resident physician's documentation. No critical care applied the patient's treatment course at this time. 0935 CT angiography confirms bilateral pleural effusion with right side being worse than left. Possible pneumonia as well. Antibiotic regimen has been ordered. Lactic acid and labs otherwise unremarkable. Concern is noted for volume overload with the orthopnea, elevated BNP as well as the elevated heart rate. Fluids will be provided to the patient and maintenance therapy. Patient will be given a second dose of metoprolol to help with his heart rate that is been persistently is heart rate has regulated at this time. The hospitalist Dr. caldwell reviewed the case. No other recommendations or concerns were noted at this point. Patient will be admitted for monitoring of what appears to be pneumonia and bilateral pleural effusions causing tachycardia and ischemic findings and EKG. Patient is still denying chest pain or other symptoms at this point. Disposition will be admission at this time.
[2019-03-22] MEDS ORDERED: Azithromycin 500 MG in D5% in Water 250 ML IVPB ONE (08:50)
[2019-03-22] MEDS ORDERED: Furosemide 40 MG/4 ML VIAL IVP ONE ×2 (08:50→16:00)
[2019-03-22] MEDS ORDERED: cefTRIAXone 1,000 MG in Water for inj. (sterile) 10 ML IVP ONE (08:50)
[2019-03-22] MEDS ORDERED: *HR* Metoprolol 5 MG/5 ML VIAL IVP ONE (09:46)
--- NOTE | 2019-03-22 12:26 | Internal Med History&Physical ---
Date of Encounter: 03/22/19 Time of Encounter: 12:35 Internal Medicine - H&P: HPI Chief complaint: shortness of breath Admitted From: Home Plans for Post Hospital Care: Home History of present illness: Mr. Ramesh is a 73 year old male with past medical history of HIV on HAART therapy, factor V Leiden deficiency on Coumadin, anxiety depression, coronary artery disease with last stent in 2003, diastolic CHF came in with complain of shortness of breath for the past 4-5 days. He denies any history of fevers, chills nausea vomiting or diarrhea. Denies any recent antibiotic use. He is compliant with his HIV medication and his last known water load was undetectable. He does not know his CD4 count. Has any history of heart failure is not taking any diuretics. Denies any lightheadedness or dizziness. Does help palpitation since more pronounced last night. Patient did not have any abdominal pain bowel or urinary complaints. Patient was admitted to the ER with lab remarkable for INR of 3, d-dimer of 461, bilirubin total 2.5 direct 0.6 indirect 1.9 AST 40, BNP 246. Chest CTA done which did not show any pulmonary embolism, moderate lower lobe airspace disease which could represent pneumonia versus pulmonary edema, bilateral pleural effusion, cholelithiasis. EKG was thought to be due to sinus tachycardia and he was given metoprolol and empiric ceftriaxone and azithromycin and Lasix as well as 1 L of normal saline. Admission was requested for further management Patient was evaluated in ER. In mild respiratory distress and complaining of palpitation. Denying any chest pain. Has shortness of breath but feeling slightly better. Denies any back pain abdominal pain. Past Med Surg Social Fam HX - Past Medical History Medical history: DVT, diabetes, GERD, HIV/AIDS, hypertension, myocardial infarction, other Additional medical history: Cardiac stent, HIV Positive 1996, occular fx and vocal cord injury Psychiatric history: anxiety, depression - Past Surgical History Surgical History: angioplasty/stent Additional surgical history: Eye surgery. cardiac stent x 1 2003 - Social History Smoking Status: Never smoker Smokeless Tobacco Status: No Alcohol use: rarely Drug use: none - Family History Mother Hx Family Cardiac Disorders: No Hx Family Respiratory Disorders: No Hx Family Cancer: Yes (Uterine cancer) Hx Family GI Disorders: No Hx Family Endocrine Disorder: No Hx Family Neuromuscular Disorders: No Hx Family Neurologic Disorders: No Hx Family HEENT Disorders: No Hx Family Autoimmune Disorders: No Sister Hx Family Cardiac Disorders: No Hx Family Respiratory Disorders: No Hx Family Cancer: Yes (Uterine) Hx Family GI Disorders: No Hx Family Endocrine Disorder: No Hx Family Neuromuscular Disorders: No Hx Family Neurologic Disorders: No Hx Family HEENT Disorders: No Hx Family Autoimmune Disorders: No Internal Medicine - H&P: Meds Glimepiride [Amaryl] 4 mg PO DAILY 11/16/15 [History] Lamivudine/Zidovudine [Combivir] 1 tab PO BID 11/16/15 [History] Lisinopril [Zestril] 20 mg PO DAILY 11/16/15 [History] Omeprazole 20 mg PO DAILY 11/16/15 [History] Venlafaxine HCl [Venlafaxine HCl ER] 75 mg PO DAILY 11/16/15 [History] Warfarin [Coumadin] 3 mg PO SUMOWETHFR 11/05/16 [History] Aspirin [Lo-Dose Aspirin EC] 81 mg PO DAILY 01/09/17 [History] Ergocalciferol (VITAMIN D2) [Vitamin D2] 50,000 unit PO MO 01/09/17 [History] Fluorouracil [Carac] 1 appl TP BID 01/09/17 [History] Indinavir [Crixivan] 800 mg PO TID 01/09/17 [History] Warfarin [Coumadin] 4 mg PO TUSA 01/09/17 [History] Allergy/AdvReac Type Severity Reaction Status Date / Time Sulfa (Sulfonamide AdvReac SEE COMMENT Verified 03/22/19 05:43 Antibiotics) All Systems PM: A 10-system review of systems was performed and is negative for pertinent findings except as documented above in the HPI. - Constitutional Vitals: Temp Pulse Resp BP Pulse Ox 97.3 F L 110 18 121/87 97 03/22/19 05:43 03/22/19 11:47 03/22/19 11:47 03/22/19 11:47 03/22/19 11:47 Exam: Constitutional: Vitals as noted. Conversant. No Apparent Distress. Thin and cachectic. Eyes : Sclera white, conjunctiva clear, no lid lag, PEARLA. ENT : Grossly normal hearing. Moist mucus membranes. No JVD, no cervical lymphadenopathy. no thyromegaly or mass. Respiratory : Decreased air entry at base. Mild accessory muscle use and rales at base. no rhonchi or wheezes Cardiovascular : tachycardic, +S1, +S2. no murmur, gallop, rubs. No chest wall tenderness GI/Abdominal : Soft, Non-tender, mildly distended, normal bowel sounds, soft, no peritoneal signs. no orgenomegaly or mass appreciated. no hernia. Musculoskeletal: no deformity noted. trace edema , pulses palpable and symmetrical in UE/LE. no calf tenderness. Neurological: AO X3, CN II-XII grossly intact, grossly normal motor and sensory exam. Skin: lipoatrophy of face Pych: Good insight and judgement. Intact memory. AOx3. Internal Med - H&P Results - Labs CBC & Chem 7: 03/22/19 06:10 03/22/19 06:10 Labs: Short CBC 03/22/19 Range/Units 06:10 WBC 7.9 (4.3-11.1) K/mcL Hgb 14.9 (12.9-16.9) g/dL Hct 43.2 (37.5-50.1) % Plt Count 172 (140-400) K/mcL Neutrophils # 3.6 (1.6-8.9) K/mcL BMP 03/22/19 06:10 Sodium 136 Potassium 3.8 Chloride 100 Carbon Dioxide 27 BUN 13 Creatinine 0.81 Glucose 104 Calcium 9.3 Cardiac Enzymes 03/22/19 03/22/19 Range/Units 06:10 10:10 Troponin I < 0.03 < 0.03 (< 0.04) ng/mL Liver Function 03/22/19 Range/Units 06:10 Total Bilirubin 2.5 H (0.3-1.0) mg/dL Direct Bilirubin 0.6 H (0.0-0.2) mg/dL AST 40 H (13-39) Units/L ALT 25 (7-52) Units/L Alkaline Phosphatase 61 (34-104) Units/L Albumin 4.3 (3.5-5.7) g/dL - EKG Data -: EKG Interpreted by Myself EKG shows normal: sinus rhythm Rate: tachycardia (irregular with atrial ectopies, occasional SVT/sinus tachycardia, LVH signs and ST depression in V4-5-6) - Impressions ITS Impressions Chest X-Ray 03/22/19 06:30 IMPRESSION: 1. Bibasilar bandlike densities, favored to be atelectasis. 2. Chronic elevation of the right hemidiaphragm. 3. Stable mild enlargement of the cardiac silhouette. D/ / Steve Inman MD / Steve Inman MD Interpreting Provider: Steve Inman MD Chest CTA 03/22/19 08:26 IMPRESSION: No evidence of pulmonary embolism. Moderate lower lobe airspace disease which may represent pneumonia versus pulmonary edema. Small bilateral pleural effusions with associated low lung volumes. Cholelithiasis. D/ / 03/22/2019 08:37:37 Ben Olvera MD / jeremiah Interpreting Provider: Ben Olvera MD - Assessment and Plan (1) Shortness of breath Current Visit: Yes Status: Acute Assessment and plan: Likely secondary to CHF rather than pneumonia. Patient received empiric antibiotics for [place] pneumonia in ER. We will hold further antibiotics for now. We will obtain blood and sputum cultures. We will obtain an MRSA screen, CRP, lactic acid pro calcitonin and urinary antigens on top of workup done in ER. Given his undetectable viral count unlikely he has pneumocystis pneumonia although he is needing oxygen supplementation. Obtain ABG. Patient is not taking any diuretics. Last echocardiogram in 2017 with EF of 55- 60%, last clinic dysfunction and LVH. Stress test in 2017 was negative for ischemia. Patient receive a dose of Lasix in ER as well as fluids. We will hold fluids for now. We will give Lasix dose later today. (2) CAD (coronary artery disease) Current Visit: Yes Status: Acute Assessment and plan: Patient without any chest pain. EKG with ST depression which could be related related along with LVH. Troponin negative 2. Monitor patient on telemetry. Qualifiers: Coronary Disease-Associated Artery/Lesion type: unspecified vessel or lesion type Associated angina: without angina Qualified Code(s): I25.10 - Atherosclerotic heart disease of [place] coronary artery without angina pectoris (3) Tachycardia Current Visit: Yes Status: Acute Assessment and plan: Initially felt to be sinus tachycardia however patient has runs of SVT and multiple APCs and irregular rhythm Patient denies history of irregular rhythm or A. fib. We will consult cardiology for further recommendation for abnormal EKG. We will keep patient on metoprolol IV when necessary for now to control rate less than 100. We will monitor patient on telemetry. Patient hemodynamically stable. (4) Diabetes mellitus type II, non insulin dependent Current Visit: No Status: Chronic Assessment and plan: Keep patient on diabetic diet and sliding scale insulin. Hold home glimepiride (5) Factor V Leiden Current Visit: No Status: Chronic Assessment and plan: Patient on Coumadin at home. INR slightly supratherapeutic. We will resume Coumadin per pharmacy to dose. We will hold for today. (6) HIV (human immunodeficiency virus infection) Current Visit: No Status: Chronic Assessment and plan: Patient's last viral count reported to be undetectable. continue his HAART regimen Qualifiers: HIV symptom status: asymptomatic Qualified Code(s): Z21 - Asymptomatic human immunodeficiency virus [HIV] infection status (7) Hypertension Current Visit: No Status: Chronic Assessment and plan: Hold home anti-hypertensives for now to allow room for rate control if needed to start a drip. Qualifiers: Hypertension type: essential hypertension Qualified Code(s): I10 - Essential (primary) hypertension (8) Supratherapeutic INR Current Visit: Yes Status: Acute Assessment and plan: Hold Coumadin for now. Will monitor INR and resume as needed. pharmacy to dose (9) DVT prophylaxis Current Visit: No Status: Acute Assessment and plan: On Coumadin - Time Spent With Patient Total time spent is greater than 50% in coordination of care (as documented) at patient's floor/unit and/or counseling patient:
[2019-03-22] MEDS ORDERED: *HR* Metoprolol 5 MG/5 ML VIAL IVP PRN ×2 (12:46→12:54)
--- NOTE | 2019-03-22 13:46 | Cardiology Consult Note ---
<RyRolanda J - Last Filed: 03/22/19 14:37> Date of Encounter: 03/22/19 Time of Encounter: 13:39 Assessment and Plan (1) CHF (congestive heart failure) Current Visit: Yes Status: Acute Per cardiology: -Reports NYHA class III symptoms. -Chest CTA with pneumonia vs pulmonary edema. Small bilateral pleural effusions. -BNP 246. -Reports orthopnea. -Was given IV lasix. Reports symptoms improved since IV lasix. -TTE pending. -Strict i/os, fluid restriction, daily weights. -Agree with TTE. -Agree with IV diuresis. Qualifiers: Heart failure type: unspecified Heart failure chronicity: acute Qualified Code(s): I50.9 - Heart failure, unspecified (2) Atrial fibrillation with RVR Current Visit: Yes Status: Acute Per cardiology: -New onset a.fib RVR noted. -Was given IV lopressor. -[id number] score 7 (age, DVT, HTN, CAD, DM, CHF). Currently on coumadin for factor V and DVT. -Average HR noted to be 116, a.fib. -Will add oral BB. If needed, can consider cardizem drip. -Continue coumadin. Discussion w patient/family: The assessment and plan as outlined above was discussed with the patient who expressed understanding and agreement. All questions were answered. Thank you for involving us in the care of your patient. Please call with any questions. Discussed and reviewed with . History of Present Illness Consult date: 03/22/19 Requesting physician: Lorena Aguilar Consult reason: tachycardia Chief complaint: shortness of breath History of present illness: Mr. Ramesh is a 73 year old male with a relevant past medical history of HIV/AIDS, hepatit C, corrhosis, factor V on coumadin, DVT, DM, HTN, CAD, [place] 2004, HLD, splenomegaly, EKTA, depression, thoracic aortic aneurysm, who pre sented to [facility] with complaints of shortness of breath. Patient states symptoms started on Friday and became progressively worse. Patient reports orthopnea. Denies fever, chills. Denies chest pain. Denies palpitations/fluttering. Patient reports symptoms have improved since IV lasix. Past Med Surg Social Fam HX - Past Medical History Attestation: Yes The following information was validated with the patient. Source: patient, old records reviewed Medical history: coronary artery disease, DVT, diabetes, GERD, HIV/AIDS, hypertension, myocardial infarction, other Additional medical history: Cardiac stent, HIV Positive 1996, occular fx and vocal cord injury Psychiatric history: anxiety, depression - Past Surgical History Surgical History: angioplasty/stent Additional surgical history: Eye surgery. cardiac stent x 1 2003 - Social History Smoking Status: Never smoker Smokeless Tobacco Status: No Alcohol use: rarely Drug use: none - Family History Mother Hx Family Cardiac Disorders: No Hx Family Respiratory Disorders: No Hx Family Cancer: Yes (Uterine cancer) Hx Family GI Disorders: No Hx Family Endocrine Disorder: No Hx Family Neuromuscular Disorders: No Hx Family Neurologic Disorders: No Hx Family HEENT Disorders: No Hx Family Autoimmune Disorders: No Sister Hx Family Cardiac Disorders: No Hx Family Respiratory Disorders: No Hx Family Cancer: Yes (Uterine) Hx Family GI Disorders: No Hx Family Endocrine Disorder: No Hx Family Neuromuscular Disorders: No Hx Family Neurologic Disorders: No Hx Family HEENT Disorders: No Hx Family Autoimmune Disorders: No Medications and Allergies Glimepiride [Amaryl] 4 mg PO DAILY 11/16/15 [History] Lamivudine/Zidovudine [Combivir] 1 tab PO BID 11/16/15 [History] Lisinopril [Zestril] 20 mg PO DAILY 11/16/15 [History] Omeprazole 20 mg PO DAILY 11/16/15 [History] Venlafaxine HCl [Venlafaxine HCl ER] 75 mg PO DAILY 11/16/15 [History] Warfarin [Coumadin] 3 mg PO SUMOWETHFR 11/05/16 [History] Aspirin [Lo-Dose Aspirin EC] 81 mg PO DAILY 01/09/17 [History] Ergocalciferol (VITAMIN D2) [Vitamin D2] 50,000 unit PO MO 01/09/17 [History] Fluorouracil [Carac] 1 appl TP BID 01/09/17 [History] Indinavir [Crixivan] 800 mg PO TID 01/09/17 [History] Warfarin [Coumadin] 4 mg PO TUSA 01/09/17 [History] Allergy/AdvReac Type Severity Reaction Status Date / Time Sulfa (Sulfonamide AdvReac SEE COMMENT Verified 03/22/19 05:43 Antibiotics) All Systems Review: The remainder of the systems were reviewed and are negative - Cardiovascular Cardiovascular: as per HPI, dyspnea at rest, dyspnea on exertion, orthopnea Physical Examination Vital Signs, Last 4 Hours Pulse Resp BP Pulse Ox 03/22/19 12:37 95 03/22/19 11:47 110 18 121/87 97 03/22/19 09:56 131 23 132/106 94 General: Conversant, Other (Mild conversational dypsnea noted. ) HEENT: Atraumatic, Normocephaly, Mucus Membranes Moist Neck: No JVD, Normal carotid pulses Cardiac: Normal S1 and S2, No Murmur, Other (Irregularly irregular) Lungs: Other (Lung sounds diminished throughout. ) Neuro: Alert and responsive, No focal deficits noted Abdomen: Soft, Non-Tender Skin: No rashes noted on visualized skin Musculoskeletal: No Chest Wall Tenderness Extremities: No Clubbing, No Cyanosis, No Edema, Normal Pulses Results 03/22/19 06:10 03/22/19 06:10 Lab Results Impressions Chest X-Ray 03/22/19 06:30 IMPRESSION: 1. Bibasilar bandlike densities, favored to be atelectasis. 2. Chronic elevation of the right hemidiaphragm. 3. Stable mild enlargement of the cardiac silhouette. D/ / Steve Inman MD / Steve Inman MD Interpreting Provider: Steve Inman MD Chest CTA 03/22/19 08:26 IMPRESSION: No evidence of pulmonary embolism. Moderate lower lobe airspace disease which may represent pneumonia versus pulmonary edema. Small bilateral pleural effusions with associated low lung volumes. Cholelithiasis. D/ / 03/22/2019 08:37:37 Ben Olvera MD / jeremiah Interpreting Provider: Ben Olvera MD Active Medications Aspirin (Aspirin Ec) 81 mg PO DAILY [facility] Stop: 09/22/19 09:01 Indinavir Sulfate (Crixivan) 800 mg PO TID [facility] Stop: 03/24/20 15:01 Lamivudine/Zidovudine (Combivir) 1 each PO BID [facility] Stop: 09/21/19 21:01 Metoprolol Tartrate (Lopressor) 5 mg IVP Q6HR PRN PRN Reason: Tachyarrhythmias Stop: 09/21/19 06:24 Omeprazole (Prilosec) 20 mg PO DAILY@0630 [facility] Stop: 09/22/19 06:31 Venlafaxine HCl (Effexor Xr) 75 mg PO DAILY [facility] Stop: 09/22/19 09:01 Warfarin Sodium (Coumadin Perpt) 1 each PO DAILY@1800 PRN; Protocol PRN Reason: SEE COMMENTS Stop: 09/21/19 18:01 Laboratory Tests 03/22/19 03/22/19 03/22/19 06:10 06:10 06:10 Hgb 14.9 INR 3.0 Creatinine Troponin I B-Natriuretic Peptide 246 H 03/22/19 03/22/19 06:10 10:10 Hgb INR Creatinine 0.81 Troponin I < 0.03 < 0.03 B-Natriuretic Peptide - Imaging and Cardiology Chest Xray: report reviewed Stress Test: report reviewed Echo: pending, report reviewed - EKG Interpretation EKG results cardiology: personally reviewed (ECG with a.fib RVR.), other (T elemetry reviewed with average HR noted to be 116, a.fib RVR. PVCs noted.) Consult Discharge Plan - Plan Referrals: Jun Shah MD [Primary Care Provider] - CHADS2-VASC Score - Score Age: 65-74 Sex: Male CHF History: Yes Hypertension history: Yes Stroke/TIA/Thromboembolism Hx: Yes Vascular disease history: Yes Diabetes history: Yes Score: 7 HAS-BLED Score - Score Elderly: Age>65 years Medication usage predisposing to bleeding: Antiplatelet agents, NSAIDs, Anticoagulants Score: 2 <Isaiah Jones A - Last Filed: 03/22/19 21:07> Date of Encounter: 03/22/19 - Attending Attestation I have personally performed a face to face evaluation on this patient. I have reviewed and agree with the documented findings and care plan as documented by valeria montaño CNP. History and Exam by me shows: Patient with features suggestive of acute diastolic CHF. I agree with diuresis. Obtain echocardiogram Thanks for the consult, please call with questions. Isaiah Jones MD FAC Assessment and Plan Discussion w patient/family: The assessment and plan as outlined above was discussed with the patient and/or family members who expressed understanding and agreement. All questions were answered. Thank you for involving us in the care of your patient. Please call with any questions. History of Present Illness History of present illness: Mr. Ramesh is a 73 year old male All Systems Review: The remainder of the systems were reviewed and are negative Physical Examination Vital Signs, Last 4 Hours Temp Pulse Resp BP Pulse Ox 03/22/19 20:01 97.5 F L 67 18 137/92 98 03/22/19 17:13 124/86 Results 03/22/19 06:10 03/22/19 06:10 Lab Results 03/22/19 03/22/19 03/22/19 06:10 06:10 06:10 WBC 7.9 Hgb 14.9 Hct 43.2 Plt Count 172 INR 3.0 APTT 49.7 H D-Dimer 461 Sodium Potassium Chloride Carbon Dioxide BUN Creatinine Glucose Calcium Total Bilirubin AST ALT Alkaline Phosphatase Troponin I B-Natriuretic Peptide 246 H Lipase 03/22/19 03/22/19 06:10 10:10 WBC Hgb Hct Plt Count INR APTT D-Dimer Sodium 136 Potassium 3.8 Chloride 100 Carbon Dioxide 27 BUN 13 Creatinine 0.81 Glucose 104 Calcium 9.3 Total Bilirubin 2.5 H AST 40 H ALT 25 Alkaline Phosphatase 61 Troponin I < 0.03 < 0.03 B-Natriuretic Peptide Lipase 5 L
[2019-03-22] MEDS: Metoprolol XL (24 HR) Succ 25 MG TAB.ER.24H PO SCH (15:25)
[2019-03-22] MEDS: [UNRECOGNIZED DRUG - OTHER] PO SCH ×2 (15:25→21:06)
[2019-03-22] MEDS: Insulin LISPRO 300 UNITS/3 ML VIAL SQ SCH ×2 (16:37→21:38)
[2019-03-22] MEDS ORDERED: *HR* Warfarin 3 MG TABLET PO ONE (18:00)
[2019-03-22] MEDS ORDERED: Warfarin perPT PO PRN (18:00)
--- NOTE | 2019-03-22 18:33 | Electrocardiograph Report ---
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
[2019-03-23 06:08] LABS: Basophils % 0.5 %; Eosinophils # 0.1 K/mcL (0.0-0.6); Eosinophils % 2.1 %; Hematocrit 41.4 % (37.5-50.1); Hemoglobin 14.3 g/dL (12.9-16.9); Immature Granulocytes % 0.3 % (0-4); Lymphocytes # 2.7 K/mcL (0.6-4.6); Lymphocytes % 44.6 %; Mean Corpuscular HGB Conc 34.5 g/dL (31.6-35.5); Mean Corpuscular Hemoglobin 36.7 pg (28.0-33.3); Mean Corpuscular Volume 106.2 fL (83.0-100.0); Mean Platelet Volume 10.5 fL (9.4-12.4); Monocytes # 0.6 K/mcL (0.0-1.3); Monocytes % 9.8 %; Neutrophils # 2.6 K/mcL (1.6-8.9); Nucleated Red Blood Cells 0.3 /100 WBC (0); Platelet Count 159 K/mcL (140-400); Red Cell Distribution Width 14.2 % (11.5-14.5); Segmented Neutrophils % 42.7 %; White Blood Count 6.1 K/mcL (4.3-11.1)
[2019-03-23 06:17] LABS: INR 3.2; Prothrombin Time 36.7 Seconds (9.4-12.1)
[2019-03-23 06:33] LABS: Alanine Aminotransferase 21 Units/L (7-52); Albumin 3.9 g/dL (3.5-5.7); Albumin/Globulin Ratio 1.3 (1.1-2.2); Alkaline Phosphatase 55 Units/L (34-104); Aspartate Amino Transferase 34 Units/L (13-39); BUN/Creatinine Ratio 18 (6-26); Bilirubin,Total 1.8 mg/dL (0.3-1.0); Blood Urea Nitrogen 14 mg/dL (8-23); Calcium 9.2 mg/dL (8.6-10.3); Carbon Dioxide 28 mEq/L (23-29); Chloride 101 mEq/L (98-107); Globulin 2.9 g/dL (2.4-3.5); Glucose 78 mg/dL (70-105); Osmolality,Calculated 289 (280-300); Potassium 3.5 mEq/L (3.5-5.1); Sodium 140 mEq/L (136-145); Total Protein 6.8 g/dL (6.4-8.9); eGFR For African Americans > 60 (> 60); eGFR For Non-African Americans > 60 (> 60)
[2019-03-23] MEDS: Insulin LISPRO 300 UNITS/3 ML VIAL SQ SCH ×4 (07:42→21:02)
[2019-03-23] MEDS: Aspirin Enteric Coated 81 MG Tablet PO SCH (08:29)
[2019-03-23] MEDS: Furosemide 40 MG/4 ML VIAL IVP SCH (08:29)
[2019-03-23] MEDS: Metoprolol XL (24 HR) Succ 25 MG TAB.ER.24H PO SCH (08:29)
[2019-03-23] MEDS: [UNRECOGNIZED DRUG - OTHER] PO SCH ×3 (08:30→21:03)
[2019-03-23] MEDS: Venlafaxine XR (24 HR) 75 MG CAP.ER.24H PO SCH (08:32)
[2019-03-23] MEDS ORDERED: D5% in Water 1,000 ML IVC PRN (08:55)
[2019-03-23] MEDS ORDERED: Dextrose Gel 15 GM/37.5 ML TUBE PO PRN ×2 (08:55)
[2019-03-23] MEDS ORDERED: *HR* Dextrose 50 % in Water (Syg) 50 ML SYRINGE IVP PRN (08:55)
--- NOTE | 2019-03-23 10:58 | Cardiology Progress Note ---
Date of Encounter: 03/23/19 Time of Encounter: 10:56 Assessment and Plan (1) CHF (congestive heart failure) Current Visit: Yes Status: Acute Per cardiology: -Reports NYHA class III symptoms. -Chest CTA with pneumonia vs pulmonary edema. Small bilateral pleural effusions. -BNP 246. -Reports orthopnea. -On IV lasix, currently net negative ~1.4L. -Of note, still on O2, not normally on at home. -TTE pending. -Continue IV diuresis. -Strict i/os, fluid restriction, daily weights. Qualifiers: Heart failure type: unspecified Heart failure chronicity: acute Qualified Code(s): I50.9 - Heart failure, unspecified (2) Atrial fibrillation with RVR Current Visit: Yes Status: Acute Per cardiology: -New onset a.fib RVR noted. -Was given IV lopressor and started on oral BB. -[id number] score 7 (age, DVT, HTN, CAD, DM, CHF). Currently on coumadin for factor V and DVT. -Average HR noted to be 80, a.fib. -Continue BB, can uptitrate if needed. -Recommend outpatient ischemic evaluation. Discussion w patient/family: The assessment and plan as outlined above was discussed with the patient who expressed understanding and agreement. All questions were answered. Thank you for involving us in the care of your patient. Please call with any questions. Discussed and reviewed with . Subjective Principal diagnosis: CHF, a.fib Interval history: Patient reports symptoms are improved today. Objective Vital Signs, Last 4 Hours Temp Pulse Resp BP Pulse Ox 03/23/19 08:44 95 03/23/19 07:31 97.9 F 74 18 157/91 96 General: Conversant, No Apparent Distress HEENT: Atraumatic, Normocephaly, Mucus Membranes Moist Neck: No JVD, Normal carotid pulses Cardiac: Normal S1 and S2, No Murmur, Other (Irregularly irregular) Lungs: Other (Lung sounds diminished throughout. ) Neuro: Alert and responsive, No focal deficits noted Abdomen: Soft, Non-Tender Skin: No rashes noted on visualized skin Musculoskeletal: No Chest Wall Tenderness Extremities: No Clubbing, No Cyanosis, No Edema, Normal Pulses Results 03/23/19 05:00 03/23/19 05:00 Lab Results Active Medications Aspirin (Aspirin Ec) 81 mg PO DAILY [facility] Stop: 09/22/19 09:01 Last Admin: 03/23/19 08:29 Dose: 81 mg Documented by: Dextrose/Water (Dextrose 50% (Syg)) 25 ml IVP AD PRN PRN Reason: Hypoglycemia Stop: 09/22/19 08:56 Furosemide (Lasix) 40 mg IVP DAILY [facility] Stop: 09/22/19 09:01 Last Admin: 03/23/19 08:29 Dose: 40 mg Documented by: Glucagon (Glucagen) 1 mg IM ONCE PRN PRN Reason: Hypoglycemia Stop: 09/22/19 08:56 Glucose (Gluctose) 15 gm PO ONCE PRN PRN Reason: Hypoglycemia Stop: 09/22/19 08:56 Glucose (Gluctose) 30 gm PO ONCE PRN PRN Reason: Hypoglycemia Stop: 09/22/19 08:56 Diltiazem HCl 50 mg/ Sodium (Chloride) 50 mls @ 5 mls/hr IVC CONT [facility]; Protocol Stop: 09/21/19 17:31 Last Admin: 03/23/19 03:59 Dose: Not Given Documented by: Dextrose (Dextrose 5%) 1,000 mls @ 100 mls/hr IVC .Q10H PRN PRN Reason: HYPOGLYCEMIA Stop: 09/22/19 08:56 Indinavir Sulfate (Crixivan) 800 mg PO TID [facility] Stop: 09/21/19 15:01 Last Admin: 03/23/19 08:30 Dose: 800 mg Documented by: Insulin Human Lispro (Humalog) 0 units SQ TIDAC [facility]; Protocol Stop: 09/21/19 16:31 Last Admin: 03/23/19 07:42 Dose: Not Given Documented by: Insulin Human Lispro (Humalog) 0 units SQ HS [facility]; Protocol Stop: 09/21/19 21:01 Last Admin: 03/22/19 21:38 Dose: Not Given Documented by: Lamivudine/Zidovudine (Combivir) 1 each PO BID [facility] Stop: 09/21/19 21:01 Last Admin: 03/23/19 08:30 Dose: 1 each Documented by: Metoprolol Succinate (Toprol Xl) 25 mg PO DAILY [facility] Stop: 09/21/19 14:15 Last Admin: 03/23/19 08:29 Dose: 25 mg Documented by: Omeprazole (Prilosec) 20 mg PO DAILY@0630 [facility] Stop: 09/22/19 06:31 Last Admin: 03/23/19 06:55 Dose: 20 mg Documented by: Venlafaxine HCl (Effexor Xr) 75 mg PO DAILY [facility] Stop: 09/22/19 09:01 Last Admin: 03/23/19 08:32 Dose: 75 mg Documented by: Warfarin Sodium (Coumadin Perpt) 1 each PO DAILY@1800 PRN; Protocol PRN Reason: SEE COMMENTS Stop: 09/21/19 18:01 Laboratory Tests 03/23/19 03/23/19 03/23/19 05:00 05:00 05:00 Hgb 14.3 INR 3.2 Creatinine 0.76 - Imaging and Cardiology Chest Xray: report reviewed Echo: pending - EKG Interpretation EKG results cardiology: other (Telemetry reviewed with average HR previous 12 hours noted to be 80, a.fib PVCs noted.) Consult Discharge Plan - Plan Referrals: Jun Shah MD [Primary Care Provider] -
--- NOTE | 2019-03-23 11:08 | Internal Med Progress Note ---
Hospitalist Progress Note - Encounter Date of Encounter: 03/23/19 Time of Encounter: 09:40 - Subjective Interval History: Patient was seen this morning, he denied chest pain or palpitation, fever or chills. He is able to lay flat as opposed prior to admission. - Exam Vitals: Temp Pulse Resp BP Pulse Ox 97.9 F 74 18 157/91 95 03/23/19 07:31 03/23/19 07:31 03/23/19 07:31 03/23/19 07:31 03/23/19 08:44 Exam: Constitutional: Vitals as noted. Conversant. No Apparent Distress. Thin and cachectic. Eyes : Sclera white, conjunctiva clear, no lid lag, PEAR[place]. ENT : Grossly normal hearing. Moist mucus membranes. No JVD, no cervical lymphadenopathy. no thyromegaly or mass. Respiratory : Bibasilar crackles Cardiovascular : Normal rate, regular rhythm. GI/Abdominal : Soft, Non-tender, mildly distended, normal bowel sounds, soft, no peritoneal signs. no orgenomegaly or mass appreciated. no hernia. Musculoskeletal: no deformity noted. No trace edema , pulses palpable and symmetrical in UE/LE. no calf tenderness. Neurological: AO X3, CN II-XII grossly intact, grossly normal motor and sensory exam. Skin: lipoatrophy of face Pych: Good insight and judgement. Intact memory. AOx3. - Assessment and Plan (1) CAD (coronary artery disease) Current Visit: Yes Status: Acute (2) Diabetes mellitus type II, non insulin dependent Current Visit: Yes Status: Chronic (3) Factor V Leiden Current Visit: No Status: Chronic (4) HIV (human immunodeficiency virus infection) Current Visit: No Status: Chronic (5) Hypertension Current Visit: No Status: Chronic (6) Supratherapeutic INR Current Visit: Yes Status: Acute (7) DVT prophylaxis Current Visit: No Status: Acute (8) PNA (pneumonia) Current Visit: Yes Status: Acute (9) Atrial fibrillation with RVR Current Visit: Yes Status: Acute - Summary of Assessment and Plan Summary of Assessment and Plan: 73-year-old male with history of HIV on HAART therapy, factor V [place] who came into the hospital due to shortness of breath. A. fib with RVR: On Coumadin for anticoagulation, started on Toprol 25 daily, DC Cardizem drip. Echo is pending. Cardiology on board. INR is supratherapeutic. Acute decompensated heart failure preserved ejection fraction: Likely from A. fib and pneumonia. On Lasix 40 mg IV. Total I&O -1.3 L. pending echo. Pneumonia: As stated on CT scan. Patient reported productive cough which is new for him. Legionella and streptococcus antigens are negative. Blood and sputum cultures are pending. Continue Rocephin day 2 Acute hypoxic respiratory failure: On 2L of o2. 2/2 above. continue to wean off O2. HIV: as per the patient, HIV was not detectable when last checked this month by his PCP. continue with HARRT therapy DVT ppx: INR is supratheraputic. - Time Spent with Patient Total time spent is greater than 50% in coordination of care (as documented) at patient's floor/unit and/or counseling patient: Plan of Care Discussed with: patient Internal Medicine: Result - Labs CBC & Chem 7: 03/23/19 05:00 03/23/19 05:00 Labs: Short CBC 03/23/19 Range/Units 05:00 WBC 6.1 (4.3-11.1) K/mcL Hgb 14.3 (12.9-16.9) g/dL Hct 41.4 (37.5-50.1) % Plt Count 159 (140-400) K/mcL Neutrophils # 2.6 (1.6-8.9) K/mcL BMP 03/23/19 05:00 Sodium 140 Potassium 3.5 Chloride 101 Carbon Dioxide 28 BUN 14 Creatinine 0.76 Glucose 78 Calcium 9.2 Cardiac Enzymes 03/22/19 Range/Units 10:10 Troponin I < 0.03 (< 0.04) ng/mL Liver Function 03/23/19 Range/Units 05:00 Total Bilirubin 1.8 H (0.3-1.0) mg/dL AST 34 (13-39) Units/L ALT 21 (7-52) Units/L Alkaline Phosphatase 55 (34-104) Units/L Albumin 3.9 (3.5-5.7) g/dL - ABG Interpretation ABG results: PT/INR, D-dimer PT 36.7 Seconds (9.4-12.1) H 03/23/19 05:00 D-Dimer 461 ng/mLFEU (0-500) 03/22/19 06:10 Consult Discharge Plan - Plan Referrals: Jun Shah MD [Primary Care Provider] - (1) CAD (coronary artery disease) Qualifiers: Coronary Disease-Associated Artery/Lesion type: unspecified vessel or lesion type Associated angina: without angina Qualified Code(s): I25.10 - Atherosclerotic heart disease of [place] coronary artery without angina pectoris (4) HIV (human immunodeficiency virus infection) Qualifiers: HIV symptom status: asymptomatic Qualified Code(s): Z21 - Asymptomatic human immunodeficiency virus [HIV] infection status (5) Hypertension Qualifiers: Hypertension type: essential hypertension Qualified Code(s): I10 - Essential (primary) hypertension (8) PNA (pneumonia) Qualifiers: Pneumonia type: due to unspecified organism Laterality: left Lung location: lower lobe of lung Qualified Code(s): J18.1 - Lobar pneumonia, unspecified organism
[2019-03-23] MEDS: cefTRIAXone 1,000 MG in Water for inj. (sterile) 10 ML IVP SCH (13:39)
--- NOTE | 2019-03-23 14:07 | Event Note ---
Date of Encounter: 03/23/19 Time of Encounter: 14:04 - Cardiology Event Note TTE resulted with LVEF 50%, mild valvular disease, no SWMA. Discussed results with patient. Recommend continued diuresis until euvolemic and off O2, as renal function tolerates.Recommend oral lasix at discharge. CHF education reviewed with patient. Regarding a.fib, continue BB, can further uptitrate as needed. On coumadin for anticoagulation. Recommend outpatient stress test. Cardiology will sign off, recommend close outpatient follow up. Of note, patient follows with . Re-consult if needed.
[2019-03-23] MEDS ORDERED: *HR* Warfarin 2 MG TABLET PO ONE (18:00)
[2019-03-24 05:25] LABS: Hematocrit 41.7 % (37.5-50.1); Hemoglobin 14.3 g/dL (12.9-16.9); Mean Corpuscular HGB Conc 34.3 g/dL (31.6-35.5); Mean Platelet Volume 10.6 fL (9.4-12.4); Platelet Count 153 K/mcL (140-400); Red Blood Count 3.97 M/mcL (4.19-5.50); Red Cell Distribution Width 13.8 % (11.5-14.5); White Blood Count 5.8 K/mcL (4.3-11.1)
[2019-03-24] MEDS ORDERED: *HR* Metoprolol 5 MG/5 ML VIAL IVP ONE (05:34)
[2019-03-24 05:35] LABS: INR 2.6; Prothrombin Time 29.4 Seconds (9.4-12.1)
[2019-03-24 05:45] LABS: BUN/Creatinine Ratio 19 (6-26); Blood Urea Nitrogen 18 mg/dL (8-23); Calcium 9.2 mg/dL (8.6-10.3); Carbon Dioxide 31 mEq/L (23-29); Chloride 101 mEq/L (98-107); Glucose 118 mg/dL (70-105); Osmolality,Calculated 291 (280-300); Potassium 3.5 mEq/L (3.5-5.1); Sodium 139 mEq/L (136-145); eGFR For African Americans > 60 (> 60); eGFR For Non-African Americans > 60 (> 60)
[2019-03-24 07:02] VITALS: BP 160/87
[2019-03-24] MEDS: Insulin LISPRO 300 UNITS/3 ML VIAL SQ SCH (09:22)
[2019-03-24] MEDS: cefTRIAXone 1,000 MG in Water for inj. (sterile) 10 ML IVP SCH (09:23)
[2019-03-24] MEDS: Furosemide 40 MG/4 ML VIAL IVP SCH (09:23)
[2019-03-24] MEDS: Venlafaxine XR (24 HR) 75 MG CAP.ER.24H PO SCH (09:24)
[2019-03-24] MEDS: Metoprolol XL (24 HR) Succ 25 MG TAB.ER.24H PO SCH (09:24)
[2019-03-24] MEDS: Aspirin Enteric Coated 81 MG Tablet PO SCH (09:24)
[2019-03-24] MEDS: [UNRECOGNIZED DRUG - OTHER] PO SCH (09:25)
[2019-03-24] MEDS ORDERED: Metoprolol XL (24 HR) Succ 25 MG TAB.ER.24H PO ONE (09:55)
--- NOTE | 2019-03-24 10:18 | Discharge Summary ---
Orders not resulted at time of discharge: Pending orders 03/22/19 12:43 Sputum Culture [Culture,Sputum with Gram Stain] [] Routine 03/22/19 13:45 Culture,Blood [] Routine Date of Encounter: 03/24/19 Time of Encounter: 10:00 - Discharge Diagnosis (1) Atrial fibrillation with RVR Priority: Primary Status: Acute Assessment and Plan: 73 year old male with past medical history of HIV on HAART therapy, factor V Leiden deficiency on Coumadin, anxiety depression, coronary artery disease with last stent in 2003, diastolic CHF came in with complain of shortness of breath for the past 4-5 days. He denies any history of fevers, chills nausea vomiting or diarrhea. Denies any recent antibiotic use. He is compliant with his HIV medication and his last known water load was undetectable. He does not know his CD4 count. Has no history of heart failure is not taking any diuretics. Denies any lightheadedness or dizziness. Does help palpitation since more pronounced last night. Patient did not have any abdominal pain bowel or urinary complaints.Patient was admitted to the ER with lab remarkable for INR of 3, d- dimer of 461, bilirubin total 2.5 direct 0.6 indirect 1.9 AST 40, BNP 246. Chest CTA done which did not show any pulmonary embolism, moderate lower lobe airspace disease which could represent pneumonia versus pulmonary edema He was assessed with afib with RVR and acute diastolic CHF. He was treated with beta blockers and diuresis and improved. HE was discharged on oral lasix and metoprolol succinate in a stable condition (2) CAD (coronary artery disease) Priority: Primary Status: Acute Qualifiers: Coronary Disease-Associated Artery/Lesion type: unspecified vessel or lesion type Associated angina: without angina Qualified Code(s): I25.10 - Atherosclerotic heart disease of [place] coronary artery without angina pectoris (3) Diabetes mellitus type II, non insulin dependent Priority: Primary Status: Chronic (4) Factor V Leiden Priority: Primary Status: Chronic (5) HIV (human immunodeficiency virus infection) Priority: Primary Status: Chronic Qualifiers: HIV symptom status: asymptomatic Qualified Code(s): Z21 - Asymptomatic human immunodeficiency virus [HIV] infection status (6) Hypertension Priority: Primary Status: Chronic Qualifiers: Hypertension type: essential hypertension Qualified Code(s): I10 - Essential (primary) hypertension (7) Supratherapeutic INR Priority: Primary Status: Acute (8) PNA (pneumonia) Priority: Primary Status: Acute Qualifiers: Pneumonia type: due to unspecified organism Laterality: left Lung location: lower lobe of lung Qualified Code(s): J18.1 - Lobar pneumonia, unspecified organism (9) DVT prophylaxis Priority: Primary Status: Acute Hospital course: Mr. Ramesh is a 73 year old male - Time Spent with Patient Total time spent providing and/or coordinating discharge services: - Discharge Medications Prescriptions: New Metoprolol XL (24 HR) Succ [Toprol Xl] 50 mg PO DAILY #90 tab.er.24h Furosemide [Lasix] 40 mg PO DAILY #60 tab Continued Lisinopril [Zestril] 20 mg PO DAILY Lamivudine/Zidovudine [Combivir] 1 tab PO BID Venlafaxine HCl [Venlafaxine HCl ER] 75 mg PO DAILY Omeprazole 20 mg PO DAILY Glimepiride [Amaryl] 2 mg PO BID Warfarin [Coumadin] 3 mg PO SUMOWEFR Ergocalciferol (VITAMIN D2) [Vitamin D2] 50,000 unit PO MO Indinavir [Crixivan] 800 mg PO TID Warfarin [Coumadin] 4 mg PO TUTH Aspirin [Lo-Dose Aspirin EC] 81 mg PO DAILY Warfarin [Coumadin] 5 mg PO Home Medications: Glimepiride [Amaryl] 2 mg PO BID 11/16/15 [History] Lamivudine/Zidovudine [Combivir] 1 tab PO BID 11/16/15 [History] Lisinopril [Zestril] 20 mg PO DAILY 11/16/15 [History] Omeprazole 20 mg PO DAILY 11/16/15 [History] Venlafaxine HCl [Venlafaxine HCl ER] 75 mg PO DAILY 11/16/15 [History] Warfarin [Coumadin] 3 mg PO SUMOWEFR 11/05/16 [History] Aspirin [Lo-Dose Aspirin EC] 81 mg PO DAILY 01/09/17 [History] Ergocalciferol (VITAMIN D2) [Vitamin D2] 50,000 unit PO MO 01/09/17 [History] Indinavir [Crixivan] 800 mg PO TID 01/09/17 [History] Warfarin [Coumadin] 4 mg PO TUTH 01/09/17 [History] Warfarin [Coumadin] 5 mg PO SA 03/22/19 [History] Furosemide [Lasix] 40 mg PO DAILY #60 tab 03/24/19 [Rx] Metoprolol XL (24 HR) Succ [Toprol Xl] 50 mg PO DAILY #90 tab.er.24h 03/24/19 [Rx] Allergies/Adverse Reactions: Allergy/AdvReac Type Severity Reaction Status Date / Time Sulfa (Sulfonamide AdvReac SEE COMMENT Verified 03/22/19 22:12 Antibiotics) Date of admission: 03/22/19 10:10 Primary care physician: Jun Shah MD Consults: 03/22/19 13:10 Consult to Cardiology [CONS] Routine Comment: Consulting Provider: Cardiology Mcintosh Reason for Consult: tachycardia, irregular rhythm Call Completed: Yes - Constitutional Vitals: Temp Pulse Resp BP Pulse Ox 97.7 F 87 18 160/87 98 03/24/19 07:01 03/24/19 07:01 03/24/19 07:01 03/24/19 07:01 03/24/19 07:01 Exam: Constitutional: Vitals as noted. Conversant. No Apparent Distress. Thin and cac hectic. Eyes : Sclera white, conjunctiva clear, no lid lag, PEARLA. ENT : Grossly normal hearing. Moist mucus membranes. No JVD, no cervical lymphadenopathy. no thyromegaly or mass. Respiratory : Bibasilar crackles Cardiovascular : Normal rate, regular rhythm. GI/Abdominal : Soft, Non-tender, mildly distended, normal bowel sounds, soft, no peritoneal signs. no orgenomegaly or mass appreciated. no hernia. Musculoskeletal: no deformity noted. No trace edema , pulses palpable and symmetrical in UE/LE. no calf tenderness. Neurological: AO X3, CN II-XII grossly intact, grossly normal motor and sensory exam. Skin: lipoatrophy of face Pych: Good insight and judgement. Intact memory. AOx3. - Patient Status Disposition: Home, Self-Care Condition: Fair - Discharge Instructions Follow Up With: Jun Shah MD [Primary Care Provider] - 04/05/19 1:15 pm (Apt made on 03/24/19.)
[2019-03-24] MEDS ORDERED: *HR* Warfarin 3 MG TABLET PO ONE (18:00)
[2019-03-25] MEDS ORDERED: Metoprolol XL (24 HR) Succ 50 MG TAB.ER.24H PO SCH (09:00)
--- NOTE | 2019-03-25 11:59 | Electrocardiograph Report ---
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
== END 2019-03-24 11:46 | disposition home or self-care (01) ==
LOC: EMEROOARM 05:43 → 2ANU 05:43 → SUATTDRO 10:10 → 2ANU 11:02
PROVIDERS: ADMIT Internal Medicine; ATTEND Internal Medicine

== ENCOUNTER 2019-04-18 09:20 | Observation (INO) ==
[2019-04-18 10:06] LABS: Basophils % 0.3 %; Eosinophils # 0.2 K/mcL (0.0-0.6); Eosinophils % 2.6 %; Hematocrit 44.9 % (37.5-50.1); Hemoglobin 15.3 g/dL (12.9-16.9); Immature Granulocytes % 0.3 % (0-4); Lymphocytes # 2.4 K/mcL (0.6-4.6); Lymphocytes % 38.6 %; Mean Corpuscular HGB Conc 34.1 g/dL (31.6-35.5); Mean Corpuscular Hemoglobin 36.3 pg (28.0-33.3); Mean Corpuscular Volume 106.4 fL (83.0-100.0); Mean Platelet Volume 10.6 fL (9.4-12.4); Monocytes # 0.6 K/mcL (0.0-1.3); Monocytes % 9.6 %; Platelet Count 107 K/mcL (140-400); Red Blood Count 4.22 M/mcL (4.19-5.50); Red Cell Distribution Width 14.4 % (11.5-14.5); Segmented Neutrophils % 48.6 %; White Blood Count 6.3 K/mcL (4.3-11.1)
[2019-04-18 10:14] LABS: INR 2.4; Prothrombin Time 27.5 Seconds (9.4-12.1)
[2019-04-18 10:24] LABS: BUN/Creatinine Ratio 20 (6-26); Blood Urea Nitrogen 16 mg/dL (8-23); Calcium 9.5 mg/dL (8.6-10.3); Carbon Dioxide 30 mEq/L (23-29); Chloride 101 mEq/L (98-107); Glucose 128 mg/dL (70-105); Osmolality,Calculated 293 (280-300); Sodium 140 mEq/L (136-145); Troponin I < 0.03 ng/mL (< 0.04); eGFR For African Americans > 60 (> 60); eGFR For Non-African Americans > 60 (> 60)
[2019-04-18] MEDS ORDERED: Furosemide 40 MG/4 ML VIAL IVP ONE (10:57)
[2019-04-18] MEDS ORDERED: Ondansetron 4 MG/2 ML VIAL IVP PRN (12:12)
[2019-04-18] MEDS ORDERED: Acetaminophen 325 MG TABLET PO PRN (12:12)
[2019-04-18] MEDS: Furosemide 40 MG/4 ML VIAL IVP SCH ×2 (14:50→16:55)
[2019-04-18] MEDS: [UNRECOGNIZED DRUG - OTHER] PO SCH ×2 (16:54→22:06)
[2019-04-18] MEDS ORDERED: Warfarin perPT PO PRN (18:00)
[2019-04-18] MEDS ORDERED: *HR* Warfarin 3 MG TABLET PO ONE (18:00)
[2019-04-18] MEDS: *HR* Glimepiride 2 MG TABLET PO SCH (20:00)
[2019-04-18] MEDS: Metoprolol XL (24 HR) Succ 50 MG TAB.ER.24H PO SCH (20:00)
[2019-04-19 01:59] LABS: Hematocrit 45.1 % (37.5-50.1); Mean Corpuscular HGB Conc 35.5 g/dL (31.6-35.5); Mean Corpuscular Hemoglobin 35.7 pg (28.0-33.3); Mean Corpuscular Volume 100.7 fL (83.0-100.0); Mean Platelet Volume 11.1 fL (9.4-12.4); Platelet Count 133 K/mcL (140-400); Red Blood Count 4.48 M/mcL (4.19-5.50); White Blood Count 6.6 K/mcL (4.3-11.1)
[2019-04-19 02:07] LABS: INR 2.5; Prothrombin Time 28.9 Seconds (9.4-12.1)
[2019-04-19 02:16] LABS: BUN/Creatinine Ratio 21 (6-26); Blood Urea Nitrogen 18 mg/dL (8-23); Calcium 9.6 mg/dL (8.6-10.3); Carbon Dioxide 28 mEq/L (23-29); Chloride 97 mEq/L (98-107); Chol/HDL Ratio 6.6 (0-4.9); Cholesterol 151 mg/dL (< 200); Glucose 90 mg/dL (70-105); HDL Cholesterol 23 mg/dL (40-59); LDL Cholesterol,Calculated 88 mg/dL (0-99); Magnesium 1.6 mg/dL (1.6-2.6); Osmolality,Calculated 285 (280-300); Potassium 3.2 mEq/L (3.5-5.1); Sodium 137 mEq/L (136-145); Triglycerides 202 mg/dL (< 150); eGFR For African Americans > 60 (> 60); eGFR For Non-African Americans > 60 (> 60)
[2019-04-19 07:20] VITALS: BP 152/83
[2019-04-19] MEDS: Furosemide 40 MG/4 ML VIAL IVP SCH (07:37)
[2019-04-19] MEDS: *HR* Glimepiride 2 MG TABLET PO SCH (07:38)
[2019-04-19] MEDS: [UNRECOGNIZED DRUG - OTHER] PO SCH (07:38)
[2019-04-19] MEDS: Metoprolol XL (24 HR) Succ 50 MG TAB.ER.24H PO SCH (07:38)
[2019-04-19] MEDS ORDERED: Venlafaxine XR (24 HR) 75 MG CAP.ER.24H PO SCH (09:00)
[2019-04-19] MEDS ORDERED: Aspirin Enteric Coated 81 MG Tablet PO SCH (09:00)
[2019-04-19] MEDS ORDERED: *HR* Warfarin 3 MG TABLET PO ONE (18:00)
== END 2019-04-19 11:51 | disposition home or self-care (01) ==
LOC: 3BNU 09:20 → EMEROOARM 09:20 → SUATTDRO 11:41 → 3BNU 13:22
PROVIDERS: ADMIT Internal Medicine; ATTEND Family Medicine

== ENCOUNTER 2021-04-26 16:43 | Inpatient (IN) ==
[2021-04-26] MEDS ORDERED: 0.9 % Sodium Chloride 1,000 ML IVC ONE (16:48)
[2021-04-26 17:16] LABS: Basophils % 0.1 %; Lymphocytes % 10.9 %; Red Blood Count 4.48 M/mcL (4.19-5.50)
[2021-04-26 17:18] LABS: Hematocrit 40.9 % (37.5-50.1); Hemoglobin 13.9 g/dL (12.9-16.9); Immature Granulocytes % 0.4 % (0-4); Immature Platelets 4.4 % (1.1-6.1); Mean Corpuscular Volume 91.3 fL (83.0-100.0); Monocytes # 0.7 K/mcL (0.0-1.3); Monocytes % 7.7 %; Neutrophils # 7.7 K/mcL (1.6-8.9); Platelet Count 142 K/mcL (140-400); Red Cell Distribution Width 12.4 % (11.5-14.5); Segmented Neutrophils % 80.9 %; White Blood Count 9.5 K/mcL (4.3-11.1)
[2021-04-26 17:23] LABS: INR 3.1; Prothrombin Time 33.9 Seconds (9.4-12.1)
[2021-04-26 17:40] LABS: Alanine Aminotransferase 37 Units/L (7-52); Albumin 3.2 g/dL (3.5-5.7); Alkaline Phosphatase 55 Units/L (34-104); Aspartate Amino Transferase 53 Units/L (13-39); BUN/Creatinine Ratio 30 (6-26); Bilirubin,Indirect 0.9 mg/dL (0.0-1.0); Bilirubin,Total 1.9 mg/dL (0.3-1.0); Blood Urea Nitrogen 29 mg/dL (8-23); Calcium 7.8 mg/dL (8.6-10.3); Carbon Dioxide 23 mEq/L (23-29); Chloride 98 mEq/L (98-107); Ethanol < 10 mg/dL (Less than 10); Globulin 3.2 g/dL (2.4-3.5); Glucose 332 mg/dL (70-105); Osmolality,Calculated 293 (280-300); Potassium 3.8 mEq/L (3.5-5.1); Sodium 132 mEq/L (136-145); Total Protein 6.4 g/dL (6.4-8.9); Troponin I < 0.03 ng/mL (< 0.04); eGFR For African Americans > 60 (> 60); eGFR For Non-African Americans > 60 (> 60)
[2021-04-26 17:41] LABS: Large Platelets Present (Not Present)
[2021-04-26 18:34] LABS: Bacteria,Urine Few per hpf (None-Few); Bilirubin,Urine Negative (Negative); Blood,Urine Small (Negative); Clarity,Urine Turbid (Clear); Color,Urine Yellow (Yellow); Glucose,Urine (UA) 500 mg/dL (Normal); Hyaline Casts,Urine Few per lpf (None Seen); Ketones,Urine 10 mg/dL (Negative); Leukocyte Esterase,Urine Large (Negative); Mucus,Urine Few per lpf (None-Few); Nitrite,Urine Negative (Negative); PH,Urine 5.5 pH Units (5.0-8.0); Protein,Urine 30 mg/dL (Neg-Trace); RBC,Urine 0-3 per hpf (0-3); Specific Gravity,Urine 1.012 (1.010-1.025); Urobilinogen,Urine Normal (Normal); WBC,Urine 50-100 per hpf (0-3)
[2021-04-26] MEDS ORDERED: cefTRIAXone 1,000 MG in 0.9 % Sodium Chloride Mini Bag 100 ML IVPB ONE (18:38)
[2021-04-26 18:44] LABS: Amphetamine Screen,Urine Negative ng/mL (Cutoff=1000); Barbiturate Screen,Urine Negative ng/mL (Cutoff=200); Benzodiazepines Screen,Urine Negative ng/mL (Cutoff=200); Cannabinoid Screen,Urine Negative ng/mL (Cutoff = 50); Cocaine Screen,Urine Negative ng/mL (Cutoff= 300); Opiate Screen,Urine Negative ng/mL (Cutoff=300); Phencyclidine Screen,Urine Negative ng/mL (Cutoff=25)
[2021-04-26] MEDS ORDERED: 0.9 % Sodium Chloride 500 ML IVC ONE (20:09)
[2021-04-26] MEDS ORDERED: Melatonin 3 MG TABLET PO PRN (21:07)
[2021-04-26] MEDS ORDERED: Ondansetron 4 MG/2 ML VIAL IVP PRN (21:07)
[2021-04-26] MEDS ORDERED: Naloxone 0.4 MG/ML INJ IVP PRN (21:07)
[2021-04-26] MEDS ORDERED: Acetaminophen 325 MG TABLET PO PRN (21:07)
[2021-04-26] MEDS ORDERED: Dextrose Gel 15 GM/37.5 ML TUBE PO PRN ×2 (21:48)
[2021-04-26] MEDS ORDERED: *HR* Dextrose 50 % in Water (Syg) 50 ML SYRINGE IVP PRN (21:48)
[2021-04-26] MEDS ORDERED: D5% in Water 1,000 ML IVC PRN (21:48)
[2021-04-26] MEDS: Insulin LISPRO 300 UNITS/3 ML VIAL SUBQ SCH (22:25)
[2021-04-27 05:14] LABS: BUN/Creatinine Ratio 33 (6-26); Blood Urea Nitrogen 36 mg/dL (8-23); Calcium 7.7 mg/dL (8.6-10.3); Carbon Dioxide 25 mEq/L (23-29); Chloride 102 mEq/L (98-107); Glucose 286 mg/dL (70-105); Magnesium 1.8 mg/dL (1.6-2.6); Osmolality,Calculated 297 (280-300); Phosphorous 3.2 mg/dL (2.7-4.5); Potassium 3.5 mEq/L (3.5-5.1); Sodium 134 mEq/L (136-145); eGFR For African Americans > 60 (> 60); eGFR For Non-African Americans > 60 (> 60)
[2021-04-27 05:18] LABS: Basophils % 0.3 %; Eosinophils % 0.1 %; Hematocrit 37.7 % (37.5-50.1); Hemoglobin 12.5 g/dL (12.9-16.9); Immature Granulocytes % 0.4 % (0-4); Lymphocytes # 1.4 K/mcL (0.6-4.6); Lymphocytes % 18.8 %; Mean Corpuscular HGB Conc 33.2 g/dL (31.6-35.5); Mean Corpuscular Hemoglobin 30.6 pg (28.0-33.3); Mean Corpuscular Volume 92.2 fL (83.0-100.0); Mean Platelet Volume 10.6 fL (9.4-12.4); Monocytes # 0.7 K/mcL (0.0-1.3); Monocytes % 9.6 %; Neutrophils # 5.3 K/mcL (1.6-8.9); Platelet Count 129 K/mcL (140-400); Red Blood Count 4.09 M/mcL (4.19-5.50); Red Cell Distribution Width 12.7 % (11.5-14.5); Segmented Neutrophils % 70.8 %; White Blood Count 7.5 K/mcL (4.3-11.1)
[2021-04-27 05:36] LABS: INR 3.2; Prothrombin Time 35.4 Seconds (9.4-12.1)
[2021-04-27] MEDS: cefTRIAXone 1,000 MG in Water for inj. (sterile) 10 ML IVP SCH (08:13)
[2021-04-27] MEDS: Aspirin Enteric Coated 81 MG Tablet PO SCH (08:14)
[2021-04-27] MEDS: DOVATO PO SCH (08:14)
[2021-04-27] MEDS: Insulin LISPRO 300 UNITS/3 ML VIAL SUBQ SCH ×3 (08:14→18:04)
[2021-04-27] MEDS: carvediloL 6.25 MG TABLET PO SCH ×2 (08:14→18:03)
[2021-04-27] MEDS: lisinopriL 20 MG TABLET PO SCH (08:14)
[2021-04-27] MEDS: Insulin DETEMIR 100 UNIT/ML X5UNITS SUBQ SCH ×2 (08:21→21:54)
[2021-04-27 11:01] LABS: Estimated Average Glucose 280 mg/dl; Hemoglobin A1C 11.4 %
[2021-04-27] MEDS ORDERED: *HR* Warfarin 2 MG TABLET PO ONE (18:00)
[2021-04-27] MEDS ORDERED: *HR* Warfarin 3 MG TABLET PO SCH (18:00)
[2021-04-27] MEDS ORDERED: Warfarin perPT PO PRN (18:00)
[2021-04-27] MEDS: Furosemide 20 MG TABLET PO SCH (18:03)
[2021-04-28 06:11] LABS: INR 2.7
[2021-04-28 06:31] LABS: Triiodothyronine (T3) Free 2.27 pg/mL (2.50-3.90)
[2021-04-28] MEDS: carvediloL 6.25 MG TABLET PO SCH ×2 (10:00→17:54)
[2021-04-28] MEDS: DOVATO PO SCH (10:00)
[2021-04-28] MEDS: Aspirin Enteric Coated 81 MG Tablet PO SCH (10:00)
[2021-04-28] MEDS: Furosemide 20 MG TABLET PO SCH ×2 (10:00→17:54)
[2021-04-28] MEDS: Insulin LISPRO 300 UNITS/3 ML VIAL SUBQ SCH ×3 (10:00→17:54)
[2021-04-28] MEDS: Insulin DETEMIR 100 UNIT/ML X5UNITS SUBQ SCH ×2 (10:00→20:05)
[2021-04-28] MEDS: cefTRIAXone 1,000 MG in Water for inj. (sterile) 10 ML IVP SCH (10:00)
[2021-04-28] MEDS: lisinopriL 20 MG TABLET PO SCH (10:00)
[2021-04-28] MEDS ORDERED: *HR* Warfarin 3 MG TABLET PO ONE (18:00)
[2021-04-28] MEDS: ALPRAZolam 0.25 MG TABLET PO PRN (19:55)
[2021-04-28] MEDS: Cefdinir 300 MG CAPSULE PO SCH (19:55)
[2021-04-29 03:02] LABS: Hemoglobin 12.2 g/dL (12.9-16.9)
[2021-04-29 03:04] LABS: Hematocrit 34.9 % (37.5-50.1)
[2021-04-29 03:12] LABS: INR 2.3
[2021-04-29 03:24] LABS: BUN/Creatinine Ratio 28 (6-26); Blood Urea Nitrogen 21 mg/dL (8-23); Calcium 7.9 mg/dL (8.6-10.3); Carbon Dioxide 26 mEq/L (23-29); Chloride 101 mEq/L (98-107); Glucose 163 mg/dL (70-105); Magnesium 1.7 mg/dL (1.6-2.6); Osmolality,Calculated 291 (280-300); Sodium 137 mEq/L (136-145); eGFR For African Americans > 60 (> 60); eGFR For Non-African Americans > 60 (> 60)
[2021-04-29] MEDS: Insulin LISPRO 300 UNITS/3 ML VIAL SUBQ SCH ×3 (08:15→18:03)
[2021-04-29] MEDS: lisinopriL 20 MG TABLET PO SCH (09:24)
[2021-04-29] MEDS: carvediloL 6.25 MG TABLET PO SCH ×2 (09:24→18:03)
[2021-04-29] MEDS: Aspirin Enteric Coated 81 MG Tablet PO SCH (09:24)
[2021-04-29] MEDS: Cefdinir 300 MG CAPSULE PO SCH ×2 (09:24→20:25)
[2021-04-29] MEDS: Furosemide 20 MG TABLET PO SCH ×2 (09:24→18:03)
[2021-04-29] MEDS: DOVATO PO SCH (09:27)
[2021-04-29] MEDS: Insulin DETEMIR 100 UNIT/ML X5UNITS SUBQ SCH ×2 (09:27→20:26)
[2021-04-29] MEDS ORDERED: *HR* Warfarin 3 MG TABLET PO ONE (18:00)
[2021-04-29] MEDS: ALPRAZolam 0.25 MG TABLET PO PRN (20:24)
[2021-04-30 01:44] LABS: INR 2.2; Prothrombin Time 24.7 Seconds (9.4-12.1)
[2021-04-30] MEDS ORDERED: Ergocalciferol (VIT D2) 50,000 UNIT (1.25MG) CAP PO SCH (09:00)
[2021-04-30] MEDS: Furosemide 20 MG TABLET PO SCH ×2 (09:04→17:55)
[2021-04-30] MEDS: Cefdinir 300 MG CAPSULE PO SCH ×2 (09:04→21:42)
[2021-04-30] MEDS: carvediloL 6.25 MG TABLET PO SCH ×2 (09:04→17:55)
[2021-04-30] MEDS: Aspirin Enteric Coated 81 MG Tablet PO SCH (09:04)
[2021-04-30] MEDS: lisinopriL 20 MG TABLET PO SCH (09:04)
[2021-04-30] MEDS: Insulin DETEMIR 100 UNIT/ML X5UNITS SUBQ SCH ×2 (09:05→21:42)
[2021-04-30] MEDS: Insulin LISPRO 300 UNITS/3 ML VIAL SUBQ SCH ×3 (09:05→17:55)
[2021-04-30] MEDS: DOVATO PO SCH (09:05)
[2021-04-30] MEDS ORDERED: *HR* Warfarin 3 MG TABLET PO ONE (18:00)
[2021-05-01 06:12] LABS: INR 2.4; Prothrombin Time 26.9 Seconds (9.4-12.1)
[2021-05-01] MEDS: DOVATO PO SCH (08:34)
[2021-05-01] MEDS: Insulin LISPRO 300 UNITS/3 ML VIAL SUBQ SCH ×2 (08:34→12:22)
[2021-05-01] MEDS: carvediloL 6.25 MG TABLET PO SCH (08:35)
[2021-05-01] MEDS: Furosemide 20 MG TABLET PO SCH (08:35)
[2021-05-01] MEDS: Aspirin Enteric Coated 81 MG Tablet PO SCH (08:35)
[2021-05-01] MEDS: lisinopriL 20 MG TABLET PO SCH (08:35)
[2021-05-01] MEDS: Cefdinir 300 MG CAPSULE PO SCH (08:35)
[2021-05-01] MEDS: Insulin DETEMIR 100 UNIT/ML X5UNITS SUBQ SCH (08:35)
[2021-05-01 08:53] LABS: BUN/Creatinine Ratio 17 (6-26); Blood Urea Nitrogen 14 mg/dL (8-23); Calcium 8.8 mg/dL (8.6-10.3); Carbon Dioxide 32 mEq/L (23-29); Chloride 98 mEq/L (98-107); Glucose 188 mg/dL (70-105); Osmolality,Calculated 291 (280-300); Potassium 3.2 mEq/L (3.5-5.1); Sodium 138 mEq/L (136-145); eGFR For African Americans > 60 (> 60); eGFR For Non-African Americans > 60 (> 60)
[2021-05-01 10:52] VITALS: BP 122/62; PULSE 65; TEMP 97.5; O2SAT 93
== END 2021-05-01 13:37 | DRG 689 ==
LOC: EMEROOARM 16:43 → 3BNU 16:43 → SUATTDRO 04-27 15:01
PROVIDERS: ADMIT Internal Medicine; ATTEND Internal Medicine

== ENCOUNTER 2021-12-19 10:37 | Inpatient (IN) ==
[2021-12-19] MEDS ORDERED: 0.9 % Sodium Chloride 1,000 ML IVC ONE (12:26)
[2021-12-19 12:58] LABS: INR 3.5; Prothrombin Time 38.4 Seconds (9.4-12.1)
[2021-12-19 13:00] LABS: Basophils % 0.6 %; Eosinophils # 0.1 K/mcL (0.0-0.6); Eosinophils % 2.1 %; Hematocrit 45.4 % (37.5-50.1); Hemoglobin 15.6 g/dL (12.9-16.9); Immature Granulocytes % 0.4 % (0-4); Lymphocytes % 38.1 %; Mean Corpuscular HGB Conc 34.4 g/dL (31.6-35.5); Mean Corpuscular Hemoglobin 30.2 pg (28.0-33.3); Mean Platelet Volume 11.5 fL (9.4-12.4); Monocytes # 0.5 K/mcL (0.0-1.3); Neutrophils # 2.7 K/mcL (1.6-8.9); Platelet Count 119 K/mcL (140-400); Red Blood Count 5.16 M/mcL (4.19-5.50); Segmented Neutrophils % 49.8 %; White Blood Count 5.4 K/mcL (4.3-11.1)
[2021-12-19 13:11] LABS: BUN/Creatinine Ratio 16 (6-26); Blood Urea Nitrogen 16 mg/dL (8-23); Calcium 9.5 mg/dL (8.6-10.3); Carbon Dioxide 26 mEq/L (23-29); Chloride 99 mEq/L (98-107); Glucose 355 mg/dL (70-105); Osmolality,Calculated 297 (280-300); Sodium 136 mEq/L (136-145); Thyroid Stimulating Hormone 3.182 mcIU/mL (0.340-5.600); Troponin I < 0.03 ng/mL (< 0.04); eGFR For African Americans > 60 (> 60); eGFR For Non-African Americans > 60 (> 60)
[2021-12-19] MEDS ORDERED: Naloxone 0.4 MG/ML INJ IVP PRN (13:45)
[2021-12-19] MEDS ORDERED: D5% in Water 1,000 ML IVC PRN (13:47)
[2021-12-19] MEDS ORDERED: Dextrose Gel 15 GM/37.5 ML TUBE PO PRN ×2 (13:47)
[2021-12-19] MEDS ORDERED: *HR* Dextrose 50 % in Water (Syg) 50 ML SYRINGE IVP PRN (13:47)
[2021-12-19] MEDS ORDERED: Perflutren Lipid Microsphere 1.3 ML in 0.9 % Sodium Chloride 8.7 ML IVP PRN (14:19)
[2021-12-19 16:14] LABS: Estimated Average Glucose 235 mg/dl; Hemoglobin A1C 9.8 %
[2021-12-19] MEDS ORDERED: DilTIAZem 50 MG/50 ML IV.SOLN IVC SCH (17:00)
[2021-12-19] MEDS: carvediloL 25 MG TABLET PO SCH (17:38)
[2021-12-19] MEDS: Furosemide 20 MG TABLET PO SCH (17:38)
[2021-12-19] MEDS: Insulin LISPRO 300 UNITS/3 ML VIAL SUBQ SCH ×2 (17:59→20:58)
[2021-12-19] MEDS ORDERED: Warfarin perPT PO PRN (18:00)
[2021-12-20 03:24] LABS: Basophils % 0.6 %; Hemoglobin 14.2 g/dL (12.9-16.9); Immature Granulocytes % 0.2 % (0-4); Red Cell Distribution Width 13.2 % (11.5-14.5)
[2021-12-20 03:26] LABS: Eosinophils # 0.1 K/mcL (0.0-0.6); Hematocrit 41.2 % (37.5-50.1); Immature Platelets 8.4 % (1.1-6.1); Lymphocytes # 2.8 K/mcL (0.6-4.6); Lymphocytes % 53.9 %; Mean Corpuscular HGB Conc 34.5 g/dL (31.6-35.5); Mean Corpuscular Hemoglobin 30.7 pg (28.0-33.3); Mean Platelet Volume 11.2 fL (9.4-12.4); Monocytes # 0.4 K/mcL (0.0-1.3); Neutrophils # 1.8 K/mcL (1.6-8.9); Platelet Count 100 K/mcL (140-400); Red Blood Count 4.63 M/mcL (4.19-5.50); Segmented Neutrophils % 35.3 %; White Blood Count 5.1 K/mcL (4.3-11.1)
[2021-12-20 03:29] LABS: INR 3.8; Prothrombin Time 41.7 Seconds (9.4-12.1)
[2021-12-20 04:30] LABS: BUN/Creatinine Ratio 17 (6-26); Blood Urea Nitrogen 15 mg/dL (8-23); Calcium 8.8 mg/dL (8.6-10.3); Carbon Dioxide 27 mEq/L (23-29); Chloride 103 mEq/L (98-107); Glucose 160 mg/dL (70-105); Osmolality,Calculated 290 (280-300); Potassium 3.4 mEq/L (3.5-5.1); Sodium 138 mEq/L (136-145); eGFR For African Americans > 60 (> 60); eGFR For Non-African Americans > 60 (> 60)
[2021-12-20] MEDS: Insulin LISPRO 300 UNITS/3 ML VIAL SUBQ SCH ×4 (07:31→21:23)
[2021-12-20] MEDS: DOLUTEGRAVIR SODIUM PO SCH (07:36)
[2021-12-20] MEDS: LAMIVUDINE PO SCH (07:36)
[2021-12-20] MEDS: Aspirin Enteric Coated 81 MG Tablet PO SCH (07:36)
[2021-12-20] MEDS: Furosemide 20 MG TABLET PO SCH ×2 (07:36→16:59)
[2021-12-20] MEDS: carvediloL 25 MG TABLET PO SCH (07:36)
[2021-12-20] MEDS ORDERED: lisinopriL 20 MG TABLET PO SCH (09:00)
[2021-12-20] MEDS ORDERED: Metoprolol XL (24 HR) Succ 25 MG TAB.ER.24H PO SCH (09:00)
[2021-12-20] MEDS ORDERED: Metoprolol XL (24 HR) Succ 50 MG TAB.ER.24H PO SCH (21:00)
[2021-12-21 05:04] LABS: Basophils % 0.6 %; Eosinophils # 0.1 K/mcL (0.0-0.6); Eosinophils % 2.4 %; Hematocrit 44.1 % (37.5-50.1); Hemoglobin 14.9 g/dL (12.9-16.9); Immature Granulocytes % 0.2 % (0-4); Immature Platelets 8.1 % (1.1-6.1); Lymphocytes # 2.5 K/mcL (0.6-4.6); Lymphocytes % 46.8 %; Mean Corpuscular HGB Conc 33.8 g/dL (31.6-35.5); Mean Corpuscular Hemoglobin 30.7 pg (28.0-33.3); Mean Corpuscular Volume 90.9 fL (83.0-100.0); Mean Platelet Volume 11.1 fL (9.4-12.4); Monocytes # 0.4 K/mcL (0.0-1.3); Monocytes % 8.2 %; Neutrophils # 2.2 K/mcL (1.6-8.9); Platelet Count 104 K/mcL (140-400); Red Blood Count 4.85 M/mcL (4.19-5.50); Red Cell Distribution Width 13.3 % (11.5-14.5); Segmented Neutrophils % 41.8 %; White Blood Count 5.4 K/mcL (4.3-11.1)
[2021-12-21 05:20] LABS: Prothrombin Time 32.8 Seconds (9.4-12.1)
[2021-12-21 06:43] LABS: BUN/Creatinine Ratio 16 (6-26); Blood Urea Nitrogen 14 mg/dL (8-23); Calcium 8.9 mg/dL (8.6-10.3); Carbon Dioxide 23 mEq/L (23-29); Chloride 103 mEq/L (98-107); Glucose 176 mg/dL (70-105); Osmolality,Calculated 289 (280-300); Potassium 3.7 mEq/L (3.5-5.1); Sodium 137 mEq/L (136-145); eGFR For African Americans > 60 (> 60); eGFR For Non-African Americans > 60 (> 60)
[2021-12-21] MEDS ORDERED: Regadenoson 0.4 MG/5 ML SYRINGE IVP ONE (08:10)
[2021-12-21] MEDS ORDERED: Valsartan 160 MG TABLET PO SCH (09:00)
[2021-12-21] MEDS: Insulin LISPRO 300 UNITS/3 ML VIAL SUBQ SCH ×4 (10:39→20:25)
[2021-12-21] MEDS: Metoprolol XL (24 HR) Succ 50 MG TAB.ER.24H PO SCH ×2 (10:40→20:28)
[2021-12-21] MEDS: LAMIVUDINE PO SCH (10:40)
[2021-12-21] MEDS: DOLUTEGRAVIR SODIUM PO SCH (10:40)
[2021-12-21] MEDS: Aspirin Enteric Coated 81 MG Tablet PO SCH (10:40)
[2021-12-21] MEDS: Furosemide 20 MG TABLET PO SCH ×2 (10:40→18:16)
[2021-12-21] MEDS: Valsartan 80 MG TABLET PO SCH (10:44)
[2021-12-21] MEDS ORDERED: *HR* Warfarin 1 MG TABLET PO ONE (18:00)
[2021-12-21] MEDS ORDERED: Warfarin 1 MG, Warfarin 0.5 MG PO ONE (18:00)
[2021-12-22 04:58] LABS: INR 2.3; Prothrombin Time 25.2 Seconds (9.4-12.1)
[2021-12-22] MEDS: Metoprolol XL (24 HR) Succ 50 MG TAB.ER.24H PO SCH (08:00)
[2021-12-22] MEDS: Valsartan 80 MG TABLET PO SCH (08:00)
[2021-12-22] MEDS: Furosemide 20 MG TABLET PO SCH (08:00)
[2021-12-22] MEDS: Aspirin Enteric Coated 81 MG Tablet PO SCH (08:00)
[2021-12-22] MEDS: DOLUTEGRAVIR SODIUM PO SCH (08:01)
[2021-12-22] MEDS: LAMIVUDINE PO SCH (08:01)
[2021-12-22] MEDS: Insulin LISPRO 300 UNITS/3 ML VIAL SUBQ SCH (08:02)
[2021-12-22 11:04] VITALS: BP 156/99; PULSE 95; TEMP 98.2; O2SAT 96
[2021-12-22] MEDS ORDERED: *HR* Warfarin 3 MG TABLET PO ONE (18:00)
== END 2021-12-22 13:23 | disposition home or self-care (01) | DRG 309 ==
LOC: 3NENU 10:37 → EMEROOARM 10:37 → 3NENU 14:59
PROVIDERS: ADMIT Internal Medicine; ATTEND Internal Medicine